=== PATIENT | male | born 1945 | race African-American/Black ===

== ENCOUNTER 2020-03-23 12:52 | Inpatient (IN) | payer MEDICARE, SELFPAY ==
[2020-03-23 12:58] LABS: Glucose, Whole Blood 241 mg/dL (60-115)
[2020-03-23 13:03] VITALS: BP 138/80; PULSE 77; RESP 21; TEMP 36.9; O2SAT 98; BMI 29.2
--- NOTE | 2020-03-23 13:05 | ED_ITS ---
HPI - Weakness General Chief complaint: Altered Mental Status Stated complaint: weakness, lethargy Time Seen by Provider: 03/23/20 13:04 Source: EMS Mode of arrival: EMS History of Present Illness HPI Narrative: 74-year-old male with a past medical history of hypertension, hyperlipidemia, diabetes, hypothyroid, SUSIE, s/p permanent pacemaker BIBA to the ED for increased lethargy and generalized weakness worsening x1 week per EMS. Patient opens eyes to painful/verbal stimuli on exam, otherwise unable to obtain history. History limited due to patient's acute change in mental status. Attempted to call listed phone numbers for family members without answer MD Complaint: generalized weakness Related Data Home Medications Medication Instructions Recorded Confirmed citalopram 1 tab PO DAILY 03/23/20 03/23/20 donepezil 1 tab PO BEDTIME 03/23/20 03/23/20 folic acid 1 tab PO DAILY 03/23/20 03/23/20 memantine 1 tab PO BID 03/23/20 03/23/20 metoprolol succinate 1 tab PO DAILY 03/23/20 03/23/20 multivitamin with folic acid 1 tab PO DAILY 03/23/20 03/23/20 [Tab-A-Gordon] quetiapine 1 tab PO DAILY 03/23/20 03/23/20 Allergies Allergy/AdvReac Type Severity Reaction Status Date / Time No Known Allergies Allergy Unverified 11/30/19 15:53 [No Known Allergies*] Review of Systems Review of Systems: Constitutional: +fatigue Neuro: + Weakness History limited due to patient's [facility] Past Medical History Attestation statement: The following information was validated with the patient. Medical History (Updated 03/23/20 @ 18:53 by JR Aponte) Asthma Dementia Diabetes mellitus, type 2 H/O cardiac pacemaker History of alcohol abuse HLD (hyperlipidemia) Hypertension Hypothyroidism Surgical History (Updated 03/23/20 @ 18:50 by JR Aponte) H/O knee surgery Social History Social History (Updated 03/23/20 @ 18:51 by JR Aponte) Household Members: Family Alcohol intake: former Smoking Status: Never smoker Use of substances other than those prescribed or required for medical reasons: No Advance Directives: No Advance Directives Information Provided: No Physical Exam Vital Signs: Vital Signs: Last Vital Signs Temp 98.5 F 03/23/20 13:03 Pulse 77 03/23/20 19:43 Resp 16 03/23/20 19:43 BP 144/76 H 03/23/20 19:43 Pulse Ox 97 03/23/20 19:43 Body Mass Index 29.2 Const: General: lethargic Orientation/consciousness: lethargic HENMT: Other: Dry mucous membranes Head: Yes normal to inspection Ears: hearing grossly normal bilaterally General nose exam: Normal external nose present Face and sinus: Yes normal facial exam Mouth: mucous membranes dry Eyes: General: appearance normal, both eyes and all related structures Pupils: Equal, round and reactive pupils present Neck: Neck: Yes normal visual inspection Resp: Effort & Inspection: normal respiratory effort Auscultation: diminished lung sounds (Bibasilar) Cardio: Rate: regular rate Heart sounds: S1 normal heart sound present and S2 normal heart sound present GI: Inspection: Yes normal to inspection Palpation (GI): Soft to palpation, nontender, no guarding and not rigid Skin: Rashes: no rashes Wounds: no wounds Neuro: Other: Opens eyes to verbal/painful stimuli. Does not answer questions. Sleeping/snoring during exam Cranial nerves: Yes Equal, round and reactive pupils present Gait exam (Neuro): Normal gait present Extrem: Other: No LE edema General: Yes normal to inspection Course Course Course Narrative: * Lactic 2.4 > likely from dehydration rather than severe sepsis remaining labs pending * Troponin 104.6 > EKG nonischemic, likely from renal dysfunction. will obtain 3 hour repeat * Chest x-ray with mild bibasilar atelectasis * 1430- leukocytosis of 19.5 > empiric IV ceftriaxone ordered. Elevated Na+164 & BUN/ Creatinine slight anion gap c/w severe dehydration >> CT chest and A/P ordered to r/o COVID & obstruction * 1443-spoke to patient's daughter Delores at [phone] (or [phone]) reports patient with history of dementia and aggression, has been slowly declining/lethargic with decreased p.o. intake since . Also reports patient had a fall on Wednesday, unknown head trauma. Usually patient is supposed to ambulate with walker however refuses. At baseline is usually awake and alert talking confused/random thoughts, but admits more recently is lethargic/sleeping and bed-bound * Head CT without acute findings 1639- CT Chest/AP IMPRESSION: No significant disease within the lungs. Left nephrolithiasis without evidence of obstructive uropathy. Distention of the stomach for which some degree of gastric outlet obstruction is not excluded > surgery paged * Spoke to surgical JR Alvarez, recommended NG to likely nonsurgical candidate. Plan for admission * 1800--spoke to Nephrology, Dr. Vásquez recommended Leblanc, monitor I&Os and IV fluids. Will see in a.m. MDM - Weakness MDM Narrative Medical decision making narrative: 74-year-old male with a past medical history of hypertension, hyperlipidemia, diabetes, hypothyroid, SUSIE, s/p permanent pacemaker BIBA to the ED for increased lethargy and generalized weakness worsening x1 week per EMS. On exam NAD, nontoxic appearing, lethargic/sleeping on exam, opens eyes to painful and verbal stimuli. Concern for metabolic/infectious etiology vs encephalopathy vs viral syndrome/COVID-19 Plan: EKG, labs, UA, CXR, head CT, COVID-19/influenza/RSV, IVF, anticipated admission Medical Records Attestation: I reviewed the patient's medical records. Lab Data Attestation: I reviewed the patient's lab results. Result diagrams: 03/23/20 13:32 03/23/20 18:04 Labs: Lab Results 03/23/20 03/23/20 03/23/20 Range/Units 12:55 13:31 13:32 WBC 19.5 H (4.8-10.8) X10*3/uL RBC 5.76 (4.60-5.80) X10*6/uL Hgb 15.9 (14.0-18.0) g/dl Hct 52.4 H (42-52) % MCV 91.0 (80-98) fL MCH 27.6 (27.0-33.0) pg MCHC 30.3 L (31.0-36.0) g/dl RDW 14.1 (11.0-16.0) % Plt Count 90 L (160-400) X10*3/uL Immature Gran % (Auto) 0.5 H (0.0-0.4) % Neut % (Auto) 89.8 H (45-73) % Lymph % (Auto) 3.6 L (20-40) % [place] % (Auto) 5.9 (2-11) % Eos % (Auto) 0.0 (0-4) % Baso % (Auto) 0.2 (0-2) % Lymph # (Auto) 0.7 L (1.2-4.9) X10*3/uL [place] # (Auto) 1.2 (0.1-1.2) X10*3/uL Eos # (Auto) 0.0 (0.0-0.4) X10*3/uL Baso # (Auto) 0.0 (0.0-0.2) X10*3/uL Abs Immat Gran (auto) 0.09 H (0.00-0.03) X10*3/uL Absolute Neuts (auto) 17.5 H (2.0-8.3) X10*3/uL Absolute Nucleated RBC 0.000 (0.0-0.012) X10*3/uL Nucleated RBC % (auto) 0.0 (0.0-0.2) /100WBC Smear Tech's Comments VERIFIED PT (10.8-13.0) SEC INR (0.9-1.1) APTT (24.1-38.0) SEC Sodium (135-145) mmol/L Potassium (3.3-5.1) mmol/l Chloride (96-108) mmol/L Carbon Dioxide (22-29) mmol/L Anion Gap (12-20) BUN (9-16) mg/dL Creatinine (0.5-1.4) mg/dL Estim Creat Clear Calc Estimated GFR POC Glucose 241 H (60-115) mg/dL Random Glucose (60-115) mg/dL Lactic Acid 2.4 H* (0.5-2.0) mmol/L Lactic Acid Fup @ 2Hr (0.5-2.0) mmol/L Calcium (8.4-10.2) mg/dL Magnesium (1.6-2.6) mg/dL Ferritin (20-250) ng/mL Total Bilirubin (0.0-1.0) mg/dL Direct Bilirubin (0.0-0.5) mg/dL AST (5-37) U/L ALT (0-40) U/L Alkaline Phosphatase (39-117) U/L Ammonia (13-55) umol/L Lactate Dehydrogenase (118-273) U/L Total Creatine Kinase (38-174) U/L Troponin I High Sens (<3.5-35.0) ng/L C-Reactive Protein (< or = 0.50) mg/dL Total Protein (6.5-8.0) g/dL Albumin (3.5-5.0) g/dL Lipase (8-78) U/L Procalcitonin ng/mL TSH (0.32-4.0) mIU/mL Urine Color Urine Appearance Urine pH (5.0-8.0) Ur Specific [place] (1.005-1.025) Urine Protein (NEG-TRACE) MG/DL Urine Glucose (UA) (NEG) MG/DL Urine Ketones (NEG) MG/DL Urine Blood (NEG) Urine Nitrite (NEG) Ur Leukocyte Esterase (NEG) Ethyl Alcohol mg/dL Coronavirus (PCR) (Negative) Influenza Type A (PCR) (Negative) Influenza Type B (PCR) (Negative) RSV RNA Qual (PCR) (Negative) 03/23/20 03/23/20 03/23/20 Range/Units 13:32 13:32 13:32 WBC (4.8-10.8) X10*3/uL RBC (4.60-5.80) X10*6/uL Hgb (14.0-18.0) g/dl Hct (42-52) % MCV (80-98) fL MCH (27.0-33.0) pg MCHC (31.0-36.0) g/dl RDW (11.0-16.0) % Plt Count (160-400) X10*3/uL Immature Gran % (Auto) (0.0-0.4) % Neut % (Auto) (45-73) % Lymph % (Auto) (20-40) % [place] % (Auto) (2-11) % Eos % (Auto) (0-4) % Baso % (Auto) (0-2) % Lymph # (Auto) (1.2-4.9) X10*3/uL [place] # (Auto) (0.1-1.2) X10*3/uL Eos # (Auto) (0.0-0.4) X10*3/uL Baso # (Auto) (0.0-0.2) X10*3/uL Abs Immat Gran (auto) (0.00-0.03) X10*3/uL Absolute Neuts (auto) (2.0-8.3) X10*3/uL Absolute Nucleated RBC (0.0-0.012) X10*3/uL Nucleated RBC % (auto) (0.0-0.2) /100WBC Smear Tech's Comments PT (10.8-13.0) SEC INR (0.9-1.1) APTT (24.1-38.0) SEC Sodium 164 H* (135-145) mmol/L Potassium 4.0 (3.3-5.1) mmol/l Chloride 120 H (96-108) mmol/L Carbon Dioxide 27 (22-29) mmol/L Anion Gap 21 H (12-20) BUN 103 H* (9-16) mg/dL Creatinine 3.53 H (0.5-1.4) mg/dL Estim Creat Clear Calc 21.6 Estimated GFR 17 POC Glucose (60-115) mg/dL Random Glucose 316 H (60-115) mg/dL Lactic Acid (0.5-2.0) mmol/L Lactic Acid Fup @ 2Hr (0.5-2.0) mmol/L Calcium 9.5 (8.4-10.2) mg/dL Magnesium 2.9 H (1.6-2.6) mg/dL Ferritin (20-250) ng/mL Total Bilirubin 1.9 H (0.0-1.0) mg/dL Direct Bilirubin 1.1 H (0.0-0.5) mg/dL AST 26 (5-37) U/L ALT 36 (0-40) U/L Alkaline Phosphatase 77 (39-117) U/L Ammonia 44 (13-55) umol/L Lactate Dehydrogenase 189 (118-273) U/L Total Creatine Kinase 374 H (38-174) U/L Troponin I High Sens 104.6 H (<3.5-35.0) ng/L C-Reactive Protein 4.41 H (< or = 0.50) mg/dL Total Protein 7.7 (6.5-8.0) g/dL Albumin 4.2 (3.5-5.0) g/dL Lipase (8-78) U/L Procalcitonin ng/mL TSH (0.32-4.0) mIU/mL Urine Color Urine Appearance Urine pH (5.0-8.0) Ur Specific [place] (1.005-1.025) Urine Protein (NEG-TRACE) MG/DL Urine Glucose (UA) (NEG) MG/DL Urine Ketones (NEG) MG/DL Urine Blood (NEG) Urine Nitrite (NEG) Ur Leukocyte Esterase (NEG) Ethyl Alcohol mg/dL Coronavirus (PCR) (Negative) Influenza Type A (PCR) (Negative) Influenza Type B (PCR) (Negative) RSV RNA Qual (PCR) (Negative) 03/23/20 03/23/20 03/23/20 Range/Units 13:32 13:32 13:32 WBC (4.8-10.8) X10*3/uL RBC (4.60-5.80) X10*6/uL Hgb (14.0-18.0) g/dl Hct (42-52) % MCV (80-98) fL MCH (27.0-33.0) pg MCHC (31.0-36.0) g/dl RDW (11.0-16.0) % Plt Count (160-400) X10*3/uL Immature Gran % (Auto) (0.0-0.4) % Neut % (Auto) (45-73) % Lymph % (Auto) (20-40) % [place] % (Auto) (2-11) % Eos % (Auto) (0-4) % Baso % (Auto) (0-2) % Lymph # (Auto) (1.2-4.9) X10*3/uL [place] # (Auto) (0.1-1.2) X10*3/uL Eos # (Auto) (0.0-0.4) X10*3/uL Baso # (Auto) (0.0-0.2) X10*3/uL Abs Immat Gran (auto) (0.00-0.03) X10*3/uL Absolute Neuts (auto) (2.0-8.3) X10*3/uL Absolute Nucleated RBC (0.0-0.012) X10*3/uL Nucleated RBC % (auto) (0.0-0.2) /100WBC Smear Tech's Comments PT 14.6 H (10.8-13.0) SEC INR 1.2 H (0.9-1.1) APTT 30.6 (24.1-38.0) SEC Sodium (135-145) mmol/L Potassium (3.3-5.1) mmol/l Chloride (96-108) mmol/L Carbon Dioxide (22-29) mmol/L Anion Gap (12-20) BUN (9-16) mg/dL Creatinine (0.5-1.4) mg/dL Estim Creat Clear Calc Estimated GFR POC Glucose (60-115) mg/dL Random Glucose (60-115) mg/dL Lactic Acid (0.5-2.0) mmol/L Lactic Acid Fup @ 2Hr (0.5-2.0) mmol/L Calcium (8.4-10.2) mg/dL Magnesium (1.6-2.6) mg/dL Ferritin 1412 H (20-250) ng/mL Total Bilirubin (0.0-1.0) mg/dL Direct Bilirubin (0.0-0.5) mg/dL AST (5-37) U/L ALT (0-40) U/L Alkaline Phosphatase (39-117) U/L Ammonia (13-55) umol/L Lactate Dehydrogenase (118-273) U/L Total Creatine Kinase (38-174) U/L Troponin I High Sens (<3.5-35.0) ng/L C-Reactive Protein (< or = 0.50) mg/dL Total Protein (6.5-8.0) g/dL Albumin (3.5-5.0) g/dL Lipase 41 (8-78) U/L Procalcitonin ng/mL TSH (0.32-4.0) mIU/mL Urine Color Urine Appearance Urine pH (5.0-8.0) Ur Specific [place] (1.005-1.025) Urine Protein (NEG-TRACE) MG/DL Urine Glucose (UA) (NEG) MG/DL Urine Ketones (NEG) MG/DL Urine Blood (NEG) Urine Nitrite (NEG) Ur Leukocyte Esterase (NEG) Ethyl Alcohol mg/dL Coronavirus (PCR) NEGATIVE (Negative) Influenza Type A (PCR) NEGATIVE (Negative) Influenza Type B (PCR) NEGATIVE (Negative) RSV RNA Qual (PCR) NEGATIVE (Negative) 03/23/20 03/23/20 03/23/20 Range/Units 13:32 13:32 13:56 WBC (4.8-10.8) X10*3/uL RBC (4.60-5.80) X10*6/uL Hgb (14.0-18.0) g/dl Hct (42-52) % MCV (80-98) fL MCH (27.0-33.0) pg MCHC (31.0-36.0) g/dl RDW (11.0-16.0) % Plt Count (160-400) X10*3/uL Immature Gran % (Auto) (0.0-0.4) % Neut % (Auto) (45-73) % Lymph % (Auto) (20-40) % [place] % (Auto) (2-11) % Eos % (Auto) (0-4) % Baso % (Auto) (0-2) % Lymph # (Auto) (1.2-4.9) X10*3/uL [place] # (Auto) (0.1-1.2) X10*3/uL Eos # (Auto) (0.0-0.4) X10*3/uL Baso # (Auto) (0.0-0.2) X10*3/uL Abs Immat Gran (auto) (0.00-0.03) X10*3/uL Absolute Neuts (auto) (2.0-8.3) X10*3/uL Absolute Nucleated RBC (0.0-0.012) X10*3/uL Nucleated RBC % (auto) (0.0-0.2) /100WBC Smear Tech's Comments PT (10.8-13.0) SEC INR (0.9-1.1) APTT (24.1-38.0) SEC Sodium (135-145) mmol/L Potassium (3.3-5.1) mmol/l Chloride (96-108) mmol/L Carbon Dioxide (22-29) mmol/L Anion Gap (12-20) BUN (9-16) mg/dL Creatinine (0.5-1.4) mg/dL Estim Creat Clear Calc Estimated GFR POC Glucose (60-115) mg/dL Random Glucose (60-115) mg/dL Lactic Acid (0.5-2.0) mmol/L Lactic Acid Fup @ 2Hr (0.5-2.0) mmol/L Calcium (8.4-10.2) mg/dL Magnesium (1.6-2.6) mg/dL Ferritin (20-250) ng/mL Total Bilirubin (0.0-1.0) mg/dL Direct Bilirubin (0.0-0.5) mg/dL AST (5-37) U/L ALT (0-40) U/L Alkaline Phosphatase (39-117) U/L Ammonia (13-55) umol/L Lactate Dehydrogenase (118-273) U/L Total Creatine Kinase (38-174) U/L Troponin I High Sens (<3.5-35.0) ng/L C-Reactive Protein (< or = 0.50) mg/dL Total Protein (6.5-8.0) g/dL Albumin (3.5-5.0) g/dL Lipase (8-78) U/L Procalcitonin 0.16 ng/mL TSH (0.32-4.0) mIU/mL Urine Color MICK Urine Appearance HAZY Urine pH 5.0 (5.0-8.0) Ur Specific [place] >= 1.030 H (1.005-1.025) Urine Protein TRACE (NEG-TRACE) MG/DL Urine Glucose (UA) NEG (NEG) MG/DL Urine Ketones 5 (NEG) MG/DL Urine Blood NEG (NEG) Urine Nitrite NEG (NEG) Ur Leukocyte Esterase NEG (NEG) Ethyl Alcohol < 10 mg/dL Coronavirus (PCR) (Negative) Influenza Type A (PCR) (Negative) Influenza Type B (PCR) (Negative) RSV RNA Qual (PCR) (Negative) 03/23/20 03/23/20 03/23/20 Range/Units 18:04 18:04 18:04 WBC (4.8-10.8) X10*3/uL RBC (4.60-5.80) X10*6/uL Hgb (14.0-18.0) g/dl Hct (42-52) % MCV (80-98) fL MCH (27.0-33.0) pg MCHC (31.0-36.0) g/dl RDW (11.0-16.0) % Plt Count (160-400) X10*3/uL Immature Gran % (Auto) (0.0-0.4) % Neut % (Auto) (45-73) % Lymph % (Auto) (20-40) % [place] % (Auto) (2-11) % Eos % (Auto) (0-4) % Baso % (Auto) (0-2) % Lymph # (Auto) (1.2-4.9) X10*3/uL [place] # (Auto) (0.1-1.2) X10*3/uL Eos # (Auto) (0.0-0.4) X10*3/uL Baso # (Auto) (0.0-0.2) X10*3/uL Abs Immat Gran (auto) (0.00-0.03) X10*3/uL Absolute Neuts (auto) (2.0-8.3) X10*3/uL Absolute Nucleated RBC (0.0-0.012) X10*3/uL Nucleated RBC % (auto) (0.0-0.2) /100WBC Smear Tech's Comments PT (10.8-13.0) SEC INR (0.9-1.1) APTT (24.1-38.0) SEC Sodium 164 H* (135-145) mmol/L Potassium 4.4 (3.3-5.1) mmol/l Chloride 121 H (96-108) mmol/L Carbon Dioxide 30 H (22-29) mmol/L Anion Gap 17 (12-20) BUN 102 H* (9-16) mg/dL Creatinine 3.30 H (0.5-1.4) mg/dL Estim Creat Clear Calc 23.1 Estimated GFR 18 POC Glucose (60-115) mg/dL Random Glucose 278 H (60-115) mg/dL Lactic Acid (0.5-2.0) mmol/L Lactic Acid Fup @ 2Hr 3.2 H* (0.5-2.0) mmol/L Calcium 8.8 D (8.4-10.2) mg/dL Magnesium (1.6-2.6) mg/dL Ferritin (20-250) ng/mL Total Bilirubin (0.0-1.0) mg/dL Direct Bilirubin (0.0-0.5) mg/dL AST (5-37) U/L ALT (0-40) U/L Alkaline Phosphatase (39-117) U/L Ammonia (13-55) umol/L Lactate Dehydrogenase (118-273) U/L Total Creatine Kinase (38-174) U/L Troponin I High Sens 103.7 H (<3.5-35.0) ng/L C-Reactive Protein (< or = 0.50) mg/dL Total Protein (6.5-8.0) g/dL Albumin (3.5-5.0) g/dL Lipase (8-78) U/L Procalcitonin ng/mL TSH 2.57 (0.32-4.0) mIU/mL Urine Color Urine Appearance Urine pH (5.0-8.0) Ur Specific [place] (1.005-1.025) Urine Protein (NEG-TRACE) MG/DL Urine Glucose (UA) (NEG) MG/DL Urine Ketones (NEG) MG/DL Urine Blood (NEG) Urine Nitrite (NEG) Ur Leukocyte Esterase (NEG) Ethyl Alcohol mg/dL Coronavirus (PCR) (Negative) Influenza Type A (PCR) (Negative) Influenza Type B (PCR) (Negative) RSV RNA Qual (PCR) (Negative) 03/23/20 03/23/20 Range/Units 18:04 18:39 WBC (4.8-10.8) X10*3/uL RBC (4.60-5.80) X10*6/uL Hgb (14.0-18.0) g/dl Hct (42-52) % MCV (80-98) fL MCH (27.0-33.0) pg MCHC (31.0-36.0) g/dl RDW (11.0-16.0) % Plt Count (160-400) X10*3/uL Immature Gran % (Auto) (0.0-0.4) % Neut % (Auto) (45-73) % Lymph % (Auto) (20-40) % [place] % (Auto) (2-11) % Eos % (Auto) (0-4) % Baso % (Auto) (0-2) % Lymph # (Auto) (1.2-4.9) X10*3/uL [place] # (Auto) (0.1-1.2) X10*3/uL Eos # (Auto) (0.0-0.4) X10*3/uL Baso # (Auto) (0.0-0.2) X10*3/uL Abs Immat Gran (auto) (0.00-0.03) X10*3/uL Absolute Neuts (auto) (2.0-8.3) X10*3/uL Absolute Nucleated RBC (0.0-0.012) X10*3/uL Nucleated RBC % (auto) (0.0-0.2) /100WBC Smear Tech's Comments PT (10.8-13.0) SEC INR (0.9-1.1) APTT (24.1-38.0) SEC Sodium (135-145) mmol/L Potassium (3.3-5.1) mmol/l Chloride (96-108) mmol/L Carbon Dioxide (22-29) mmol/L Anion Gap (12-20) BUN (9-16) mg/dL Creatinine (0.5-1.4) mg/dL Estim Creat Clear Calc Estimated GFR POC Glucose 220 H (60-115) mg/dL Random Glucose (60-115) mg/dL Lactic Acid (0.5-2.0) mmol/L Lactic Acid Fup @ 2Hr (0.5-2.0) mmol/L Calcium (8.4-10.2) mg/dL Magnesium (1.6-2.6) mg/dL Ferritin (20-250) ng/mL Total Bilirubin (0.0-1.0) mg/dL Direct Bilirubin (0.0-0.5) mg/dL AST (5-37) U/L ALT (0-40) U/L Alkaline Phosphatase (39-117) U/L Ammonia (13-55) umol/L Lactate Dehydrogenase (118-273) U/L Total Creatine Kinase (38-174) U/L Troponin I High Sens Cancelled (<3.5-35.0) ng/L C-Reactive Protein (< or = 0.50) mg/dL Total Protein (6.5-8.0) g/dL Albumin (3.5-5.0) g/dL Lipase (8-78) U/L Procalcitonin ng/mL TSH (0.32-4.0) mIU/mL Urine Color Urine Appearance Urine pH (5.0-8.0) Ur Specific [place] (1.005-1.025) Urine Protein (NEG-TRACE) MG/DL Urine Glucose (UA) (NEG) MG/DL Urine Ketones (NEG) MG/DL Urine Blood (NEG) Urine Nitrite (NEG) Ur Leukocyte Esterase (NEG) Ethyl Alcohol mg/dL Coronavirus (PCR) (Negative) Influenza Type A (PCR) (Negative) Influenza Type B (PCR) (Negative) RSV RNA Qual (PCR) (Negative) ECG Data Attestation: I personally reviewed and interpreted this ECG as follows: ECG interpretation date: 03/23/20 Interpretation: EKG with rate of 77, first-degree AV block. Nonischemic, no STEMI Discharge Plan Discharge Clinical Impression: Gastric outlet obstruction, Acute hypernatremia, Acute dehydration Altered mental status Qualifiers: Altered mental status type: unspecified Qualified Code(s): R41.82 - Altered mental status, unspecified Acute renal failure Qualifiers: Acute renal failure type: unspecified Qualified Code(s): N17.9 - Acute kidney failure, unspecified Patient Disposition: Admitted As Inpatient
--- NOTE | 2020-03-23 13:11 | XR_ITS ---
EXAMINATION: XR CHEST CLINICAL INFORMATION: Altered mental status COMPARISON: Chest radiograph from 02/16/2014 TECHNIQUE: Frontal view of the chest was obtained. FINDINGS: Left-sided dual-lead pacemaker, stable. There is no focal consolidation. There is mild bibasilar atelectasis. There is no pneumothorax. The trachea is midline. The cardiac mediastinal silhouette is not enlarged. Aorta demonstrates mild tortuosity with atherosclerotic calcifications. There is no pleural effusion. Degenerative changes of the bilateral glenohumeral and acromioclavicular joints. Mild dextrocurvature of the midthoracic spine. Soft tissues are unremarkable. XR/XR chest 1V IMPRESSION: Mild bibasilar atelectasis.
--- NOTE | 2020-03-23 13:11 | ECG_ITS ---
Test Reason : ALTERED MENTAL Blood Pressure : / mmHG Vent. Rate : 077 BPM Atrial Rate : 077 BPM P-R Int : 348 ms QRS Dur : 094 ms QT Int : 374 ms P-R-T Axes : 077 062 221 degrees QTc Int : 423 ms Sinus rhythm with 1st degree A-V block ST & T wave abnormality, consider lateral ischemia Abnormal ECG When compared with ECG of 17-APR-2015 13:02, Non-specific change in ST segment in Inferior leads ST now depressed in Anterolateral leads Atrial pacing not present now Referred By: Jazzy Escobedo Electronically Signed By:Roberto House
--- NOTE | 2020-03-23 13:11 | CT_ITS ---
EXAMINATION: CT HEAD WITHOUT CONTRAST CLINICAL INFORMATION: Altered mental status COMPARISON: CT head from 05/14/2012 TECHNIQUE: Contiguous axial imaging was performed from the skull base to vertex without intravenous administration of contrast. This CT examination was performed using dose optimization techniques as appropriate, variously including the following: *Automated exposure control *Adjustment of mA and/or kV according to patient size (this includes techniques or standardized protocols for targeted exams where dose is matched to indication/reason for exam; i.e. extremities or head) *Use of iterative reconstruction technique DLP: 654 mGy-cm FINDINGS: There is no evidence of acute intracranial hemorrhage or territorial infarction. Chronic white matter small vessel ischemic changes. Mild cerebral atrophy with ventricular prominence. No abnormal mass effect or midline shift is seen. [place] to white matter differentiation is well preserved. No extra-axial fluid collections are identified. There is no abnormal attenuation within the brain parenchyma. The osseous structures and soft tissues are normal. The mastoid air cells and visualized portions of the paranasal sinuses are well aerated. Vertebrobasilar atherosclerotic calcifications. CT/CT head/brain wo con IMPRESSION: 1. No acute intracranial pathology. 2. Chronic white matter small vessel ischemic changes.
[2020-03-23 13:43] LABS: Basophils Percent Auto 0.2 % (0-2); Imm Gran Abs Auto 0.09 X10*3/uL (0.00-0.03); Imm Gran Pct Auto 0.5 % (0.0-0.4); MANUAL DIFF FLAG SCAN; Mean Corpuscular Hemoglobin 27.6 pg (27.0-33.0); Monocytes Percent Auto 5.9 % (2-11); Red Cell Distribution Width 14.1 % (11.0-16.0); SCAN SMEAR FLAG 1
[2020-03-23 13:44] LABS: Hematocrit 52.4 % (42-52); Hemoglobin 15.9 g/dl (14.0-18.0); Lymphocytes Absolute Auto 0.7 X10*3/uL (1.2-4.9); Lymphocytes Percent Auto 3.6 % (20-40); Mean Corpuscular HGB Conc 30.3 g/dl (31.0-36.0); Monocytes Absolute Auto 1.2 X10*3/uL (0.1-1.2); Neutrophils Absolute Auto 17.5 X10*3/uL (2.0-8.3); Neutrophils Percent Auto 89.8 % (45-73); Red Blood Count 5.76 X10*6/uL (4.60-5.80); White Blood Count 19.5 X10*3/uL (4.8-10.8)
[2020-03-23 13:46] LABS: PLT ABN DIST 1
[2020-03-23] MEDS: 0.9 % Sodium Chloride 500 ML 999 ML IV (13:47)
[2020-03-23 13:49] LABS: INTERNATIONAL NORM RATIO 1.2 (0.9-1.1); Prothrombin Time 14.6 SEC (10.8-13.0)
[2020-03-23 13:51] LABS: Partial Thromboplastin Time 30.6 SEC (24.1-38.0)
[2020-03-23 13:59] LABS: Ammonia 44 umol/L (13-55)
[2020-03-23 14:03] LABS: Glucose Urine UA NEG (NEG); Leukocyte Esterase Urine NEG (NEG); Nitrite Urine NEG (NEG); Specific Gravity - Urine >= 1.030 (1.005-1.025); Urine Blood NEG (NEG); Urine Ketones 5 MG/DL (NEG); Urine Protein TRACE MG/DL (NEG-TRACE)
[2020-03-23 14:04] LABS: Appearance Urine HAZY; Color Urine AMBER
[2020-03-23 14:07] LABS: Lipase 41 U/L (8-78)
[2020-03-23 14:15] LABS: Troponin-I High Sensitivity 104.6 ng/L (<3.5-35.0)
[2020-03-23 14:16] LABS: Lactic Acid 2.4 mmol/L (0.5-2.0)
[2020-03-23 14:19] VITALS: BP 123/80; PULSE 75; RESP 21; O2SAT 98
[2020-03-23 14:20] LABS: Influenza A PCR NEGATIVE (Negative); Influenza B PCR NEGATIVE (Negative); Resp Syncy Virus RNA Qual PCR NEGATIVE (Negative); SARS COV2 PCR INHOUSE NEGATIVE (Negative)
[2020-03-23 14:26] LABS: Platelet Count 90 X10*3/uL (160-400); SLIDE REVIEW VERIFIED
[2020-03-23 14:27] LABS: Alanine Aminotransferase 36 U/L (0-40); Albumin Level 4.2 g/dL (3.5-5.0); Alkaline Phosphatase 77 U/L (39-117); Anion Gap 21 (12-20); Aspartate Amino Transferase 26 U/L (5-37); Bilirubin Direct 1.1 mg/dL (0.0-0.5); Bilirubin Total 1.9 mg/dL (0.0-1.0); Blood Urea Nitrogen 103 mg/dL (9-16); C Reactive Protein 4.41 mg/dL (< or = 0.50); Calcium 9.5 mg/dL (8.4-10.2); Carbon Dioxide 27 mmol/L (22-29); Chloride 120 mmol/L (96-108); Creatinine Clr Calc Pharmacy 21.6; Estimated Glomerular Filt Rate 17; Glucose Random 316 mg/dL (60-115); Lactate Dehydrogenase 189 U/L (118-273); Magnesium 2.9 mg/dL (1.6-2.6); Sodium 164 mmol/L (135-145); Total Protein 7.7 g/dL (6.5-8.0)
[2020-03-23] MEDS: 0.9 % Sodium Chloride 1,000 ML 999 ML IVCONT (14:28)
[2020-03-23 14:29] LABS: Ferritin 1412 ng/mL (20-250)
--- NOTE | 2020-03-23 14:30 | CT_ITS ---
EXAMINATION: CT CHEST, ABDOMEN AND PELVIS WITHOUT CONTRAST CLINICAL INFORMATION: Evaluate for infection/groundglass opacities. Renal dysfunction, evaluate for obstruction. COMPARISON: No pertinent prior studies are available for comparison. TECHNIQUE: Multidetector volumetric imaging was performed from the thoracic inlet through the pubic symphysis following administration of oral and intravenous contrast of 100 mL Ultravist-300 intravenous contrast. Sagittal and coronal reformatted images were obtained on the technologist workstation. This CT examination was performed using dose optimization techniques as appropriate, variously including the following: *Automated exposure control *Adjustment of mA and/or kV according to patient size (this includes techniques or standardized protocols for targeted exams where dose is matched to indication/reason for exam; i.e. extremities or head) *Use of iterative reconstruction technique DLP: 1547 mGy-cm. FINDINGS: CHEST: Lungs: Central airways are patent. There is minor bibasilar dependent atelectatic change. No suspicious lung masses. No findings to just pneumonia. No bronchiectasis. Mediastinum: Pacemaker in place. Coronary artery calcification present. Heart normal size. No thoracic aortic aneurysm. No mediastinal or hilar lymphadenopathy appreciated. There is some distention of the esophagus which appears be related to a distended stomach. Pericardium/Pleura: There is no significant effusion. No pleural mass or thickening. Chest Wall/Axilla: Unremarkable. Left chest wall pacemaker powerpack in place. No axillary or internal mammary lymphadenopathy. ABDOMEN/PELVIS: Liver, Gallbladder, Biliary Tree: The liver is normal in size, shape, and attenuation. No focal hepatic lesion or biliary ductal dilatation is present. The gallbladder is unremarkable with no evidence of radiopaque gallstones, gallbladder wall thickening, or pericholecystic inflammatory changes. Pancreas: Unremarkable. Spleen: Unremarkable. Adrenal Glands: Unremarkable. Kidneys and Ureters: The right kidney has a lobular border without focal mass identified. No hydronephrosis or hydroureter or calculi seen. There is perinephric stranding. There is a 5 mm nonobstructing calculus within the interpolar region of the left kidney. No hydronephrosis. No hydroureter. No calculi within the ureter appreciated. There is a 1.3 cm parapelvic cyst present. There is perinephric stranding. Bladder: Decompressed Gastrointestinal Tract: There is significant gaseous distention which does not involve the duodenum or small bowel. No free air or free fluid is identified. Some degree of gastric outlet obstruction cannot be excluded. No other dilated loops of large or small bowel are evident. No evidence of acute diverticulitis. The appendix appears unremarkable. Abdominal Wall: No hernia is demonstrated. Lymph Nodes: No lymphadenopathy appreciated. Vascular: There is mild aortoiliac calcified plaque present. No abdominal aortic aneurysm. Pelvic Viscera: No suspicious pelvic mass identified. Prostatic calcification seen. Osseous Structures: No suspicious destructive bony lesions identified. There is degenerative change of the sacroiliac joints bilaterally with some regions of fusion. There is calcification of the anterior longitudinal ligament within the thoracic spine. There is severe degenerative disc disease seen at the L5-S1 level. CT/CT abdomen pelvis wo con IMPRESSION: No significant disease within the lungs. Left nephrolithiasis without evidence of obstructive uropathy. Distention of the stomach for which some degree of gastric outlet obstruction is not excluded.
[2020-03-23] MEDS: cefTRIAXone sodium 1 GM in 0.9 % Sodium Chloride 50 ML IV (14:45)
[2020-03-23 14:49] LABS: Ethanol < 10 mg/dL; Procalcitonin 0.16 ng/mL
[2020-03-23 15:38] VITALS: BP 140/69; RESP 16; O2SAT 98
[2020-03-23 15:41] LABS: Reflex Lactate? Lactic Acid Added
--- NOTE | 2020-03-23 18:25 | PM.EVENT ---
Event Note Date of Service: 03/24/20 Event Note: addendum to history and physical by JR Ogden: I interviewed and examined the patient. I discussed their presentation and management with the mid-level provider. I reviewed the history and physical and agree with the documentation, with the following additions and corrections: History per pt's family via telephone as his mentation is altered 74yo M with HTN, HLD, DM2, hypothyroidism, and dementia with worsening aggressive behavior for the past 6 wk Increasing lethargic and not eating or drinking over the last few days No cough No nausea/vomiting/abd pain Found on CT A/P to have gastric outlet obstruction On exam, altered but moving all extremities and following basic commands Extremely dry oral mucosa Lungs clear CV RRR no m/r/g Abd distended Labs notable for WBC 19.5, plt 90, SCr 3.53 [baseline 1], LA 3.5, Na 164 Hs-Tn-I flat at 104 impression: # hypernatremia, hypovolemic - free water deficit approx 2.4L to replace over 24h, will give D5W, consult Nephrology, check Na q4h to ensure correction is not too fast # NIURKA - replete water as above- may also need volume repletion with sodium- consult Nephrology # lactic acidosis - suspect due to due to dehydration, not sepsis # metabolic encephalopathy - correct Na but not too rapidly # gastric outlet obstruction - NG tube, Surg consult # thrombocytopenia - monitor, avoid heparin # DM2 - correction-dose lispro # VTE ppx - SCDS # code - FULL discussed with family
[2020-03-23 18:31] VITALS: BP 131/75; PULSE 77; RESP 18; O2SAT 98
[2020-03-23 18:32] LABS: ~Lactic Acid-LAB USE ONLY 3.2 mmol/L (0.5-2.0)
[2020-03-23 18:34] LABS: Anion Gap 17 (12-20); Calcium 8.8 mg/dL (8.4-10.2); Carbon Dioxide 30 mmol/L (22-29); Chloride 121 mmol/L (96-108); Creatinine Clr Calc Pharmacy 23.1; Estimated Glomerular Filt Rate 18; Glucose Random 278 mg/dL (60-115); Potassium 4.4 mmol/l (3.3-5.1)
--- NOTE | 2020-03-23 18:39 | P.HPHOSP_ITS ---
History of Present Illness Date of Service: 03/23/20 Chief Complaint: altered mental status This is a 74 year old primarily Estonian speaking male with a history of hypertension, dyslipidemia, diabetes, hypothyroidism, dementia sent to the emergency department for increasing altered mental status and lethargy. Family indicates he has been declining since approximately [place]. They said he was having issues with aggression for which they were working with his PCP to control. In the emergency he was altered and unable to provide any history. Brain CT showed no acute abnormalities. Lab work was significant for leukocytosis of 19.5. BUN/creatinine were elevated at 103/3.53, Sodium of 164, lactic acid 2.4. No source of infection was identified. Urinalysis, chest CT were unremarkable. CT scan of the abdomen demonstrated concern for gastric outlet obstruction. General surgery recommended placing NG tube. He was started on IVF. Nephrology was contacted who recommended placement of Stevens for fluid management. Review of Systems Review of Systems: Yes Unobtainable due to mental status Neurologic: Reports confusion Psychiatric: Psychiatric: Reports confusion [facility] Medical History (Updated 03/23/20 @ 18:53 by JR Aponte) Asthma Dementia Diabetes mellitus, type 2 H/O cardiac pacemaker History of alcohol abuse HLD (hyperlipidemia) Hypertension Hypothyroidism Functional capacity: uses cane/walker Pertinent family history: + for DM, HTN Family history: reviewed and not pertinent Surgical History (Updated 03/23/20 @ 18:50 by JR Aponte) H/O knee surgery Social History (Updated 03/23/20 @ 18:51 by JR Aponte) Household Members: Family Alcohol intake: former Smoking Status: Never smoker Use of substances other than those prescribed or required for medical reasons: No Advance Directives: No Advance Directives Information Provided: No Meds Allergies Allergy/AdvReac Type Severity Reaction Status Date / Time No Known Allergies Allergy Unverified 11/30/19 15:53 [No Known Allergies*] Home Medications Medication Instructions Recorded Confirmed Type citalopram 1 tab PO DAILY 03/23/20 03/23/20 History donepezil 1 tab PO BEDTIME 03/23/20 03/23/20 History folic acid 1 tab PO DAILY 03/23/20 03/23/20 History memantine 1 tab PO BID 03/23/20 03/23/20 History metoprolol succinate 1 tab PO DAILY 03/23/20 03/23/20 History multivitamin with folic acid 1 tab PO DAILY 03/23/20 03/23/20 History [Tab-A-Gordon] quetiapine 1 tab PO DAILY 03/23/20 03/23/20 History Physical Exam Vital Signs and Narrative: Vital Signs: Last Vital Signs Temp 98.5 F 03/23/20 13:03 Pulse 77 03/23/20 18:31 Resp 18 03/23/20 18:31 BP 131/75 03/23/20 18:31 Pulse Ox 98 03/23/20 18:31 Body Mass Index 29.2 Const: Other: opens eyes to verbal stimuli, will follow some basic commands General: confusion and lethargic Orientation/consciousness: confusion and lethargic HENMT: Other: dry mucous membranes Head: Yes normocephalic and Yes atraumatic Eyes: Sclerae: sclerae normal Chest: Chest palpation & inspection: normal inspection of the chest Resp: Effort & Inspection: normal respiratory effort and no respiratory distress Cardio: Rate: regular rate Rhythm: regular rhythm GI: Palpation (GI): Soft to palpation and nontender Skin: General skin exam: no rashes or lesions noted Neuro: General: confusion Cranial nerves: Yes CN's II-XII intact bilaterally and Yes Bilaterally intact EOM present Extrem: General: Yes normal to inspection Results Labs CBC and Chem 7: 03/23/20 13:32 03/23/20 18:04 Labs: Laboratory Results - last 24 hr 03/23/20 03/23/20 03/23/20 12:55 13:31 13:32 MCV 91.0 MCH 27.6 MCHC 30.3 L RDW 14.1 Plt Count 90 L Immature Gran % (Auto) 0.5 H Neut % (Auto) 89.8 H Lymph % (Auto) 3.6 L Burnett % (Auto) 5.9 Eos % (Auto) 0.0 Baso % (Auto) 0.2 Lymph # (Auto) 0.7 L Burnett # (Auto) 1.2 Eos # (Auto) 0.0 Baso # (Auto) 0.0 Abs Immat Gran (auto) 0.09 H Absolute Neuts (auto) 17.5 H Absolute Nucleated RBC 0.000 Nucleated RBC % (auto) 0.0 Smear Tech's Comments VERIFIED PT INR APTT Anion Gap Estim Creat Clear Calc Estimated GFR POC Glucose 241 H Random Glucose Lactic Acid 2.4 H* Lactic Acid Fup @ 2Hr Calcium Magnesium Ferritin Total Bilirubin Direct Bilirubin AST ALT Alkaline Phosphatase Ammonia Lactate Dehydrogenase Total Creatine Kinase Troponin I High Sens C-Reactive Protein Total Protein Albumin Lipase Procalcitonin Urine Color Urine Appearance Urine pH Ur Specific [place] Urine Protein Urine Glucose (UA) Urine Ketones Urine Blood Urine Nitrite Ur Leukocyte Esterase Ethyl Alcohol Coronavirus (PCR) Influenza Type A (PCR) Influenza Type B (PCR) RSV RNA Qual (PCR) 03/23/20 03/23/20 03/23/20 13:32 13:32 13:32 MCV MCH MCHC RDW Plt Count Immature Gran % (Auto) Neut % (Auto) Lymph % (Auto) Burnett % (Auto) Eos % (Auto) Baso % (Auto) Lymph # (Auto) Burnett # (Auto) Eos # (Auto) Baso # (Auto) Abs Immat Gran (auto) Absolute Neuts (auto) Absolute Nucleated RBC Nucleated RBC % (auto) Smear Tech's Comments PT INR APTT Anion Gap 21 H Estim Creat Clear Calc 21.6 Estimated GFR 17 POC Glucose Random Glucose 316 H Lactic Acid Lactic Acid Fup @ 2Hr Calcium 9.5 Magnesium 2.9 H Ferritin Total Bilirubin 1.9 H Direct Bilirubin 1.1 H AST 26 ALT 36 Alkaline Phosphatase 77 Ammonia 44 Lactate Dehydrogenase 189 Total Creatine Kinase 374 H Troponin I High Sens 104.6 H C-Reactive Protein 4.41 H Total Protein 7.7 Albumin 4.2 Lipase Procalcitonin Urine Color Urine Appearance Urine pH Ur Specific [place] Urine Protein Urine Glucose (UA) Urine Ketones Urine Blood Urine Nitrite Ur Leukocyte Esterase Ethyl Alcohol Coronavirus (PCR) Influenza Type A (PCR) Influenza Type B (PCR) RSV RNA Qual (PCR) 03/23/20 03/23/20 03/23/20 13:32 13:32 13:32 MCV MCH MCHC RDW Plt Count Immature Gran % (Auto) Neut % (Auto) Lymph % (Auto) Burnett % (Auto) Eos % (Auto) Baso % (Auto) Lymph # (Auto) Burnett # (Auto) Eos # (Auto) Baso # (Auto) Abs Immat Gran (auto) Absolute Neuts (auto) Absolute Nucleated RBC Nucleated RBC % (auto) Smear Tech's Comments PT 14.6 H INR 1.2 H APTT 30.6 Anion Gap Estim Creat Clear Calc Estimated GFR POC Glucose Random Glucose Lactic Acid Lactic Acid Fup @ 2Hr Calcium Magnesium Ferritin 1412 H Total Bilirubin Direct Bilirubin AST ALT Alkaline Phosphatase Ammonia Lactate Dehydrogenase Total Creatine Kinase Troponin I High Sens C-Reactive Protein Total Protein Albumin Lipase 41 Procalcitonin Urine Color Urine Appearance Urine pH Ur Specific [place] Urine Protein Urine Glucose (UA) Urine Ketones Urine Blood Urine Nitrite Ur Leukocyte Esterase Ethyl Alcohol Coronavirus (PCR) NEGATIVE Influenza Type A (PCR) NEGATIVE Influenza Type B (PCR) NEGATIVE RSV RNA Qual (PCR) NEGATIVE 03/23/20 03/23/20 03/23/20 13:32 13:32 13:56 MCV MCH MCHC RDW Plt Count Immature Gran % (Auto) Neut % (Auto) Lymph % (Auto) Burnett % (Auto) Eos % (Auto) Baso % (Auto) Lymph # (Auto) Burnett # (Auto) Eos # (Auto) Baso # (Auto) Abs Immat Gran (auto) Absolute Neuts (auto) Absolute Nucleated RBC Nucleated RBC % (auto) Smear Tech's Comments PT INR APTT Anion Gap Estim Creat Clear Calc Estimated GFR POC Glucose Random Glucose Lactic Acid Lactic Acid Fup @ 2Hr Calcium Magnesium Ferritin Total Bilirubin Direct Bilirubin AST ALT Alkaline Phosphatase Ammonia Lactate Dehydrogenase Total Creatine Kinase Troponin I High Sens C-Reactive Protein Total Protein Albumin Lipase Procalcitonin 0.16 Urine Color MICK Urine Appearance HAZY Urine pH 5.0 Ur Specific [place] >= 1.030 H Urine Protein TRACE Urine Glucose (UA) NEG Urine Ketones 5 Urine Blood NEG Urine Nitrite NEG Ur Leukocyte Esterase NEG Ethyl Alcohol < 10 Coronavirus (PCR) Influenza Type A (PCR) Influenza Type B (PCR) RSV RNA Qual (PCR) 03/23/20 03/23/20 03/23/20 18:04 18:04 18:04 MCV MCH MCHC RDW Plt Count Immature Gran % (Auto) Neut % (Auto) Lymph % (Auto) Burnett % (Auto) Eos % (Auto) Baso % (Auto) Lymph # (Auto) Burnett # (Auto) Eos # (Auto) Baso # (Auto) Abs Immat Gran (auto) Absolute Neuts (auto) Absolute Nucleated RBC Nucleated RBC % (auto) Smear Tech's Comments PT INR APTT Anion Gap 17 Estim Creat Clear Calc 23.1 Estimated GFR 18 POC Glucose Random Glucose 278 H Lactic Acid Lactic Acid Fup @ 2Hr 3.2 H* Calcium 8.8 D Magnesium Ferritin Total Bilirubin Direct Bilirubin AST ALT Alkaline Phosphatase Ammonia Lactate Dehydrogenase Total Creatine Kinase Troponin I High Sens Cancelled C-Reactive Protein Total Protein Albumin Lipase Procalcitonin Urine Color Urine Appearance Urine pH Ur Specific [place] Urine Protein Urine Glucose (UA) Urine Ketones Urine Blood Urine Nitrite Ur Leukocyte Esterase Ethyl Alcohol Coronavirus (PCR) Influenza Type A (PCR) Influenza Type B (PCR) RSV RNA Qual (PCR) Imaging Radiologist's Impressions: Impressions Abdomen/Pelvis CT 03/23/20 14:30 IMPRESSION: No significant disease within the lungs. Left nephrolithiasis without evidence of obstructive uropathy. Distention of the stomach for which some degree of gastric outlet obstruction is not excluded. Chest CT 03/23/20 14:30 IMPRESSION: No significant disease within the lungs. Left nephrolithiasis without evidence of obstructive uropathy. Distention of the stomach for which some degree of gastric outlet obstruction is not excluded. Assessment and Plan (1) Metabolic encephalopathy: Status: Acute (2) Acute hypernatremia: Status: Acute (3) Gastric outlet obstruction: Status: Acute This is a 74 year male with history of dementia, diabetes, hypothyroidism hypertension, dyslipidemia sent to the emergency department with increasing altered mental status, weakness and lethargy found to have NIURKA, hypernatremia and possible gastric outlet obstruction Metabolic encephalopathy Related to underlying dehydration, NIURKA, hypernatremia NIURKA Likely pre renal related to decreased p.o. intake -IVF -nephrology consult -follow renal function, avoid nephrotoxic meds -stevens to monitor strict Is& Os hypernatremia/dehydration -Gentle IVF -q4h sodium checks -nephrology Elevated lactic acid r/t dehydration No source of infection identified, no evidence of sepsis -IVF Gastric outlet obstruction NG tube per surgical recommendation General surgery consult Leukocytosis ?reactive/hemoconcentration -no source of infection -follow CBC Thrombocytopenia Follow CBC Elevated troponin Cardiac enzymes flat Likely secondary to renal dysfunction. No further workup indicated at this time Diabetes SSI, POC Med reconciliation pending at this time Jeovany DVT prophylaxis-heparin Code status-full code This case was discussed with Dr. Wagner
[2020-03-23 18:41] LABS: Blood Urea Nitrogen 102 mg/dL (9-16); Sodium 164 mmol/L (135-145); Troponin-I High Sensitivity 103.7 ng/L (<3.5-35.0)
[2020-03-23 18:42] LABS: Glucose, Whole Blood 220 mg/dL (60-115)
[2020-03-23] MEDS: Dextrose 5 % 1,000 ML 75 ML IVCONT (18:55)
[2020-03-23] MEDS: Heparin Sodium,Porcine 5,000 UNIT/ML VIAL 5000 UNIT SUBCUT (18:55)
[2020-03-23 19:26] LABS: TSH reflex Free T4 2.57 mIU/mL (0.32-4.0)
--- NOTE | 2020-03-23 19:41 | PC.NURSE ---
REPORT TAKEN FROM AMY CHAVEZ. FIRST CONTACT WITH PT. RESTING IN BED SKIN PWD, ALERT AND DISORIENTED. ABLE TO FOLLOW SIMPLE COMMANDS IN GERMAN.IVF INFUSING WITHOUT DIFFICULTY, NG TUBE HOOKED TO INTERMITTENT SUCTION DRAINING SIGNIFICANT AMOUNT OF DARK BROWN GASTRIC FLUIDS. FC IN PLACE DRAINING CONCENTRATED YELLOW URINE. VSS. PT AWAITING BED ASSIGNMENT FOR ADMISSION.
[2020-03-23 19:43] VITALS: BP 144/76; PULSE 77; RESP 16; O2SAT 97
[2020-03-23 20:06] LABS: Reflex Lactate? 2 Y
[2020-03-23] MEDS: Haloperidol Lactate 5 MG/ML VIAL 2.5 MG IVPUSH (20:36)
--- NOTE | 2020-03-23 20:36 | PC.NURSE ---
PT MEDICATED WITH HALDOL IVP PER HOSPITALIST ORDER TO ENABLE PT TO BETTER PARTICIPATE IN HIS CARE. ORAL CARE PROVIDEx2. VS REMAIN STABLE, NG CONTINUES TO SUCTION DARK BROWN FLUID.
[2020-03-23 21:02] LABS: Glucose, Whole Blood 268 mg/dL (60-115)
[2020-03-23 22:01] LABS: Sodium 163 mmol/L (135-145); ~Lactic Acid-LAB USE ONLY 3.5 mmol/L (0.5-2.0)
[2020-03-23 23:00] VITALS: BP 133/74; PULSE 77; RESP 18; TEMP 37.4; O2SAT 96
--- NOTE | 2020-03-24 | XR_ITS ---
EXAMINATION: XR CHEST CLINICAL INFORMATION: NG tube placement COMPARISON: 03/23/2020 TECHNIQUE: Frontal view of the chest was obtained. FINDINGS: Left chest wall pacer noted. Cardiac leads overlie the chest. The enteric tube is poorly visualized. A tube is seen in the esophagus extending to at least the level of the distal esophagus. This is not definitively seen within the stomach. The lungs are well expanded. The lung apices are not included in the [id number] of this study. No pleural effusion. No dense consolidation. No large pneumothorax. The cardiomediastinal silhouette is unchanged. XR/XR chest 1V IMPRESSION: Limited visualization of the enteric tube. Tube is seen within the esophagus extending to at least the distal esophagus. This is not seen definitively within the stomach. Consider advancement and repeat imaging.
--- NOTE | 2020-03-24 | XR_ITS ---
EXAMINATION: XR CHEST CLINICAL INFORMATION: NG tube placement COMPARISON: Chest radiograph from 03/24/2020 TECHNIQUE: Frontal view of the chest was obtained. FINDINGS: Interval placement of a nasogastric tube coursing below the left hemidiaphragm with its distal tip and sidehole within the stomach. Left chest wall pacer with dual leads, stable. No focal consolidation. There is no pneumothorax. The trachea is midline. Cardiac and mediastinal silhouette is enlarged. There is no pleural effusions. Osseous structures are intact. Soft tissues are unremarkable. XR/XR chest 1V IMPRESSION: Interval placement of a nasogastric tube coursing below the left hemidiaphragm with its distal tip and sidehole within the stomach.
[2020-03-24] MEDS: 0.9 % Sodium Chloride Flush 3 ML SYRINGE IVFLUSH ×3 (00:23→15:23)
--- NOTE | 2020-03-24 00:23 | PC.NURSE ---
PT RESTING IN BED EYES CLOSED SKIN PWD, RESPIRATIONS EVEN UNLABORED. SUCTION CANISTER CHANGED 600ML BROWN GASTRIC FLUID DRAINED FROM NG.
--- NOTE | 2020-03-24 02:02 | PC.NURSE ---
PT RESTLESS, REQUIRES CONSTANT REDIRECTING FROM PULLING AT NG AND FC TUBING. ORAL CARE PROVIDED, NEW WARM BLANKETS PROVIDED.RN AT BEDSIDE TO MONITOR PT CLOSELY.
[2020-03-24 03:32] LABS: Sodium 164 mmol/L (135-145)
--- NOTE | 2020-03-24 05:32 | PC.NURSE ---
SODIUM LEVEL UNCHANGED- PT APPEARS TO BE HALLUCINATING, REACHING OUT IN FRONT OF HIM, SPEAKING OUT TO NOONE IN ROOM. HOSPITALIST NOTIFIED. NEW ORDER FOR CHANGE OF FLUIDS. VSS, NG CONTINUES TO REMOVE BROWN GASTRIC FLUID, F/C DRAINING CONCENTRATED YELLOW URINE. AWAITING BED ASSIGNMENT FOR ADMISSION.
--- NOTE | 2020-03-24 05:38 | PM.EVENT ---
Event Note Date of Service: 03/24/20 Event Note: Pt remains hypernatremic despite being on d5W. will switch to 1/2 NS
[2020-03-24] MEDS: Sodium Chloride 0.45 % 1,000 ML 100 ML IVCONT (05:46)
[2020-03-24 05:48] VITALS: BP 117/55; PULSE 76; RESP 18; TEMP 37; O2SAT 96
[2020-03-24 06:17] LABS: Eosinophils Percent Auto 0.1 % (0-4); Hemoglobin 14.1 g/dl (14.0-18.0); Lymphocytes Absolute Auto 1.2 X10*3/uL (1.2-4.9); MANUAL DIFF FLAG SCAN; Mean Corpuscular Hemoglobin 27.6 pg (27.0-33.0); Monocytes Percent Auto 7.6 % (2-11); Red Blood Count 5.11 X10*6/uL (4.60-5.80); SCAN SMEAR FLAG 1
[2020-03-24] MEDS: Heparin Sodium,Porcine 5,000 UNIT/ML VIAL 5000 UNIT SUBCUT ×2 (06:18→21:33)
[2020-03-24 06:19] LABS: Basophils Percent Auto 0.2 % (0-2); Hematocrit 46.4 % (42-52); Imm Gran Abs Auto 0.07 X10*3/uL (0.00-0.03); Imm Gran Pct Auto 0.4 % (0.0-0.4); Lymphocytes Percent Auto 6.9 % (20-40); Mean Corpuscular HGB Conc 30.4 g/dl (31.0-36.0); Mean Corpuscular Volume 90.8 fL (80-98); Monocytes Absolute Auto 1.4 X10*3/uL (0.1-1.2); Neutrophils Percent Auto 84.8 % (45-73); Red Cell Distribution Width 14.2 % (11.0-16.0); White Blood Count 17.7 X10*3/uL (4.8-10.8)
--- NOTE | 2020-03-24 06:30 | PC.NURSE ---
PT TUGGED ON NG TUBE CHEST XRAY ORDERED TO CHECK PLACEMENT.
[2020-03-24 06:34] LABS: PLT ABN DIST 1; Platelet Count 63 X10*3/uL (160-400)
[2020-03-24 06:41] LABS: Sodium 162 mmol/L (135-145)
--- NOTE | 2020-03-24 06:44 | PC.NURSE ---
SUCTION REMAINS OFF WHILE WAITING FOR CXRAY CONFIRMATION OF CURRENT PLACEMENT OF NG.
[2020-03-24 06:46] LABS: SLIDE REVIEW VERIFIED
[2020-03-24] MEDS: Insulin Lispro 100 UNIT/ML 3 ML VIAL SUBCUT ×2 (07:30→12:47)
[2020-03-24 07:33] VITALS: BP 107/61; PULSE 77; RESP 13; O2SAT 96
[2020-03-24 08:38] VITALS: BP 127/70; PULSE 77; RESP 18
[2020-03-24 08:38] LABS: Glucose, Whole Blood 259 mg/dL (60-115)
--- NOTE | 2020-03-24 09:19 | PM.CNGS ---
History of Present Illness Consult details Consult date: 03/24/20 <JR Yan - Last Filed: 03/24/20 11:00> Reason for consult: abdominal pain <JR Yan - Last Filed: 03/24/20 11:00> Requesting physician: Jazzy Escobedo <JR Yan - Last Filed: 03/24/20 11:00> Narrative: 74-year-old male with a past medical history of hypertension, hyperlipidemia, diabetes, hypothyroid, SUSIE, s/p permanent pacemaker presented to the ED by ambulance for increased lethargy and generalized weakness worsening x1 week. History limited due to patient's mental status and language barrier. Brain CT showed no acute abnormalities. Lab work was significant for leukocytosis of 19.5. BUN/creatinine were elevated at 103/3.53, Sodium of 164, lactic acid 2.4. No source of infection was identified. Urinalysis, chest CT were unremarkable. CT scan of the abdomen demonstrated concern for gastric outlet obstruction and surgery was consulted for further evaluation. Patient was seen this AM. He is resting comfortable in bed, appears to be in no acute distress. <JR Yan - Last Filed: 03/24/20 11:00> Review of Systems Neurologic: Reports confusion <JR Yan - Last Filed: 03/24/20 11:00> Psychiatric: Psychiatric: Reports confusion <JR Yan - Last Filed: 03/24/20 11:00> FOR[facility]LY [facility], [facility] Past Medical History Medical History: Medical History (Updated 03/24/20 @ 09:37 by JR Yan) Asthma Dementia Diabetes mellitus, type 2 H/O cardiac pacemaker History of alcohol abuse HLD (hyperlipidemia) Hypertension Hypothyroidism <JR Yan - Last Filed: 03/24/20 11:00> Functional capacity: uses cane/walker <JR Yan - Last Filed: 03/24/20 11:00> Family History Family history: reviewed and not pertinent <JR Yan - Last Filed: 03/24/20 11:00> Surgical History Surgical History: Surgical History (Updated 03/23/20 @ 18:50 by JR Aponte) H/O knee surgery <JR Yan - Last Filed: 03/24/20 11:00> Social History Social History: Social History (Updated 03/23/20 @ 18:51 by JR Aponte) Household Members: Family Alcohol intake: former Smoking Status: Never smoker Use of substances other than those prescribed or required for medical reasons: No Advance Directives: No Advance Directives Information Provided: No <JR Yan - Last Filed: 03/24/20 11:00> Meds Allergies/Adverse reactions: Allergies Allergy/AdvReac Type Severity Reaction Status Date / Time No Known Allergies Allergy Unverified 11/30/19 15:53 [No Known Allergies*] <JR Yan - Last Filed: 03/24/20 11:00> Home medications: Home Medications Medication Instructions Recorded Confirmed Type citalopram 1 tab PO DAILY 03/23/20 03/23/20 History donepezil 1 tab PO BEDTIME 03/23/20 03/23/20 History folic acid 1 tab PO DAILY 03/23/20 03/23/20 History memantine 1 tab PO BID 03/23/20 03/23/20 History metoprolol succinate 1 tab PO DAILY 03/23/20 03/23/20 History multivitamin with folic acid 1 tab PO DAILY 03/23/20 03/23/20 History [Tab-A-Gordon] quetiapine 1 tab PO DAILY 03/23/20 03/23/20 History <RJ Yan - Last Filed: 03/24/20 11:00> Physical Exam Vital Signs: Vital Signs: Last Vital Signs Temp 98.6 F 03/24/20 05:48 Pulse 77 03/24/20 08:38 Resp 18 03/24/20 08:38 BP 127/70 03/24/20 08:38 Pulse Ox 96 03/24/20 07:33 Body Mass Index 29.2 <JR Yan - Last Filed: 03/24/20 11:00> Const: General: confusion <JR Yan - Last Filed: 03/24/20 11:00> Orientation/consciousness: confusion <JR Yan - Last Filed: 03/24/20 11:00> Chest: Chest palpation & inspection: normal inspection of the chest <JR Yan - Last Filed: 03/24/20 11:00> Resp: Effort & Inspection: normal respiratory effort <JR Yan - Last Filed: 03/24/20 11:00> Auscultation: clear to auscultation bilaterally <JR Yan - Last Filed: 03/24/20 11:00> Cardio: Rate: regular rate <JR Yan - Last Filed: 03/24/20 11:00> Skin: General skin exam: no rashes or lesions noted <JR Yan - Last Filed: 03/24/20 11:00> Neuro: General: confusion <JR Yan - Last Filed: 03/24/20 11:00> Extrem: General: Yes no calf tenderness <JR Yan - Last Filed: 03/24/20 11:00> Results Labs Result diagrams: : 03/24/20 06:09 03/24/20 06:09 <JR Yan - Last Filed: 03/24/20 11:00> Labs: Abnormal lab results 03/23/20 03/23/20 03/23/20 Range/Units 12:55 13:31 13:32 WBC 19.5 H (4.8-10.8) X10*3/uL Hct 52.4 H (42-52) % MCHC 30.3 L (31.0-36.0) g/dl Plt Count 90 L (160-400) X10*3/uL Immature Gran % (Auto) 0.5 H (0.0-0.4) % Neut % (Auto) 89.8 H (45-73) % Lymph % (Auto) 3.6 L (20-40) % Lymph # (Auto) 0.7 L (1.2-4.9) X10*3/uL [place] # (Auto) (0.1-1.2) X10*3/uL Abs Immat Gran (auto) 0.09 H (0.00-0.03) X10*3/uL Absolute Neuts (auto) 17.5 H (2.0-8.3) X10*3/uL PT (10.8-13.0) SEC INR (0.9-1.1) Sodium (135-145) mmol/L Chloride (96-108) mmol/L Carbon Dioxide (22-29) mmol/L Anion Gap (12-20) BUN (9-16) mg/dL Creatinine (0.5-1.4) mg/dL POC Glucose 241 H (60-115) mg/dL Random Glucose (60-115) mg/dL Lactic Acid 2.4 H* (0.5-2.0) mmol/L Lactic Acid Fup @ 2Hr (0.5-2.0) mmol/L Lactic Acid Fup @ 4Hr (0.5-2.0) mmol/L Magnesium (1.6-2.6) mg/dL Ferritin (20-250) ng/mL Total Bilirubin (0.0-1.0) mg/dL Direct Bilirubin (0.0-0.5) mg/dL Total Creatine Kinase (38-174) U/L Troponin I High Sens (<3.5-35.0) ng/L C-Reactive Protein (< or = 0.50) mg/dL Ur Specific [place] (1.005-1.025) 03/23/20 03/23/20 03/23/20 Range/Units 13:32 13:32 13:32 WBC (4.8-10.8) X10*3/uL Hct (42-52) % MCHC (31.0-36.0) g/dl Plt Count (160-400) X10*3/uL Immature Gran % (Auto) (0.0-0.4) % Neut % (Auto) (45-73) % Lymph % (Auto) (20-40) % Lymph # (Auto) (1.2-4.9) X10*3/uL [place] # (Auto) (0.1-1.2) X10*3/uL Abs Immat Gran (auto) (0.00-0.03) X10*3/uL Absolute Neuts (auto) (2.0-8.3) X10*3/uL PT 14.6 H (10.8-13.0) SEC INR 1.2 H (0.9-1.1) Sodium 164 H* (135-145) mmol/L Chloride 120 H (96-108) mmol/L Carbon Dioxide (22-29) mmol/L Anion Gap 21 H (12-20) BUN 103 H* (9-16) mg/dL Creatinine 3.53 H (0.5-1.4) mg/dL POC Glucose (60-115) mg/dL Random Glucose 316 H (60-115) mg/dL Lactic Acid (0.5-2.0) mmol/L Lactic Acid Fup @ 2Hr (0.5-2.0) mmol/L Lactic Acid Fup @ 4Hr (0.5-2.0) mmol/L Magnesium 2.9 H (1.6-2.6) mg/dL Ferritin (20-250) ng/mL Total Bilirubin 1.9 H (0.0-1.0) mg/dL Direct Bilirubin 1.1 H (0.0-0.5) mg/dL Total Creatine Kinase 374 H (38-174) U/L Troponin I High Sens 104.6 H (<3.5-35.0) ng/L C-Reactive Protein 4.41 H (< or = 0.50) mg/dL Ur Specific [place] (1.005-1.025) 03/23/20 03/23/20 03/23/20 Range/Units 13:32 13:56 18:04 WBC (4.8-10.8) X10*3/uL Hct (42-52) % MCHC (31.0-36.0) g/dl Plt Count (160-400) X10*3/uL Immature Gran % (Auto) (0.0-0.4) % Neut % (Auto) (45-73) % Lymph % (Auto) (20-40) % Lymph # (Auto) (1.2-4.9) X10*3/uL [place] # (Auto) (0.1-1.2) X10*3/uL Abs Immat Gran (auto) (0.00-0.03) X10*3/uL Absolute Neuts (auto) (2.0-8.3) X10*3/uL PT (10.8-13.0) SEC INR (0.9-1.1) Sodium (135-145) mmol/L Chloride (96-108) mmol/L Carbon Dioxide (22-29) mmol/L Anion Gap (12-20) BUN (9-16) mg/dL Creatinine (0.5-1.4) mg/dL POC Glucose (60-115) mg/dL Random Glucose (60-115) mg/dL Lactic Acid (0.5-2.0) mmol/L Lactic Acid Fup @ 2Hr (0.5-2.0) mmol/L Lactic Acid Fup @ 4Hr (0.5-2.0) mmol/L Magnesium (1.6-2.6) mg/dL Ferritin 1412 H (20-250) ng/mL Total Bilirubin (0.0-1.0) mg/dL Direct Bilirubin (0.0-0.5) mg/dL Total Creatine Kinase (38-174) U/L Troponin I High Sens 103.7 H (<3.5-35.0) ng/L C-Reactive Protein (< or = 0.50) mg/dL Ur Specific [place] >= 1.030 H (1.005-1.025) 03/23/20 03/23/20 03/23/20 Range/Units 18:04 18:04 18:39 WBC (4.8-10.8) X10*3/uL Hct (42-52) % MCHC (31.0-36.0) g/dl Plt Count (160-400) X10*3/uL Immature Gran % (Auto) (0.0-0.4) % Neut % (Auto) (45-73) % Lymph % (Auto) (20-40) % Lymph # (Auto) (1.2-4.9) X10*3/uL [place] # (Auto) (0.1-1.2) X10*3/uL Abs Immat Gran (auto) (0.00-0.03) X10*3/uL Absolute Neuts (auto) (2.0-8.3) X10*3/uL PT (10.8-13.0) SEC INR (0.9-1.1) Sodium 164 H* (135-145) mmol/L Chloride 121 H (96-108) mmol/L Carbon Dioxide 30 H (22-29) mmol/L Anion Gap (12-20) BUN 102 H* (9-16) mg/dL Creatinine 3.30 H (0.5-1.4) mg/dL POC Glucose 220 H (60-115) mg/dL Random Glucose 278 H (60-115) mg/dL Lactic Acid (0.5-2.0) mmol/L Lactic Acid Fup @ 2Hr 3.2 H* (0.5-2.0) mmol/L Lactic Acid Fup @ 4Hr (0.5-2.0) mmol/L Magnesium (1.6-2.6) mg/dL Ferritin (20-250) ng/mL Total Bilirubin (0.0-1.0) mg/dL Direct Bilirubin (0.0-0.5) mg/dL Total Creatine Kinase (38-174) U/L Troponin I High Sens (<3.5-35.0) ng/L C-Reactive Protein (< or = 0.50) mg/dL Ur Specific [place] (1.005-1.025) 03/23/20 03/23/20 03/23/20 Range/Units 20:58 21:26 21:26 WBC (4.8-10.8) X10*3/uL Hct (42-52) % MCHC (31.0-36.0) g/dl Plt Count (160-400) X10*3/uL Immature Gran % (Auto) (0.0-0.4) % Neut % (Auto) (45-73) % Lymph % (Auto) (20-40) % Lymph # (Auto) (1.2-4.9) X10*3/uL [place] # (Auto) (0.1-1.2) X10*3/uL Abs Immat Gran (auto) (0.00-0.03) X10*3/uL Absolute Neuts (auto) (2.0-8.3) X10*3/uL PT (10.8-13.0) SEC INR (0.9-1.1) Sodium 163 H* (135-145) mmol/L Chloride (96-108) mmol/L Carbon Dioxide (22-29) mmol/L Anion Gap (12-20) BUN (9-16) mg/dL Creatinine (0.5-1.4) mg/dL POC Glucose 268 H (60-115) mg/dL Random Glucose (60-115) mg/dL Lactic Acid (0.5-2.0) mmol/L Lactic Acid Fup @ 2Hr (0.5-2.0) mmol/L Lactic Acid Fup @ 4Hr 3.5 H* (0.5-2.0) mmol/L Magnesium (1.6-2.6) mg/dL Ferritin (20-250) ng/mL Total Bilirubin (0.0-1.0) mg/dL Direct Bilirubin (0.0-0.5) mg/dL Total Creatine Kinase (38-174) U/L Troponin I High Sens (<3.5-35.0) ng/L C-Reactive Protein (< or = 0.50) mg/dL Ur Specific [place] (1.005-1.025) 03/24/20 03/24/20 03/24/20 Range/Units 03:08 06:09 06:09 WBC 17.7 H (4.8-10.8) X10*3/uL Hct (42-52) % MCHC 30.4 L (31.0-36.0) g/dl Plt Count 63 L D (160-400) X10*3/uL Immature Gran % (Auto) (0.0-0.4) % Neut % (Auto) 84.8 H (45-73) % Lymph % (Auto) 6.9 L (20-40) % Lymph # (Auto) (1.2-4.9) X10*3/uL [place] # (Auto) 1.4 H (0.1-1.2) X10*3/uL Abs Immat Gran (auto) 0.07 H (0.00-0.03) X10*3/uL Absolute Neuts (auto) 15.0 H (2.0-8.3) X10*3/uL PT (10.8-13.0) SEC INR (0.9-1.1) Sodium 164 H* 162 H* (135-145) mmol/L Chloride (96-108) mmol/L Carbon Dioxide (22-29) mmol/L Anion Gap (12-20) BUN (9-16) mg/dL Creatinine (0.5-1.4) mg/dL POC Glucose (60-115) mg/dL Random Glucose (60-115) mg/dL Lactic Acid (0.5-2.0) mmol/L Lactic Acid Fup @ 2Hr (0.5-2.0) mmol/L Lactic Acid Fup @ 4Hr (0.5-2.0) mmol/L Magnesium (1.6-2.6) mg/dL Ferritin (20-250) ng/mL Total Bilirubin (0.0-1.0) mg/dL Direct Bilirubin (0.0-0.5) mg/dL Total Creatine Kinase (38-174) U/L Troponin I High Sens (<3.5-35.0) ng/L C-Reactive Protein (< or = 0.50) mg/dL Ur Specific [place] (1.005-1.025) 03/24/20 Range/Units 08:35 WBC (4.8-10.8) X10*3/uL Hct (42-52) % MCHC (31.0-36.0) g/dl Plt Count (160-400) X10*3/uL Immature Gran % (Auto) (0.0-0.4) % Neut % (Auto) (45-73) % Lymph % (Auto) (20-40) % Lymph # (Auto) (1.2-4.9) X10*3/uL [place] # (Auto) (0.1-1.2) X10*3/uL Abs Immat Gran (auto) (0.00-0.03) X10*3/uL Absolute Neuts (auto) (2.0-8.3) X10*3/uL PT (10.8-13.0) SEC INR (0.9-1.1) Sodium (135-145) mmol/L Chloride (96-108) mmol/L Carbon Dioxide (22-29) mmol/L Anion Gap (12-20) BUN (9-16) mg/dL Creatinine (0.5-1.4) mg/dL POC Glucose 259 H (60-115) mg/dL Random Glucose (60-115) mg/dL Lactic Acid (0.5-2.0) mmol/L Lactic Acid Fup @ 2Hr (0.5-2.0) mmol/L Lactic Acid Fup @ 4Hr (0.5-2.0) mmol/L Magnesium (1.6-2.6) mg/dL Ferritin (20-250) ng/mL Total Bilirubin (0.0-1.0) mg/dL Direct Bilirubin (0.0-0.5) mg/dL Total Creatine Kinase (38-174) U/L Troponin I High Sens (<3.5-35.0) ng/L C-Reactive Protein (< or = 0.50) mg/dL Ur Specific [place] (1.005-1.025) Short CBC 03/23/20 03/24/20 Range/Units 13:32 06:09 WBC 19.5 H 17.7 H (4.8-10.8) X10*3/uL Hgb 15.9 14.1 (14.0-18.0) g/dl Hct 52.4 H 46.4 (42-52) % Plt Count 90 L 63 L D (160-400) X10*3/uL BMP 03/23/20 03/23/20 03/23/20 13:32 18:04 21:26 Sodium 164 H* 164 H* 163 H* Potassium 4.0 4.4 Chloride 120 H 121 H Carbon Dioxide 27 30 H BUN 103 H* 102 H* Creatinine 3.53 H 3.30 H Calcium 9.5 8.8 D 03/24/20 03/24/20 03:08 06:09 Sodium 164 H* 162 H* Potassium Chloride Carbon Dioxide BUN Creatinine Calcium Cardiac Enzymes 03/23/20 Range/Units 13:32 Total Creatine Kinase 374 H (38-174) U/L Liver Function 03/23/20 Range/Units 13:32 Total Bilirubin 1.9 H (0.0-1.0) mg/dL Direct Bilirubin 1.1 H (0.0-0.5) mg/dL AST 26 (5-37) U/L ALT 36 (0-40) U/L Alkaline Phosphatase 77 (39-117) U/L Albumin 4.2 (3.5-5.0) g/dL Urine 03/23/20 Range/Units 13:56 Urine Color MICK Urine Appearance HAZY Urine pH 5.0 (5.0-8.0) Ur Specific [place] >= 1.030 H (1.005-1.025) Urine Protein TRACE (NEG-TRACE) MG/DL Urine Glucose (UA) NEG (NEG) MG/DL All other labs normal. <JR Yan - Last Filed: 03/24/20 11:00> Assessment and Plan (1) Gastric outlet obstruction: Problem details: 74 yo Syriac speaking male presented to ED yesterday evening for altered mental status and ABD pain. No infectious source found. NGT placed last night. On CT there is no overt sign of obstruction. He has significant signs of dehydration resulting in ARF, AMS and Hypernatremia. WBC downtrending slightly. <JR Yan - Last Filed: 03/24/20 11:00> Status: Acute <JR Yan - Last Filed: 03/24/20 11:00> Possible Gastric Ileus- NGT for gastric decompression. Further evaluation with EGD. Pain mgmt IVF PPI should be initiated if PUD is reason for obstruction. Medical problems will need to be addressed prior to any surgical intervention should further work-up suggest mechanical obstruction <JR Yan - Last Filed: 03/24/20 11:00> . General Surgery Attending - Analy Ureña M.D. Patient was evaluated and examined at the bedside with Mr. Jamarcus Alvarez PA-C. I confirm above findings and plan as documented. Pt presents with medical metabolic derangement with gastric distension likely due to gastric ileus v. gastric outlet obstruction although there is no overt indication of any obstructive pathology on CT scan. Will follow along with you. Aggressive medical intervention with effective NGT decompression required. Would confirm NGT is functional continuously. <Sabrina Ureña MD - Last Filed: 03/24/20 11:08>
--- NOTE | 2020-03-24 09:46 | PC.NURSE ---
pt's daughter jane ([phone]) [place] [facility] [place]'s status.
[2020-03-24] MEDS: Dextrose 5 % 1,000 ML 100 ML IVCONT (10:16)
--- NOTE | 2020-03-24 11:32 | PC.NURSE ---
NG tube advanced approx 10 cm- chest xray ordered to confirm placement.
[2020-03-24 12:30] VITALS: BP 112/65; PULSE 76; RESP 12; TEMP 36.6; O2SAT 98
[2020-03-24 12:38] LABS: Glucose, Whole Blood 162 mg/dL (60-115)
[2020-03-24 12:46] LABS: Anion Gap 18 (12-20); Blood Urea Nitrogen 103 mg/dL (9-16); Calcium 8.7 mg/dL (8.4-10.2); Carbon Dioxide 29 mmol/L (22-29); Chloride 121 mmol/L (96-108); Estimated Glomerular Filt Rate 21; Glucose Random 157 mg/dL (60-115); Potassium 3.5 mmol/l (3.3-5.1); Sodium 164 mmol/L (135-145)
--- NOTE | 2020-03-24 13:17 | PC.NURSE ---
pt received 300ml of D5 iv solution/fluids. d/c'd by dr. irvin.
[2020-03-24] MEDS: Sodium Chloride 0.45 % 1,000 ML 250 ML IVCONT ×3 (13:18→23:47)
--- NOTE | 2020-03-24 15:35 | P.PNIM_ITS ---
Subjective Subjective Date of Service: 03/24/20 Interval History: more awake, follows commands, somewhat restless Physical Exam Vital Signs: Vital Signs: Last Vital Signs Temp 97.8 F 03/24/20 12:30 Pulse 76 03/24/20 12:30 Resp 12 03/24/20 12:30 BP 112/65 03/24/20 12:30 Pulse Ox 98 03/24/20 12:30 Body Mass Index 29.2 Gen: more awake but still disoriented HEENT: sclera anicteric, very dry mucus membranes Neck: supple Lungs: clear to auscultation bilaterally Heart: regular rate and rhythm, no murmurs Abd: soft, non-tender, NG tube in place Ext: no edema Skin: warm/well-perfused Neuro: disoriented Psych: impaired insight Objective Data Current Medications Generic Name Dose Route Start Last Admin Trade Name Freq PRN Reason Stop Dose Admin Acetaminophen 650 mg 03/23/20 18:30 Acetaminophen Supp 650 Mg Supp.Rect ME Q6H PRN Pain, Mild (Pain Scale 1-3) Heparin Sodium (Porcine) 5,000 unit 03/23/20 18:30 03/24/20 06:18 Heparin Sodium,Porcine 5,000 Unit/Ml Vial SUBCUT 5,000 unit Q12H MARCO Administration Sodium Chloride 1,000 mls @ 250 mls/hr 03/24/20 13:00 03/24/20 13:18 IVCONT 250 mls/hr .Q4H MARCO Administration Insulin Human Lispro 0 unit 03/23/20 21:00 03/24/20 12:47 Insulin Lispro 100 Unit/Ml 3 Ml Vial SUBCUT 2 unit [facility] Administration Protocol Ondansetron HCl 4 mg 03/23/20 18:30 Ondansetron Hcl 4 Mg/2 Ml Vial IVPUSH Q8H PRN Nausea and Vomiting Sodium Chloride 3 ml 03/24/20 00:00 03/24/20 15:23 0.9 % Sodium Chloride Flush 3 Ml Syringe IVFLUSH 3 ml [facility] Administration Labs CBC & Chem 7: 03/24/20 06:09 03/24/20 11:49 Labs: Laboratory Results - last 24 hr 03/23/20 03/23/20 03/23/20 18:04 18:04 18:04 WBC RBC Hgb Hct MCV MCH MCHC RDW Plt Count Immature Gran % (Auto) Neut % (Auto) Lymph % (Auto) [place] % (Auto) Eos % (Auto) Baso % (Auto) Lymph # (Auto) [place] # (Auto) Eos # (Auto) Baso # (Auto) Abs Immat Gran (auto) Absolute Neuts (auto) Absolute Nucleated RBC Nucleated RBC % (auto) Smear Tech's Comments Sodium 164 H* Potassium 4.4 Chloride 121 H Carbon Dioxide 30 H Anion Gap 17 BUN 102 H* Creatinine 3.30 H Estim Creat Clear Calc 23.1 Estimated GFR 18 POC Glucose Random Glucose 278 H Lactic Acid Fup @ 2Hr 3.2 H* Lactic Acid Fup @ 4Hr Calcium 8.8 D Troponin I High Sens 103.7 H TSH 2.57 03/23/20 03/23/20 03/23/20 18:04 18:39 20:58 WBC RBC Hgb Hct MCV MCH MCHC RDW Plt Count Immature Gran % (Auto) Neut % (Auto) Lymph % (Auto) [place] % (Auto) Eos % (Auto) Baso % (Auto) Lymph # (Auto) [place] # (Auto) Eos # (Auto) Baso # (Auto) Abs Immat Gran (auto) Absolute Neuts (auto) Absolute Nucleated RBC Nucleated RBC % (auto) Smear Tech's Comments Sodium Potassium Chloride Carbon Dioxide Anion Gap BUN Creatinine Estim Creat Clear Calc Estimated GFR POC Glucose 220 H 268 H Random Glucose Lactic Acid Fup @ 2Hr Lactic Acid Fup @ 4Hr Calcium Troponin I High Sens Cancelled TSH 03/23/20 03/23/20 03/24/20 21:26 21:26 03:08 WBC RBC Hgb Hct MCV MCH MCHC RDW Plt Count Immature Gran % (Auto) Neut % (Auto) Lymph % (Auto) [place] % (Auto) Eos % (Auto) Baso % (Auto) Lymph # (Auto) [place] # (Auto) Eos # (Auto) Baso # (Auto) Abs Immat Gran (auto) Absolute Neuts (auto) Absolute Nucleated RBC Nucleated RBC % (auto) Smear Tech's Comments Sodium 163 H* 164 H* Potassium Chloride Carbon Dioxide Anion Gap BUN Creatinine Estim Creat Clear Calc Estimated GFR POC Glucose Random Glucose Lactic Acid Fup @ 2Hr Lactic Acid Fup @ 4Hr 3.5 H* Calcium Troponin I High Sens TSH 03/24/20 03/24/2003/24/21 06:09 06:09 08:35 WBC 17.7 H RBC 5.11 Hgb 14.1 Hct 46.4 MCV 90.8 MCH 27.6 MCHC 30.4 L RDW 14.2 Plt Count 63 L D Immature Gran % (Auto) 0.4 Neut % (Auto) 84.8 H Lymph % (Auto) 6.9 L [place] % (Auto) 7.6 Eos % (Auto) 0.1 Baso % (Auto) 0.2 Lymph # (Auto) 1.2 [place] # (Auto) 1.4 H Eos # (Auto) 0.0 Baso # (Auto) 0.0 Abs Immat Gran (auto) 0.07 H Absolute Neuts (auto) 15.0 H Absolute Nucleated RBC 0.000 Nucleated RBC % (auto) 0.0 Smear Tech's Comments VERIFIED Sodium 162 H* Potassium Chloride Carbon Dioxide Anion Gap BUN Creatinine Estim Creat Clear Calc Estimated GFR POC Glucose 259 H Random Glucose Lactic Acid Fup @ 2Hr Lactic Acid Fup @ 4Hr Calcium Troponin I High Sens TSH 03/24/20 03/24/20 03/24/20 11:49 11:49 12:34 WBC RBC Hgb Hct MCV MCH MCHC RDW Plt Count Immature Gran % (Auto) Neut % (Auto) Lymph % (Auto) [place] % (Auto) Eos % (Auto) Baso % (Auto) Lymph # (Auto) [place] # (Auto) Eos # (Auto) Baso # (Auto) Abs Immat Gran (auto) Absolute Neuts (auto) Absolute Nucleated RBC Nucleated RBC % (auto) Smear Tech's Comments Sodium Cancelled 164 H* Potassium 3.5 D Chloride 121 H Carbon Dioxide 29 Anion Gap 18 BUN 103 H* Creatinine 2.93 H Estim Creat Clear Calc 26.0 Estimated GFR 21 POC Glucose 162 H Random Glucose 157 H D Lactic Acid Fup @ 2Hr Lactic Acid Fup @ 4Hr Calcium 8.7 Troponin I High Sens TSH Assessment and Plan (1) Metabolic encephalopathy: Status: Acute (2) Gastric outlet obstruction: Status: Acute (3) Altered mental status: Status: Acute (4) Acute hypernatremia: Status: Acute (5) Acute renal failure: Status: Acute Assessment and Plan: 74yo M with HTN, HLD, DM2, hypothyroidism, and dementia brought in with worsening lethargy admitted for severe hyperNa with Na of 164, NIURKA, gastric outlet obstruction # hyperNa - has not changed. discussed with Dr Vásquez from Nephrology via telephone. will give 1/2 NS @ 250 mL/hr to replace volume in addition to free water. continue q4h Na checks # NIURKA - prerenal. correct volume and water deficits as above # lactic acidosis - secondary to dehydration; correct # leukocytosis - reactive? due to gastric outlet obstruction? no source of infection identified- monitor # thrombocytopenia - monitor, avoid heparin # gastric outlet obstruction - NG tube, Surgery following # metabolic encephalopathy - secondary to NIURKA/hyperNa superimposed on dementia # DM2 - correction-dose lispro # VTE ppx - SCDs
[2020-03-24 16:04] LABS: Sodium 162 mmol/L (135-145)
[2020-03-24 16:10] VITALS: BP 120/71; PULSE 76; RESP 18; TEMP 36.9
[2020-03-24 16:22] LABS: Lactic Acid 2.8 mmol/L (0.5-2.0)
[2020-03-24 17:39] LABS: Reflex Lactate? Lactic Acid Added
[2020-03-24 18:12] LABS: Glucose, Whole Blood 118 mg/dL (60-115)
[2020-03-24 21:54] LABS: Glucose, Whole Blood 113 mg/dL (60-115)
[2020-03-24 22:39] LABS: ~Lactic Acid-LAB USE ONLY 2.2 mmol/L (0.5-2.0)
[2020-03-25] VITALS (13 sets, daily range): BP systolic 105–152; BP diastolic 58–73; PULSE 61–77; RESP 13–20; TEMP 36.1–36.6; O2SAT 100–200; BMI 25.9
--- NOTE | 2020-03-25 | XR_ITS ---
EXAMINATION: XR CHEST CLINICAL INFORMATION: Nasogastric tube placement COMPARISON: Previous chest x-ray most recent from yesterday TECHNIQUE: Frontal view of the chest was obtained. FINDINGS: The cardiac and mediastinal contours are stable. There is a left subclavian dual chamber pacemaker in satisfactory position. There is a nasogastric tube with tip projecting over the proximal stomach. Hilar and mediastinal contours are unremarkable. The lungs are clear. There is no pleural effusion or pneumothorax. There are degenerative changes of the spine. XR/XR chest 1V IMPRESSION: Nasogastric tube projects over the proximal stomach. No evidence for acute disease in the chest.
[2020-03-25 00:14] LABS: Reflex Lactate? 2 Y
--- NOTE | 2020-03-25 00:34 | PC.NURSE ---
REPORT FROM ROGELIO AT 23:00.
--- NOTE | 2020-03-25 01:19 | PC.NURSE ---
pt awake and restless. 1000ml urine from stevens, 700ml brown gastric contents from suction.
[2020-03-25 02:53] LABS: Anion Gap 16 (12-20); Carbon Dioxide 29 mmol/L (22-29); Chloride 120 mmol/L (96-108); Potassium 4.1 mmol/l (3.3-5.1); Sodium 161 mmol/L (135-145)
[2020-03-25] MEDS: Sodium Chloride 0.45 % 1,000 ML 250 ML IVCONT ×2 (04:09→08:08)
[2020-03-25 04:21] LABS: Glucose, Whole Blood 112 mg/dL (60-115)
[2020-03-25] MEDS: 0.9 % Sodium Chloride Flush 3 ML SYRINGE IVFLUSH (08:17)
[2020-03-25 08:22] LABS: Glucose, Whole Blood 126 mg/dL (60-115)
--- NOTE | 2020-03-25 08:58 | PC.NURSE ---
Pt cleaned, repositioned. stevens cath patent/intact. Pt answering simple questions asked in english, denies pain, states feeling good NG to right nare on intermittent low suction, approx 50ml of brown contents, 1/2 NS at 250ml/hr running. POC 126. rectal temp 97.0 NSR on tele. V-Paced intermittently.
--- NOTE | 2020-03-25 09:45 | HO.PM.IMPN ---
Subjective Subjective Date of Service: 03/25/20 Interval History: seen and examined this AM in the ED alert and obeying commands, denies pain oriented to himself, but otherwise disoriented ROS unreliable Physical Exam Vital Signs: Vital Signs: Last Vital Signs Temp 97.0 F 03/25/20 09:01 Pulse 61 03/25/20 08:00 Resp 14 03/25/20 08:00 BP 110/60 03/25/20 08:00 Pulse Ox 200 H 03/25/20 04:08 Body Mass Index 29.2 Const: Other: General - awake and alert, NAD, unkempt HEENT - dry mucous membranes, NG in place Cardiovascular - s1s2 Lungs - dimished but no distress Abdomen - soft, nontender, no rebound or guarding Extremities - no edema bilaterally Neuro - awake and alert, moving all 4 limbs and obeying basic commands Objective Data Current Medications Generic Name Dose Route Start Last Admin Trade Name Freq PRN Reason Stop Dose Admin Acetaminophen 650 mg 03/23/20 18:30 Acetaminophen Supp 650 Mg Supp.Rect IA Q6H PRN Pain, Mild (Pain Scale 1-3) Sodium Chloride 1,000 mls @ 250 mls/hr 03/24/20 13:00 03/25/20 08:08 IVCONT 250 mls/hr .Q4H MARCO Administration Insulin Human Lispro 0 unit 03/23/20 21:00 03/25/20 08:14 Insulin Lispro 100 Unit/Ml 3 Ml Vial SUBCUT Not Given QIDACHS [facility] Protocol Ondansetron HCl 4 mg 03/23/20 18:30 Ondansetron Hcl 4 Mg/2 Ml Vial IVPUSH Q8H PRN Nausea and Vomiting Sodium Chloride 3 ml 03/24/20 00:00 03/25/20 08:17 0.9 % Sodium Chloride Flush 3 Ml Syringe IVFLUSH 3 ml QSHIFT [facility] Administration Labs CBC & Chem 7: 03/24/20 06:09 03/25/20 02:15 Microbiology Microbiology Results: Microbiology 03/23/20 13:46 Blood - Venous Blood Culture - Preliminary No growth after 24 hours. 03/23/20 13:31 Blood - Venous Blood Culture - Preliminary No growth after 24 hours. Assessment and Plan (1) Metabolic encephalopathy: Status: Acute Assessment and Plan: This is a 74 yo M with HTN, HLD, DM2, Hypothyroid, dementia who presents with increasing lethargy. He is admitted for metabolic encephalopathy due to severe hyperNa, NIURKA and gastric outlet obstuction. 1. HyperNa, NIURKA, severe dehydration leading to metabolic encephalopathy conintue with aggressive 1/2 NS AM labs pending clinically improving I/O Nephrology has been consulted 2. Leukocytosis likely reactive monitor for other signs of infection 3. Thrombocytopenia monitor, no evidence of bleeding at this time 4. Gastric outlet obstruction NG gen surg on board 5. DM Full Code DVT pptx, SCD
[2020-03-25 09:56] LABS: Hemoglobin 12.6 g/dl (14.0-18.0); Red Cell Distribution Width 14.4 % (11.0-16.0)
[2020-03-25 09:58] LABS: Hematocrit 42.4 % (42-52); Mean Corpuscular HGB Conc 29.7 g/dl (31.0-36.0); Mean Corpuscular Hemoglobin 27.7 pg (27.0-33.0); Mean Corpuscular Volume 93.2 fL (80-98); Red Blood Count 4.55 X10*6/uL (4.60-5.80); White Blood Count 12.3 X10*3/uL (4.8-10.8)
--- NOTE | 2020-03-25 10:16 | PC.NURSE ---
Per Madhuri (cardiology) plan for [facility] transfer today, [facility] to call with bed assgn.
[2020-03-25 10:23] LABS: Platelet Count 60 X10*3/uL (160-400)
[2020-03-25 10:24] LABS: PLT ABN DIST 1
[2020-03-25 11:05] LABS: Anion Gap 16 (12-20); Blood Urea Nitrogen 77 mg/dL (9-16); Calcium 7.9 mg/dL (8.4-10.2); Carbon Dioxide 22 mmol/L (22-29); Chloride 121 mmol/L (96-108); Creatinine Clr Calc Pharmacy 44.3; Estimated Glomerular Filt Rate 39; Glucose Random 162 mg/dL (60-115); Potassium 4.2 mmol/l (3.3-5.1); Sodium 155 mmol/L (135-145)
[2020-03-25] MEDS: Sodium Chloride 0.45 % 1,000 ML 150 ML IVCONT ×2 (12:10→19:13)
--- NOTE | 2020-03-25 12:30 | PC.NURSE ---
Pt more alert/awake, follows simple commands but remains confused. Pulled out NG tube, new on placed to same nare (right), contents draining. placement verified via auscultation, awaiting CXR. Soft restraints applied
[2020-03-25 12:57] LABS: Glucose, Whole Blood 112 mg/dL (60-115)
--- NOTE | 2020-03-25 15:06 | PC.NURSE ---
Spoke to daughter Delores (caregiver) who confirms pt is confused at baseline. States pt at time eats things and can be combative. Aware of plan for admission and surgical consult. contact [phone]
--- NOTE | 2020-03-25 15:16 | PM.PNGS ---
Subjective Subjective Date of Service: 03/25/20 Interval history: Patient confused, as per baseline according to nurse Does not appear to be in pain NG tube in place Physical Exam Vital Signs: Vital Signs: Last Vital Signs Temp 97.0 F 03/25/20 09:01 Pulse 76 03/25/20 14:30 Resp 16 03/25/20 14:30 BP 122/63 03/25/20 14:30 Pulse Ox 100 03/25/20 14:30 Body Mass Index 29.2 Chemistry 03/23/20 03/23/20 03/23/20 13:32 18:04 21:26 Sodium 164 H* 164 H* 163 H* Potassium 4.0 4.4 Carbon Dioxide 27 30 H BUN 103 H* 102 H* Creatinine 3.53 H 3.30 H Calcium 9.5 8.8 D 03/24/20 03/24/20 03/24/20 03:08 06:09 11:49 Sodium 164 H* 162 H* Cancelled Potassium Carbon Dioxide BUN Creatinine Calcium 03/24/20 03/24/20 03/25/20 11:49 15:33 02:15 Sodium 164 H* 162 H* 161 H* Potassium 3.5 D 4.1 Carbon Dioxide 29 29 BUN 103 H* Creatinine 2.93 H Calcium 8.7 03/25/20 03/25/20 09:24 10:37 Sodium Cancelled 155 H Potassium Cancelled 4.2 Carbon Dioxide Cancelled 22 BUN Cancelled 77 H Creatinine Cancelled 1.72 H Calcium Cancelled 7.9 L D Hematology 03/23/20 03/24/20 03/25/20 13:32 06:09 09:24 WBC 19.5 H 17.7 H 12.3 H Hgb 15.9 14.1 12.6 L Plt Count 90 L 63 L D 60 L Urinalysis 03/23/20 13:56 Urine Color MICK Urine Appearance HAZY Urine pH 5.0 Ur Specific Gravit y >= 1.030 H Urine Protein TRACE Urine Glucose (UA) NEG Urine Ketones 5 Urine Blood NEG Urine Nitrite NEG Ur Leukocyte Estela ase NEG Const: Other: Confused General: no acute distress Resp: Effort & Inspection: normal respiratory effort Cardio: Rhythm: regular rhythm GI: Other: Soft, nondistended, no guarding, no rebound, no palpable mass Progress Note: A&P Assessment and plan (1) Gastric distention: Status: Acute Assessment and Plan: May be secondary to gastric ileus from electrolyte imbalance Correct hypernatremia NG tube in for now to low intermittent suction Abdomen benign May need EGD down the line if extension persistent Has other acute multiple medical concerns at this time Will follow Fall Risk Details Current Medications: Current Medications Generic Name Dose Route Start Last Admin Trade Name Freq PRN Reason Stop Dose Admin Acetaminophen 650 mg 03/23/20 18:30 Acetaminophen Supp 650 Mg Supp.Rect [place] Q6H PRN Pain, Mild (Pain Scale 1-3) Sodium Chloride 1,000 mls @ 150 mls/hr 03/24/20 13:00 03/25/20 12:10 IVCONT 150 mls/hr .[id number] [facility] Administration Insulin Human Lispro 0 unit 03/23/20 21:00 03/25/20 12:21 Insulin Lispro 100 Unit/Ml 3 Ml Vial SUBCUT Not Given QIDACHS [facility] Protocol Ondansetron HCl 4 mg 03/23/20 18:30 Ondansetron Hcl 4 Mg/2 Ml Vial IVPUSH Q8H PRN Nausea and Vomiting Sodium Chloride 3 ml 03/24/20 00:00 03/25/20 08:17 0.9 % Sodium Chloride Flush 3 Ml Syringe IVFLUSH 3 ml QSHIFT [facility] Administration Time Spent With Patient Time: Total time spent is greater than 50% in coordination of care (as documented) at patient's floor/unit and/or counseling patient: Time with patient: 15 - 24 minutes
--- NOTE | 2020-03-25 15:35 | P.CONNP_ITS ---
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 Info obtained from EHR as PT is confused and unablke to privde info. Apparently feels unwell since Thankgiving. Marked metabolic abnl on adm and the prostate per Card seems problemtic., He denies CP/SOB but has noted wt gain and unruly swelling Review of Systems Review of Systems Constitutional: +fatigue Neuro: + Weakness History limited due to patient's AMS Yes Unobtainable due to mental status Reports confusion Psychiatric: Reports confusion [facility] Past Medical History Medical History (Updated 03/25/20 @ 15:17 by Kevin Olguin MD) Asthma Dementia Diabetes mellitus, type 2 Gastric distention H/O cardiac pacemaker History of alcohol abuse HLD (hyperlipidemia) Hypertension Hypothyroidism Functional capacity: uses cane/walker Family History Pertinent family history: + for DM, HTN Family history: reviewed and not pertinent Surgical History Surgical History (Updated 03/23/20 @ 18:50 by JR Aponte) H/O knee surgery Social History Social History (Updated 03/23/20 @ 18:51 by JR Aponte) Household Members: Family Alcohol intake: former Smoking Status: Never smoker Use of substances other than those prescribed or required for medical reasons: No Advance Directives: No Advance Directives Information Provided: No Meds Allergies Allergy/AdvReac Type Severity Reaction Status Date / Time No Known Allergies Allergy Unverified 11/30/19 15:53 [No Known Allergies*] Home Medications Medication Instructions Recorded Confirmed Type citalopram 1 tab PO DAILY 03/23/20 03/23/20 History donepezil 1 tab PO BEDTIME 03/23/20 03/23/20 History folic acid 1 tab PO DAILY 03/23/20 03/23/20 History memantine 1 tab PO BID 03/23/20 03/23/20 History metoprolol succinate 1 tab PO DAILY 03/23/20 03/23/20 History multivitamin with folic acid 1 tab PO DAILY 03/23/20 03/23/20 History [Tab-A-Gordon] quetiapine 1 tab PO DAILY 03/23/20 03/23/20 History Physical Exam Vital Signs: Last Vital Signs Temp 97.0 F 03/25/20 09:01 Pulse 76 03/25/20 14:30 Resp 16 03/25/20 14:30 BP 122/63 03/25/20 14:30 Pulse Ox 100 03/25/20 14:30 Body Mass Index 29.2 Const Other: Confused General: confusion Orientation/consciousness: confusion HENMT Other: dry mucous membranes Head: Yes normal to inspection, Yes normocephalic and Yes atraumatic Ears: hearing grossly normal bilaterally General nose exam: Normal external nose present Face and sinus: Yes normal facial exam Mouth: mucous membranes dry Eyes General: appearance normal, both eyes and all related structures Sclerae: sclerae normal Pupils: Equal, round and reactive pupils present Neck Neck: Yes normal visual inspection Chest Chest palpation & inspection: normal inspection of the chest Resp Effort & Inspection: normal respiratory effort and no respiratory distress Auscultation: clear to auscultation bilaterally and diminished lung sounds (Bibasilar) Cardio Other: Confused Rate: regular rate Rhythm: regular rhythm Heart sounds: S1 normal heart sound present and S2 normal heart sound present GI Other: Soft, nondistended, no guarding, no rebound, no palpable mass Inspection: Yes normal to inspection Palpation (GI): Soft to palpation, nontender, no guarding and not rigid Skin General skin exam: no rashes or lesions noted Rashes: no rashes Wounds: no wounds Neuro Other: Opens eyes to verbal/painful stimuli. Does not answer questions. Sleeping/snoring during exam General: confusion Cranial nerves: Yes CN's II-XII intact bilaterally, Yes Equal, round and r eactive pupils present and Yes Bilaterally intact EOM present Gait exam (Neuro): Normal gait present Extrem Other: No LE edema General: Yes normal to inspection and Yes no calf tenderness Results Lab Results Result Diagrams: 03/25/20 09:24 03/25/20 10:37 Lab results: Chemistry 03/23/20 03/23/20 03/23/20 13:32 18:04 21:26 Sodium 164 H* 164 H* 163 H* Potassium 4.0 4.4 Carbon Dioxide 27 30 H BUN 103 H* 102 H* Creatinine 3.53 H 3.30 H Calcium 9.5 8.8 D 03/24/20 03/24/20 03/24/20 03:08 06:09 11:49 Sodium 164 H* 162 H* Cancelled Potassium Carbon Dioxide BUN Creatinine Calcium 03/24/20 03/24/20 03/25/20 11:49 15:33 02:15 Sodium 164 H* 162 H* 161 H* Potassium 3.5 D 4.1 Carbon Dioxide 29 29 BUN 103 H* Creatinine 2.93 H Calcium 8.7 03/25/20 03/25/20 09:24 10:37 Sodium Cancelled 155 H Potassium Cancelled 4.2 Carbon Dioxide Cancelled 22 BUN Cancelled 77 H Creatinine Cancelled 1.72 H Calcium Cancelled 7.9 L D Hematology 03/23/20 03/24/20 03/25/20 13:32 06:09 09:24 WBC 19.5 H 17.7 H 12.3 H Hgb 15.9 14.1 12.6 L Plt Count 90 L 63 L D 60 L Urinalysis 03/23/20 13:56 Urine Color MICK Urine Appearance HAZY Urine pH 5.0 Ur Specific [place] >= 1.030 H Urine Protein TRACE Urine Glucose (UA) NEG Urine Ketones 5 Urine Blood NEG Urine Nitrite NEG Ur Leukocyte Esterase NEG Assessment and Plan (1) Gastric distention: Status: Acute 1. NIURKA: c/w dehtdration and renal hypoperfusion 2. HyperNa: incr FW loss and poor po intake REC: cont IVF resusuitation..corret NIURKA and hyperNa will follow clsolet with med team; no indication for HD at thois time and hopefully we can avoid as with IV volume replacemnet
[2020-03-25 15:42] LABS: Anion Gap 15 (12-20); Blood Urea Nitrogen 71 mg/dL (9-16); Calcium 7.8 mg/dL (8.4-10.2); Carbon Dioxide 25 mmol/L (22-29); Chloride 119 mmol/L (96-108); Creatinine Clr Calc Pharmacy 46.8; Estimated Glomerular Filt Rate 42; Glucose Random 154 mg/dL (60-115); Potassium 3.8 mmol/l (3.3-5.1); Sodium 155 mmol/L (135-145)
--- NOTE | 2020-03-25 15:44 | MHC.SLORD ---
Order for bedside dysphagia evaluation received 03/23/20. PHOTOCOPY OPERATOR corresponded with RN and MD. Per MD, evaluation is not indicated today. Plan for dysphagia trials tomorrow morning if appropriate. Name: Florentin Morris Date of : 1945 Age: 74 Date of Registration: 03/23/20 Speech Language Pathology Order Status:
[2020-03-25 16:58] LABS: Glucose, Whole Blood 120 mg/dL (60-115)
--- NOTE | 2020-03-25 20:02 | PC.NURSE ---
[facility] unable to take report at this time.
--- NOTE | 2020-03-25 20:44 | PC.NURSE ---
All medications not given in the MAR throughout the day prior to this RN assuming care of pt, documented against by this RN as they remained pending in MAY.
--- NOTE | 2020-03-25 20:54 | PC.NURSE ---
Report given to [facility]. Plan for labs and transfer to [facility].
[2020-03-25 21:02] LABS: Glucose, Whole Blood 99 mg/dL (60-115)
[2020-03-25 21:24] LABS: Basophils Percent Auto 0.2 % (0-2); MANUAL DIFF FLAG SCAN; Red Blood Count 3.27 X10*6/uL (4.60-5.80); Red Cell Distribution Width 13.8 % (11.0-16.0); SCAN SMEAR FLAG 1
[2020-03-25 21:25] LABS: Eosinophils Absolute Auto 0.1 X10*3/uL (0.0-0.4); Eosinophils Percent Auto 1.3 % (0-4); Hematocrit 30.2 % (42-52); Hemoglobin 9.1 g/dl (14.0-18.0); Imm Gran Abs Auto 0.04 X10*3/uL (0.00-0.03); Imm Gran Pct Auto 0.5 % (0.0-0.4); Lymphocytes Percent Auto 12.6 % (20-40); Mean Corpuscular HGB Conc 30.1 g/dl (31.0-36.0); Mean Corpuscular Hemoglobin 27.8 pg (27.0-33.0); Mean Corpuscular Volume 92.4 fL (80-98); Monocytes Absolute Auto 0.8 X10*3/uL (0.1-1.2); Monocytes Percent Auto 9.3 % (2-11); Neutrophils Absolute Auto 6.2 X10*3/uL (2.0-8.3); Neutrophils Percent Auto 76.1 % (45-73); White Blood Count 8.2 X10*3/uL (4.8-10.8)
[2020-03-25 21:54] LABS: Anion Gap 9 (12-20); Blood Urea Nitrogen 43 mg/dL (9-16); Carbon Dioxide 20 mmol/L (22-29); Chloride 105 mmol/L (96-108); Creatinine Clr Calc Pharmacy 97.8; Estimated Glomerular Filt Rate > 60; Glucose Random 89 mg/dL (60-115); Sodium 132 mmol/L (135-145)
[2020-03-25 21:57] LABS: PLT ABN DIST 1; Platelet Count 48 X10*3/uL (160-400)
[2020-03-25 21:59] LABS: SLIDE REVIEW VERIFIED
[2020-03-25 22:03] LABS: Calcium 5.3 mg/dL (8.4-10.2); Potassium 2.4 mmol/l (3.3-5.1)
[2020-03-25 23:12] LABS: Alanine Aminotransferase 26 U/L (0-40); Albumin Level 3.2 g/dL (3.5-5.0); Alkaline Phosphatase 61 U/L (39-117); Anion Gap 14 (12-20); Aspartate Amino Transferase 26 U/L (5-37); Bilirubin Total 1.5 mg/dL (0.0-1.0); Blood Urea Nitrogen 59 mg/dL (9-16); Calcium 7.9 mg/dL (8.4-10.2); Carbon Dioxide 29 mmol/L (22-29); Chloride 117 mmol/L (96-108); Creatinine Clr Calc Pharmacy 49.3; Estimated Glomerular Filt Rate 50; Glucose Random 127 mg/dL (60-115); Potassium 3.5 mmol/l (3.3-5.1); Sodium 156 mmol/L (135-145); Total Protein 5.8 g/dL (6.5-8.0)
[2020-03-26] MEDS: Sodium Chloride 0.45 % 1,000 ML 150 ML IVCONT ×2 (01:58→08:32)
[2020-03-26 03:26] VITALS: BP 93/54; PULSE 74; TEMP 37.1
[2020-03-26 07:16] LABS: Anion Gap 17 (12-20); Blood Urea Nitrogen 54 mg/dL (9-16); Calcium 7.9 mg/dL (8.4-10.2); Carbon Dioxide 21 mmol/L (22-29); Chloride 119 mmol/L (96-108); Creatinine Clr Calc Pharmacy 56.5; Estimated Glomerular Filt Rate 58; Glucose Random 110 mg/dL (60-115); Potassium 3.8 mmol/l (3.3-5.1); Sodium 153 mmol/L (135-145)
[2020-03-26 07:23] LABS: Hematocrit 40.8 % (42-52); Hemoglobin 12.2 g/dl (14.0-18.0); Mean Corpuscular HGB Conc 29.9 g/dl (31.0-36.0); Mean Corpuscular Hemoglobin 27.6 pg (27.0-33.0); Mean Corpuscular Volume 92.3 fL (80-98); Red Blood Count 4.42 X10*6/uL (4.60-5.80); Red Cell Distribution Width 13.7 % (11.0-16.0); White Blood Count 9.9 X10*3/uL (4.8-10.8)
[2020-03-26 07:35] LABS: PLT ABN DIST 1
[2020-03-26 08:00] VITALS: BP 137/73; PULSE 73; RESP 16; TEMP 36.3; O2SAT 97
[2020-03-26 08:02] LABS: Platelet Count 65 X10*3/uL (160-400)
[2020-03-26 09:24] LABS: Glucose, Whole Blood 111 mg/dL (60-115)
--- NOTE | 2020-03-26 10:13 | MHC.SLORD ---
[employer] M[employer] FILLER spoke to RN and MD. Per MD, pt not appropriate for PO intake at this time. Order for bedside swallow evaluation to be cancelled per MD. Name: Florentin Morris Date of : 1945 Age: 74 Date of Registration: 03/23/20 Speech Language Pathology Order Status:
[2020-03-26 11:23] LABS: Glucose, Whole Blood 102 mg/dL (60-115)
[2020-03-26 12:00] VITALS: BP 153/72; PULSE 73; RESP 17; TEMP 36.6; O2SAT 97
[2020-03-26 12:34] LABS: Hematocrit 37.3 % (42-52)
[2020-03-26 12:36] LABS: Hemoglobin 11.3 g/dl (14.0-18.0)
--- NOTE | 2020-03-26 13:02 | P.PNIM_ITS ---
Subjective Subjective Date of Service: 03/26/20 Interval History: seen and examined this AM confused ROS unreliable Physical Exam Vital Signs: Vital Signs: Last Vital Signs Temp 97.8 F 03/26/20 12:00 Pulse 73 03/26/20 12:00 Resp 17 03/26/20 12:00 BP 153/72 H 03/26/20 12:00 Pulse Ox 97 03/26/20 12:00 Body Mass Index 25.9 Const: Other: General - awake and alert, NAD, unkempt HEENT - dry mucous membranes, NG in place - dark colored/thick drainage Cardiovascular - s1s2 Lungs - dimished but no distress Abdomen - soft, nontender, no rebound or guarding Extremities - no edema bilaterally Neuro - awake and alert, disoriented but cooperative this AM Objective Data Current Medications Generic Name Dose Route Start Last Admin Trade Name Freq PRN Reason Stop Dose Admin Acetaminophen 650 mg 03/23/20 18:30 Acetaminophen Supp 650 Mg Supp.Rect ID Q6H PRN Pain, Mild (Pain Scale 1-3) Dextrose 1,000 mls @ 100 mls/hr 03/26/20 13:15 D5w IVCONT .Q10H [facility] Insulin Human Lispro 0 unit 03/23/20 21:00 03/26/20 12:11 Insulin Lispro 100 Unit/Ml 3 Ml Vial SUBCUT Not Given QIDACHS [facility] Protocol Ondansetron HCl 4 mg 03/23/20 18:30 Ondansetron Hcl 4 Mg/2 Ml Vial IVPUSH Q8H PRN Nausea and Vomiting Pantoprazole Sodium 40 mg 03/26/20 16:30 Pantoprazole Sodium 40 Mg/10 Ml Vial IVPUSH BID@0630,1630 [facility] Sodium Chloride 3 ml 03/24/20 00:00 03/26/20 08:28 0.9 % Sodium Chloride Flush 3 Ml Syringe IVFLUSH Not Given QSHIFT [facility] Labs CBC & Chem 7: 03/26/20 12:28 03/26/20 05:27 Microbiology Microbiology Results: Microbiology 03/23/20 13:46 Blood - Venous Blood Culture - Preliminary No growth after 48 hours. 03/23/20 13:31 Blood - Venous Blood Culture - Preliminary No growth after 48 hours. Assessment and Plan (1) Metabolic encephalopathy: Status: Acute Assessment and Plan: This is a 74 yo M with HTN, HLD, DM2, Hypothyroid, dementia who presents with increasing lethargy. He is admitted for metabolic encephalopathy due to severe hyperNa, NIURKA and gastric outlet obstruction. 1. HyperNa, NIURKA, severe dehydration leading to metabolic encephalopathy improving change IVF to D5W, recheck SNa this afternoon (SNa 132 from 03/25/2020 @ 2108 is suspected ERROR -- checked shortly there after showed SNa 156) 2. Question UGI NG showing ? coffee grounds NPO and IV PPI GI consult 3. Leukocytosis likely reactive monitor for other signs of infection 4. Thrombocytopenia unclear cause monitor, no evidence of bleeding at this time 4. Gastric outlet obstruction Gen Surg on board 5. DM POC q6h -- has not required coveraged Full Code DVT pptx, SCD
--- NOTE | 2020-03-26 13:04 | P.CNGI_ITS ---
History of Present Illness Data of Consult Service Date: 03/26/20 Requesting physician: Cornelius Daily Primary Care Provider: José Antonio Ying MD HPI Reason for consult: gastric outlet obstruction (GOO) 74 year old male with a history of hypertension, dyslipidemia, diabetes, hypothyroidism, dementia who I am seeing for assessment for suspected GOO. Hx from notes as patient unable to provide hx due to confusion even with break out man. He was admitted with AMS and lethargy, but declining steadily over last few months in terms of his mental health. Brain CT neg for acute abnormalities. Lab work was significant for leukocytosis of 19.5. BUN/creatinine were elevated at 103/3.53, Sodium of 164, lactic acid 2.4. No source of infection was identified. Urinalysis, chest CT were unrem arkable. CT scan of the abdomen demonstrated concern for gastric outlet obstruction. Gen surg evaluated and recommended EGD and NGT placement, also seeing renal team to help with hypernatremia management. Na has been coming down gradually now around 153. Also of note plts low. Coffee ground material coming out of NGT as seen in cannister but HGB been fairly stable Review of Systems Review of Systems: Yes Unobtainable due to mental status Neurologic: Reports confusion Psychiatric: Psychiatric: Reports confusion PMF[facility] Past Medical History Medical History Asthma Dementia Diabetes mellitus, type 2 Gastric distention H/O cardiac pacemaker History of alcohol abuse HLD (hyperlipidemia) Hypertension Hypothyroidism Functional capacity: uses cane/walker Family History Pertinent family history: + for DM, HTN Family history: reviewed and not pertinent Surgical History Surgical History H/O knee surgery Social History Social History Household Members: Family Housing: House Alcohol intake: former Smoking Status: Never smoker Use of substances other than those prescribed or required for medical reasons: Unknown Advance Directives: No Advance Directives Information Provided: No Do you have thoughts of harming others: None Do you have a plan to hurt others: No Plan Recently lost weight without trying: Unsure service: No Current occupational status: retired Meds Allergies Allergy/AdvReac Type Severity Reaction Status Date / Time No Known Allergies Allergy Unverified 11/30/19 15:53 [No Known Allergies*] Home Medications Medication Instructions Recorded Confirmed Type citalopram 1 tab PO DAILY 03/23/20 03/23/20 History donepezil 1 tab PO BEDTIME 03/23/20 03/23/20 History folic acid 1 tab PO DAILY 03/23/20 03/23/20 History memantine 1 tab PO BID 03/23/20 03/23/20 History metoprolol succinate 1 tab PO DAILY 03/23/20 03/23/20 History multivitamin with folic acid 1 tab PO DAILY 03/23/20 03/23/20 History [Tab-A-Gordon] quetiapine 1 tab PO DAILY 03/23/20 03/23/20 History Physical Exam Vital Signs: Vital Signs: Last Vital Signs Temp 97.8 F 03/26/20 12:00 Pulse 73 03/26/20 12:00 Resp 17 03/26/20 12:00 BP 153/72 H 03/26/20 12:00 Pulse Ox 97 03/26/20 12:00 Body Mass Index 25.9 Const: Other: confused, General: no acute distress, confusion and lethargic Orientation/consciousness: confusion and lethargic HENMT: Other: dry mucous membranes Head: Yes normal to inspection, Yes normocephalic and Yes atraumatic Ears: hearing grossly normal bilaterally General nose exam: Normal external nose present Face and sinus: Yes normal facial exam Mouth: mucous membranes dry Eyes: General: appearance normal, both eyes and all related structures Sc lerae: sclerae normal Pupils: Equal, round and reactive pupils present Neck: Neck: Yes normal visual inspection Chest: Chest palpation & inspection: normal inspection of the chest Resp: Effort & Inspection: normal respiratory effort and no respiratory distress Auscultation: clear to auscultation bilaterally and diminished lung sounds (Bibasilar) Cardio: Rate: regular rate Rhythm: regular rhythm Heart sounds: S1 normal heart sound present and S2 normal heart sound present GI: Other: soft, nondistended, no guarding Inspection: Yes normal to inspection Palpation (GI): Soft to palpation, nontender, no guarding and not rigid Skin: General skin exam: no rashes or lesions noted Rashes: no rashes Wounds: no wounds Neuro: Other: awake General: confusion Cranial nerves: Yes CN's II-XII intact bilaterally, Yes Equal, round and reactive pupils present and Yes Bilaterally intact EOM present Gait exam (Neuro): Normal gait present Extrem: Other: No LE edema General: Yes normal to inspection and Yes no calf tenderness Results Labs CBC & Chem 7: 03/26/20 18:43 03/26/20 05:27 Labs: Short CBC 03/25/20 03/26/20 03/26/20 Range/Units 21:08 05:27 12:28 WBC 8.2 9.9 (4.8-10.8) X10*3/uL Hgb 9.1 L D 12.2 L D 11.3 L (14.0-18.0) g/dl Hct 30.2 L D 40.8 L D 37.3 L (42-52) % Plt Count 48 L 65 L D (160-400) X10*3/uL BMP 03/25/20 03/25/20 03/25/20 15:00 21:08 22:15 Sodium 155 H 132 L 156 H Potassium 3.8 2.4 L* D 3.5 D Chloride 119 H 105 117 H Carbon Dioxide 25 20 L 29 BUN 71 H 43 H 59 H Creatinine 1.63 H 0.78 1.40 Calcium 7.8 L 5.3 L* D 7.9 L D 03/26/20 05:27 Sodium 153 H Potassium 3.8 Chloride 119 H Carbon Dioxide 21 L BUN 54 H Creatinine 1.22 Calcium 7.9 L Liver Function 03/25/20 Range/Units 22:15 Total Bilirubin 1.5 H (0.0-1.0) mg/dL AST 26 (5-37) U/L ALT 26 (0-40) U/L Alkaline Phosphatase 61 D (39-117) U/L Albumin 3.2 L D (3.5-5.0) g/dL Microbiology Microbiology Results: Microbiology 03/23/20 13:46 Blood - Venous Blood Culture - Preliminary No growth after 48 hours. 03/23/20 13:31 Blood - Venous Blood Culture - Preliminary No growth after [address] scan - abdomen: Attestation: I personally reviewed and interpreted this imaging study as follows: My impression: gastric air/fluid level, distended stomach Assessment and Plan (1) Gastric distention: Status: Acute (2) Gastric outlet obstruction: Status: Acute (3) Coffee ground emesis: Status: Acute 1/ Gastric distention, could be from gastroparesis given his hx of DM and hypothyroidism but need to r/o GOO from stomach mass or lesion, right now hypern atremia needs to be corrected first. 2/ Coffee ground aspirate, likely traumatic injury to mucosa from NGT insertion, and low plts, which may be due to nutritional defc e.g low folate, b12, vit c etc, or paraneoplastic effect, ITP, LDh nml making TTP less likely PLAN: 1/ correct Na as doing, 2/ EGD once lytes corrected, meantime can use PPI IV, 3/ check HIV, Hep serologies and nutrient levels zinc, vitamin B1,B2, B6, B12, C, iron studies 4/ might have to consider parenteral nutrition if unable to take PO, consider discussing goals of care with family
--- NOTE | 2020-03-26 13:23 | MHC.CM.PN ---
CM attempted to met with patient with motor vehicle parts interpreter, not able to answer questions r/t dementia. CM spoke with dtr/HCP Delores [phone] by phone who reports patient lives with his and does need assistance with ADL's and IADL's which is currently provide by and family. Patient does have a HCP, copy requested. Discharge plan is home no services. Instructed Delores will need to call PCP for referral to [facility]. Dtr Delores will provide transportation. IMM addressed. CM will continue to follow patient for discharge needs.
[2020-03-26] MEDS: Dextrose 5 % 1,000 ML 100 ML IVCONT (13:41)
--- NOTE | 2020-03-26 14:07 | PC.NURSE ---
EMPTIED NG TUBE 300ML OF DARK BROWN DRAINAGE, CHANGED OUT ALL TUBING AND CANISTER
[2020-03-26 16:00] VITALS: BP 138/67; PULSE 73; RESP 17; TEMP 36.5; O2SAT 97
[2020-03-26] MEDS: Pantoprazole Sodium 40 MG/10 ML VIAL IVPUSH (16:35)
--- NOTE | 2020-03-26 16:35 | P.PNGS_ITS ---
Subjective Subjective Date of Service: 03/26/20 Interval history: no events reported remains confused as per nurse - 300cc NGT output from 7-3 - coffee ground reported Physical Exam Vital Signs: Vital Signs: Last Vital Signs Temp 97.7 F 03/26/20 16:00 Pulse 73 03/26/20 16:00 Resp 17 03/26/20 16:00 BP 138/67 03/26/20 16:00 Pulse Ox 97 03/26/20 16:00 Body Mass Index 25.9 Chemistry 03/23/20 03/23/20 03/24/20 18:04 21:26 03:08 Sodium 164 H* 163 H* 164 H* Potassium 4.4 Carbon Dioxide 30 H BUN 102 H* Creatinine 3.30 H Calcium 8.8 D 03/24/20 03/24/20 03/24/20 06:09 11:49 11:49 Sodium 162 H* Cancelled 164 H* Potassium 3.5 D Carbon Dioxide 29 BUN 103 H* Creatinine 2.93 H Calcium 8.7 03/24/20 03/25/20 03/25/20 15:33 02:15 09:24 Sodium 162 H* 161 H* Cancelled Potassium 4.1 Cancelled Carbon Dioxide 29 Cancelled BUN Cancelled Creatinine Cancelled Calcium Cancelled 03/25/20 03/25/20 03/25/20 10:37 15:00 21:08 Sodium 155 H 155 H 132 L Potassium 4.2 3.8 2.4 L* D Carbon Dioxide 22 25 20 L BUN 77 H 71 H 43 H Creatinine 1.72 H 1.63 H 0.78 Calcium 7.9 L D 7.8 L 5.3 L* D 03/25/20 03/26/20 22:15 05:27 Sodium 156 H 153 H Potassium 3.5 D 3.8 Carbon Dioxide 29 21 L BUN 59 H 54 H Creatinine 1.40 1.22 Calcium 7.9 L D 7.9 L Hematology 03/24/20 03/25/20 03/25/20 06:09 09:24 21:08 WBC 17.7 H 12.3 H 8.2 Hgb 14.1 12.6 L 9.1 L D Plt Count 63 L D 60 L 48 L 03/26/20 03/26/20 05:27 12:28 WBC 9.9 Hgb 12.2 L D 11.3 L Plt Count 65 L D Const: Other: confused, not communicating well GI: Other: soft, nondistended, no guarding Progress Note: A&P Assessment and plan (1) Gastric distention: Status: Acute Assessment and Plan: likely from gastric ileus rather than outlet obstruction NGT not much abd soft, not distended GI consult for coffee grounds if NGT comes out, no need to replace correct electrolytes exam benign Fall Risk Details Current Medications: Current Medications Generic Name Dose Route Start Last Admin Trade Name Freq PRN Reason Stop Dose Admin Acetaminophen 650 mg 03/23/20 18:30 Acetaminophen Supp 650 Mg Supp.Rect [place] Q6H PRN Pain, Mild (Pain Scale 1-3) Dextrose 1,000 mls @ 100 mls/hr 03/26/20 13:15 03/26/20 13:41 D5w IVCONT 100 mls/hr .Q10H [facility] Administration Insulin Human Lispro 0 unit 03/23/20 21:00 03/26/20 12:11 Insulin Lispro 100 Unit/Ml 3 Ml Vial SUBCUT Not Given QIDACHS [facility] Protocol Ondansetron HCl 4 mg 03/23/20 18:30 Ondansetron Hcl 4 Mg/2 Ml Vial IVPUSH Q8H PRN Nausea and Vomiting Pantoprazole Sodium 40 mg 03/26/20 16:30 Pantoprazole Sodium 40 Mg/10 Ml Vial IVPUSH BID@0630,1630 [facility] Sodium Chloride 3 ml 03/24/20 00:00 03/26/20 15:02 0.9 % Sodium Chloride Flush 3 Ml Syringe IVFLUSH Not Given QSHIFT [facility] Time Spent With Patient Time: Total time spent is greater than 50% in coordination of care (as documented) at patient's floor/unit and/or counseling patient: Time with patient: 15 - 24 minutes
[2020-03-26 16:52] LABS: Glucose, Whole Blood 128 mg/dL (60-115)
[2020-03-26 19:08] LABS: Hemoglobin 11.5 g/dl (14.0-18.0)
[2020-03-26 19:09] LABS: Hematocrit 37.3 % (42-52)
[2020-03-26 19:51] VITALS: BP 138/65; PULSE 72; RESP 18
[2020-03-26 20:41] LABS: Glucose, Whole Blood 141 mg/dL (60-115)
[2020-03-26 23:35] VITALS: BP 134/62; PULSE 73; RESP 18
--- NOTE | 2020-03-27 | CT_ITS ---
EXAMINATION: CT HEAD WITHOUT CONTRAST CLINICAL INFORMATION: Lethargic with low platelets. Rule out intracranial hemorrhage. COMPARISON: March 23, 2020 TECHNIQUE: Contiguous axial imaging was performed from the skull base to vertex without intravenous administration of contrast. This CT examination was performed using dose optimization techniques as appropriate, variously including the following: *Automated exposure control *Adjustment of mA and/or kV according to patient size (this includes techniques or standardized protocols for targeted exams where dose is matched to indication/reason for exam; i.e. extremities or head) *Use of iterative reconstruction technique DLP: 1115 mGy-cm FINDINGS: There is no evidence of acute intracranial hemorrhage or territorial infarction. No abnormal mass effect or midline shift is seen. [place] to white matter differentiation is well preserved. No extra-axial fluid collections are identified. There is some periventricular white matter low density consistent with microangiopathy. The ventricles are normal in size. There is no abnormal attenuation within the brain parenchyma. The osseous structures and soft tissues are normal. The mastoid air cells and visualized portions of the paranasal sinuses are well aerated. CT/CT head/brain wo con IMPRESSION: No acute intracranial pathology. Findings consistent with microangiopathy.
[2020-03-27] MEDS: Dextrose 5 % 1,000 ML 100 ML IVCONT ×2 (00:26→11:19)
[2020-03-27 03:29] VITALS: BP 131/64; PULSE 67; RESP 20; O2SAT 97
[2020-03-27 06:58] LABS: Hemoglobin 10.7 g/dl (14.0-18.0)
[2020-03-27 06:59] LABS: Hematocrit 34.3 % (42-52); Mean Corpuscular HGB Conc 31.2 g/dl (31.0-36.0); Mean Corpuscular Volume 89.8 fL (80-98); Red Blood Count 3.82 X10*6/uL (4.60-5.80); Red Cell Distribution Width 13.2 % (11.0-16.0)
[2020-03-27 07:19] LABS: Anion Gap 11 (12-20); Blood Urea Nitrogen 29 mg/dL (9-16); Calcium 7.5 mg/dL (8.4-10.2); Carbon Dioxide 26 mmol/L (22-29); Chloride 112 mmol/L (96-108); Creatinine Clr Calc Pharmacy 67.6; Estimated Glomerular Filt Rate > 60; Glucose Random 222 mg/dL (60-115); Potassium 3.1 mmol/l (3.3-5.1); Sodium 146 mmol/L (135-145)
[2020-03-27 07:21] LABS: PLT ABN DIST 1; Platelet Count 68 X10*3/uL (160-400)
[2020-03-27 07:38] LABS: HBc Num1 0.45 S/CO (0.00-0.79); HIV AB/AG Nonreactive (Nonreactive); HIV Num 1 0.14 S/CO (0.00-0.99); Hepatitis B Core Antibody Nonreactive (Nonreactive); ~Hepatitis B Surface Antibody NONREACTIVE (Nonreactive); ~Hepatitis C Antibody Nonreactive (Nonreactive)
[2020-03-27 07:46] LABS: Glucose, Whole Blood 206 mg/dL (60-115)
[2020-03-27 07:55] LABS: HBsAGNum1 0.25 S/CO (0.00-0.99); Hepatitis A Antibody IgM 0.18 Index (0-0.79); Hepatitis B Surface Antigen Negative (Negative); ~Hepatitis A Antibody IgM Nonreactive (Nonreactive)
[2020-03-27 08:00] VITALS: BP 113/55; PULSE 60; RESP 18; O2SAT 97
[2020-03-27 08:08] LABS: Folate 11.8 ng/mL (> or = 4.0); Vitamin B12 241 pg/mL (200-900)
[2020-03-27 08:09] LABS: Syphilis Screen Nonreactive (Nonreactive)
[2020-03-27] MEDS: Pantoprazole Sodium 40 MG/10 ML VIAL IVPUSH ×2 (08:14→17:23)
[2020-03-27] MEDS: Insulin Lispro 100 UNIT/ML 3 ML VIAL SUBCUT (08:15)
[2020-03-27] MEDS: 0.9 % Sodium Chloride Flush 3 ML SYRINGE IVFLUSH (08:16)
--- NOTE | 2020-03-27 11:23 | HO.PM.IMPN ---
Subjective Subjective Date of Service: 03/27/20 Interval History: seen and examined this AM very sleepy this AM ROS unreliable Physical Exam Vital Signs: Vital Signs: Last Vital Signs Temp 97.7 F 03/26/20 16:00 Pulse 60 03/27/20 08:00 Resp 18 03/27/20 08:00 BP 113/55 L 03/27/20 08:00 Pulse Ox 97 03/27/20 08:00 Body Mass Index 25.9 Const: Other: General - awake and alert, NAD, unkempt HEENT - dry mucous membranes, NG in place - dark colored/thick drainage Cardiovascular - s1s2 Lungs - dimished but no distress Abdomen - soft, nontender, no rebound or guarding Extremities - no edema bilaterally Neuro - very sleepy this AM, awakens to verbal stimuli; not able to follow much commands Objective Data Current Medications Generic Name Dose Route Start Last Admin Trade Name Freq PRN Reason Stop Dose Admin Acetaminophen 650 mg 03/23/20 18:30 Acetaminophen Supp 650 Mg Supp.Rect ID Q6H PRN Pain, Mild (Pain Scale 1-3) Dextrose 1,000 mls @ 100 mls/hr 03/26/20 13:15 03/27/20 11:19 D5w IVCONT 100 mls/hr .Q10H [facility] Administration Insulin Human Lispro 0 unit 03/23/20 21:00 03/27/20 08:15 Insulin Lispro 100 Unit/Ml 3 Ml Vial SUBCUT 4 unit QIDACHS [facility] Administration Protocol Ondansetron HCl 4 mg 03/23/20 18:30 Ondansetron Hcl 4 Mg/2 Ml Vial IVPUSH Q8H PRN Nausea and Vomiting Pantoprazole Sodium 40 mg 03/26/20 16:30 03/27/20 08:14 Pantoprazole Sodium 40 Mg/10 Ml Vial IVPUSH 40 mg BID@0630,1630 [facility] Administration Sodium Chloride 3 ml 03/24/20 00:00 03/27/20 08:16 0.9 % Sodium Chloride Flush 3 Ml Syringe IVFLUSH 3 ml QSHIFT [facility] Administration Labs CBC & Chem 7: 03/27/20 05:47 03/27/20 05:47 Microbiology Microbiology Results: Microbiology 03/23/20 13:46 Blood - Venous Blood Culture - Preliminary No growth after 48 hours. 03/23/20 13:31 Blood - Venous Blood Culture - Preliminary No growth after 48 hours. Assessment and Plan (1) Metabolic encephalopathy: Status: Acute Assessment and Plan: This is a 74 yo M with HTN, HLD, DM2, Hypothyroid, dementia who presents with increasing lethargy. He is admitted for metabolic encephalopathy due to severe hyperNa, NIURKA and gastric outlet obstruction. 1. HyperNa, NIURKA, severe dehydration leading to metabolic encephalopathy NIURKA/SNa improving with IVF -- will change to d5-/ Encephalolpathy had been improving, this AM very drowsy compared to yesterday -- will check CT head 2. UGI, gastriv outlet obstruction (less likely) vs gastropareis coffee grounds in NG IV PPI eventual PPI once more stable 3. Leukocytosis resolved likely reactive 4. Thrombocytopenia unclear cause, stable monitor b12/folate normal; HIV/Hep Screen negative 5. DM POC q6h -- has not required coverage Full Code DVT pptx, SCD d/w the daughter on the phone -- Valeria Morris @ [phone] regarding goals of care. Recommended change code status to DNR/DNI and to transition to hospice care. She will be discussing with her family and get back to me.
[2020-03-27 11:53] LABS: Glucose, Whole Blood 119 mg/dL (60-115)
--- NOTE | 2020-03-27 13:04 | MHC.CM.PN ---
Patient continues with confusion and has a 1:1 sitter, patient has dementia at baseline, pulling at lines. Patient is NPO with NG tube to wall suction. Waiting for electrolytes to stabilize then will be scheduled for EGD possible bowel obstruction. Patient's discharge plan continue to be home no services. Patient lives with and dtr who cares for patient. Dtr will provide transport. CM will continue to follow for discharge needs.
[2020-03-27] MEDS: Dextrose 5 % and 0.45 % NaCl 1,000 ML 100 ML IVCONT ×2 (13:48→21:58)
--- NOTE | 2020-03-27 15:34 | PM.PNGS ---
Subjective Subjective Date of Service: 03/27/20 Interval history: Patient pulled out his NG tube early this morning No reported vomiting Remains confused Physical Exam Vital Signs: Vital Signs: Last Vital Signs Temp 97.7 F 03/26/20 16:00 Pulse 60 03/27/20 08:00 Resp 18 03/27/20 08:00 BP 113/55 L 03/27/20 08:00 Pulse Ox 97 03/27/20 08:00 Body Mass Index 25.9 Chemistry 03/24/20 03/25/20 03/25/20 15:33 02:15 09:24 Sodium 162 H* 161 H* Cancelled Potassium 4.1 Cancelled Carbon Dioxide 29 Cancelled BUN Cancelled Creatinine Cancelled Calcium Cancelled 03/25/20 03/25/20 03/25/20 10:37 15:00 21:08 Sodium 155 H 155 H 132 L Potassium 4.2 3.8 2.4 L* D Carbon Dioxide 22 25 20 L BUN 77 H 71 H 43 H Creatinine 1.72 H 1.63 H 0.78 Calcium 7.9 L D 7.8 L 5.3 L* D 03/25/20 03/26/20 03/27/20 22:15 05:27 05:47 Sodium 156 H 153 H 146 H Potassium 3.5 D 3.8 3.1 L Carbon Dioxide 29 21 L 26 BUN 59 H 54 H 29 H Creatinine 1.40 1.22 1.02 Calcium 7.9 L D 7.9 L 7.5 L Hematology 03/25/20 03/25/20 03/26/20 09:24 21:08 05:27 WBC 12.3 H 8.2 9.9 Hgb 12.6 L 9.1 L D 12.2 L D Plt Count 60 L 48 L 65 L D 03/26/20 03/26/20 03/27/20 12:28 18:43 05:47 WBC 10.0 Hgb 11.3 L 11.5 L 10.7 L Plt Count 68 L Const: Other: Confused, not communicative but awake General: comfortable and no acute distress GI: Other: Soft, nondistended, scaphoid abdomen, no obvious tenderness Progress Note: A&P Assessment and plan (1) Gastric distention: Status: Acute Assessment and Plan: No vomiting with NG tube out Abdomen remains nondistended, actually scaphoid Remains confused, as baseline Seen by GI for coffee-grounds - upper GI endoscopy when medically stable being considered Okay to start clear liquids, advance as tolerated otherwise PPI No surgical issues at this time- discussed with hospitalist service Fall Risk Details Current Medications: Current Medications Generic Name Dose Route Start Last Admin Trade Name Freq PRN Reason Stop Dose Admin Acetaminophen 650 mg 03/23/20 18:30 Acetaminophen Supp 650 Mg Supp.Rect [place] Q6H PRN Pain, Mild (Pain Scale 1-3) Dextrose/Sodium Chloride 1,000 mls @ 100 mls/hr 03/27/20 11:30 03/27/20 13:48 D51/2ns IVCONT 100 mls/hr .Q10H [facility] Administration Insulin Human Lispro 0 unit 03/23/20 21:00 03/27/20 12:27 Insulin Lispro 100 Unit/Ml 3 Ml Vial SUBCUT Not Given QIDACHS [facility] Protocol Ondansetron HCl 4 mg 03/23/20 18:30 Ondansetron Hcl 4 Mg/2 Ml Vial IVPUSH Q8H PRN Nausea and Vomiting Pantoprazole Sodium 40 mg 03/26/20 16:30 03/27/20 08:14 Pantoprazole Sodium 40 Mg/10 Ml Vial IVPUSH 40 mg BID@0630,1630 [facility] Administration Sodium Chloride 3 ml 03/24/20 00:00 03/27/20 08:16 0.9 % Sodium Chloride Flush 3 Ml Syringe IVFLUSH 3 ml QSHIFT [facility] Administration Time Spent With Patient Time: Total time spent is greater than 50% in coordination of care (as documented) at patient's floor/unit and/or counseling patient: Time with patient: 15 - 24 minutes
[2020-03-27 16:00] VITALS: BP 126/57; PULSE 71; RESP 18; TEMP 36.5; O2SAT 96
[2020-03-27 16:44] LABS: Glucose, Whole Blood 111 mg/dL (60-115)
--- NOTE | 2020-03-27 16:57 | P.PNNP_ITS ---
Subjective Subjective Date of Service: 03/27/20 Interval history: seen and examined this AM very sleepy this AM ROS unreliable Physical Exam Vital Signs: Vital Signs: Last Vital Signs Temp 97.7 F 03/26/20 16:00 Pulse 60 03/27/20 08:00 Resp 18 03/27/20 08:00 BP 113/55 L 03/27/20 08:00 Pulse Ox 97 03/27/20 08:00 Body Mass Index 25.9 Const: Other: Confused General: confusion Orientation/consciousness: confusion HENMT: Other: dry mucous membranes Head: Yes normal to inspection, Yes normocephalic and Yes atraumatic Ears: hearing grossly normal bilaterally General nose exam: Normal external nose present Face and sinus: Yes normal facial exam Mouth: mucous membranes dry Eyes: General: appearance normal, both eyes and all related structures Sclerae: sclerae normal Pupils: Equal, round and reactive pupils present Neck: Neck: Yes normal visual inspection Chest: Chest palpation & inspection: normal inspection of the chest Resp: Effort & Inspection: normal respiratory effort and no respiratory distress Auscultation: clear to auscultation bilaterally and diminished lung sounds (Bibasilar) Cardio: Other: Confused Rate: regular rate Rhythm: regular rhythm Heart sounds: S1 normal heart sound present and S2 normal heart sound present GI: Other: Soft, nondistended, no guarding, no rebound, no palpable mass Inspection: Yes normal to inspection Palpation (GI): Soft to palpation, nontender, no guarding and not rigid Skin: General skin exam: no rashes or lesions noted Rashes: no rashes Wounds: no wounds Neuro: Other: Opens eyes to verbal/painful stimuli. Does not answer question s. Sleeping/snoring during exam General: confusion Cranial nerves: Yes CN's II-XII intact bilaterally, Yes Equal, round and reactive pupils present and Yes Bilaterally intact EOM present Gait exam (Neuro): Normal gait present Extrem: Other: No LE edema General: Yes normal to inspection and Yes no calf tenderness Objective Data Labs CBC & Chem 7: 03/27/20 05:47 03/27/20 05:47 Labs: Laboratory Results - last 24 hr 03/26/20 03/26/20 03/26/20 18:43 20:35 21:11 WBC RBC Hgb 11.5 L Hct 37.3 L MCV MCH MCHC RDW Plt Count MPV Absolute Nucleated RBC Nucleated RBC % (auto) Sodium Potassium Chloride Carbon Dioxide Anion Gap BUN Creatinine Estim Creat Clear Calc Estimated GFR POC Glucose 141 H Random Glucose Calcium Vitamin B12 Folate T.pallidum Ab (EIA) Nonreactive Hepatitis A IgM Ab Hep Bs Antigen Hep Bs Antibody Hep B Core Total Ab Hepatitis C Ab (EIA) HIV 1&2 Ab/P24 Ag 4thGn 03/27/20 03/27/20 03/27/20 05:47 05:47 05:47 WBC 10.0 RBC 3.82 L Hgb 10.7 L Hct 34.3 L MCV 89.8 MCH 28.0 MCHC 31.2 RDW 13.2 Plt Count 68 L MPV Not Reportable Absolute Nucleated RBC 0.000 Nucleated RBC % (auto) 0.0 Sodium 146 H Potassium 3.1 L Chloride 112 H Carbon Dioxide 26 Anion Gap 11 L BUN 29 H Creatinine 1.02 Estim Creat Clear Calc 67.6 Estimated GFR > 60 POC Glucose Random Glucose 222 H D Calcium 7.5 L Vitamin B12 241 Folate 11.8 T.pallidum Ab (EIA) Hepatitis A IgM Ab Hep Bs Antigen Hep Bs Antibody Hep B Core Total Ab Hepatitis C Ab (EIA) HIV 1&2 Ab/P24 Ag 4thGn 03/27/20 03/27/20 03/27/20 05:47 07:40 11:34 WBC RBC Hgb Hct MCV MCH MCHC RDW Plt Count MPV Absolute Nucleated RBC Nucleated RBC % (auto) Sodium Potassium Chloride Carbon Dioxide Anion Gap BUN Creatinine Estim Creat Clear Calc Estimated GFR POC Glucose 206 H 119 H Random Glucose Calcium Vitamin B12 Folate T.pallidum Ab (EIA) Hepatitis A IgM Ab Nonreactive Hep Bs Antigen Negative Hep Bs Antibody NONREACTIVE Hep B Core Total Ab Nonreactive Hepatitis C Ab (EIA) Nonreactive HIV 1&2 Ab/P24 Ag 4thGn Nonreactive 03/27/20 16:40 WBC RBC Hgb Hct MCV MCH MCHC RDW Plt Count MPV Absolute Nucleated RBC Nucleated RBC % (auto) Sodium Potassium Chloride Carbon Dioxide Anion Gap BUN Creatinine Estim Creat Clear Calc Estimated GFR POC Glucose 111 Random Glucose Calcium Vitamin B12 Folate T.pallidum Ab (EIA) Hepatitis A IgM Ab Hep Bs Antigen Hep Bs Antibody Hep B Core Total Ab Hepatitis C Ab (EIA) HIV 1&2 Ab/P24 Ag 4thGn Microbiology Microbiology Results: Microbiology 03/23/20 13:46 Blood - Venous Blood Culture - Preliminary No growth after 48 hours. 03/23/20 13:31 Blood - Venous Blood Culture - Preliminary No growth after 48 hours. Assessment & Plan Assessment and plan (1) Gastric distention: Status: Acute Assessment and Plan: 1. NIURKA: resolving; c/w dehtdration and renal hypoperfusion 2. HyperNa:resolving w IVF REC: cont IVF until taking po ; avoid NToxins Time Spent With Patient Time: Total time spent is greater than 50% in coordination of care (as documented) at patient's floor/unit and/or counseling patient:
[2020-03-27 19:24] VITALS: BP 123/57; PULSE 95; RESP 18; TEMP 36.9; O2SAT 99
[2020-03-27 20:20] LABS: Glucose, Whole Blood 124 mg/dL (60-115)
[2020-03-27 23:52] VITALS: BP 113/59; PULSE 69; RESP 18; TEMP 36.8; O2SAT 98
[2020-03-28] MEDS: Haloperidol Lactate 5 MG/ML VIAL 2.5 MG IVPUSH (00:22)
[2020-03-28 04:00] VITALS: BP 126/65; PULSE 75; RESP 18; TEMP 36.8; O2SAT 97
[2020-03-28] MEDS: Dextrose 5 % and 0.45 % NaCl 1,000 ML 100 ML IVCONT (06:22)
[2020-03-28] MEDS: Pantoprazole Sodium 40 MG/10 ML VIAL IVPUSH (06:22)
[2020-03-28 06:35] LABS: Anion Gap 12 (12-20); Blood Urea Nitrogen 19 mg/dL (9-16); Calcium 7.3 mg/dL (8.4-10.2); Carbon Dioxide 25 mmol/L (22-29); Chloride 111 mmol/L (96-108); Estimated Glomerular Filt Rate > 60; Glucose Random 171 mg/dL (60-115); Potassium 3.3 mmol/l (3.3-5.1); Sodium 145 mmol/L (135-145)
[2020-03-28 06:46] LABS: Hematocrit 35.6 % (42-52); Mean Corpuscular HGB Conc 30.9 g/dl (31.0-36.0); Mean Corpuscular Hemoglobin 27.6 pg (27.0-33.0); Mean Corpuscular Volume 89.4 fL (80-98); Red Blood Count 3.98 X10*6/uL (4.60-5.80); Red Cell Distribution Width 13.1 % (11.0-16.0); White Blood Count 13.1 X10*3/uL (4.8-10.8)
[2020-03-28 06:47] LABS: Platelet Count 66 X10*3/uL (160-400)
[2020-03-28 07:56] VITALS: BP 111/51; PULSE 60; RESP 18; TEMP 36.9; O2SAT 95
[2020-03-28 08:03] LABS: Glucose, Whole Blood 165 mg/dL (60-115)
[2020-03-28] MEDS: Insulin Lispro 100 UNIT/ML 3 ML VIAL SUBCUT (09:07)
--- NOTE | 2020-03-28 11:24 | P.PNIM_ITS ---
Subjective Subjective Date of Service: 03/28/20 Interval History: seen and examined overnight events reviewed -- became agitated and required sedation this AM opens eyes to strong verbal / tactile simtuli ROS unreliable Physical Exam Vital Signs: Vital Signs: Last Vital Signs Temp 98.5 F 03/28/20 07:56 Pulse 60 03/28/20 07:56 Resp 18 03/28/20 07:56 BP 111/51 L 03/28/20 07:56 Pulse Ox 95 03/28/20 07:56 Body Mass Index 25.9 Const: Other: General - appears comfortable Cardiovascular - regular rate and rhythm, S1-S2 Lungs - normal respiratory effort, clear to auscultation bilaterally, no wheezing Abdomen - soft, nontender, no rebound or guarding Extremities - no edema bilaterally Neuro - sedated Objective Data Current Medications Generic Name Dose Route Start Last Admin Trade Name Freq PRN Reason Stop Dose Admin Acetaminophen 650 mg 03/23/20 18:30 Acetaminophen Supp 650 Mg Supp.Rect [place] Q6H PRN Pain, Mild (Pain Scale 1-3) Dextrose/Sodium Chloride 1,000 mls @ 100 mls/hr 03/27/20 11:30 03/28/20 06:22 D51/2ns IVCONT 100 mls/hr .Q10H [facility] Administration Insulin Human Lispro 0 unit 03/23/20 21:00 03/28/20 09:07 Insulin Lispro 100 Unit/Ml 3 Ml Vial SUBCUT 2 unit QIDACHS [facility] Administration Protocol Ondansetron HCl 4 mg 03/23/20 18:30 Ondansetron Hcl 4 Mg/2 Ml Vial IVPUSH Q8H PRN Nausea and Vomiting Pantoprazole Sodium 40 mg 03/26/20 16:30 03/28/20 06:22 Pantoprazole Sodium 40 Mg/10 Ml Vial IVPUSH 40 mg BID@0630,1630 [facility] Administration Sodium Chloride 3 ml 03/24/20 00:00 03/28/20 09:08 0.9 % Sodium Chloride Flush 3 Ml Syringe IVFLUSH Not Given QSHIFT [facility] Labs CBC & Chem 7: 03/28/20 05:43 03/28/20 05:43 Microbiology Microbiology Results: Microbiology 03/23/20 13:46 Blood - Venous Blood Culture - Preliminary No growth after 48 hours. 03/23/20 13:31 Blood - Venous Blood Culture - Preliminary No growth after 48 hours. Assessment and Plan (1) Metabolic encephalopathy: Status: Acute Assessment and Plan: This is a 74 yo M with HTN, HLD, DM2, Hypothyroid, dementia who presents with increasing lethargy. He is admitted for metabolic encephalopathy due to severe hyperNa, NIURKA and gastric outlet obstruction. 1. HyperNa, NIURKA, severe dehydration leading to metabolic encephalopathy, end stage dementia continue D5-1/2 while in the hospital d/w Daughter Valeria Morris @ [phone] who reports that she has discussed her fathers care with her family and decided upon home with hospice. CM informed to start the process 2. UGI, gastris outlet obstruction (less likely) vs gastropareis stop iv ppi 3. Leukocytosis resolved likely reactive 4. Thrombocytopenia unclear cause, stable monitor b12/folate normal; HIV/Hep Screen negative 5. DM POC q6h -- has not required coverage DNR/DNI (changed by daughter) Dispo: home with hospice
[2020-03-28 11:43] LABS: Glucose, Whole Blood 135 mg/dL (60-115)
--- NOTE | 2020-03-28 11:50 | MHC.CM.PN ---
CM spoke with patient's dtr/HCP Delores by phone who does report she would like to take patient home with her on Hospice. Referral made to [facility] per Delores's request. CM will continue to follow for discharge needs.
[2020-03-28 12:00] VITALS: BP 116/56; PULSE 60; RESP 16; TEMP 36.8; O2SAT 93
--- NOTE | 2020-03-28 15:05 | MHC.CM.PN ---
CM witnessed MOLST with Dr Dialy, laminator hand and HCP Iris by phone. MOLST completed and placed on front of chart. CM will continue to follow for discharge needs.
[2020-03-28 15:29] VITALS: BP 108/56; PULSE 72; RESP 18; TEMP 37.4
[2020-03-28] MEDS: 0.9 % Sodium Chloride Flush 3 ML SYRINGE IVFLUSH ×2 (17:40→21:19)
--- NOTE | 2020-03-28 17:41 | P.EN_ITS ---
Event Note Date of Service: 03/28/20 Event Note: Late Entry Telephone conversation with official court interpreterMadhuri from , patients / HCP Iris held to complete MOLST form in anticipation of home with hospice tomorrow. MOLST form completed and placed in chart. DNR/DNI on EMR. Plan is discharge home tomorrow with hospice services.
[2020-03-28 19:12] VITALS: BP 109/67; PULSE 82; RESP 18; TEMP 37.7
[2020-03-28 20:23] LABS: Glucose, Whole Blood 116 mg/dL (60-115)
[2020-03-28] MEDS: QUEtiapine Fumarate 25 MG TABLET PO (21:19)
[2020-03-28 23:55] VITALS: BP 130/60; PULSE 69; RESP 18; TEMP 36.7; O2SAT 97
[2020-03-29 03:12] VITALS: BP 103/57; PULSE 68; RESP 18; TEMP 36.8; O2SAT 98
[2020-03-29 07:07] LABS: Anion Gap 12 (12-20); Blood Urea Nitrogen 15 mg/dL (9-16); Calcium 7.3 mg/dL (8.4-10.2); Carbon Dioxide 26 mmol/L (22-29); Chloride 112 mmol/L (96-108); Creatinine Clr Calc Pharmacy 67.6; Estimated Glomerular Filt Rate > 60; Glucose Random 118 mg/dL (60-115); Potassium 3.4 mmol/l (3.3-5.1); Sodium 147 mmol/L (135-145)
[2020-03-29 07:08] LABS: Hematocrit 36.4 % (42-52); Hemoglobin 11.4 g/dl (14.0-18.0); Mean Corpuscular HGB Conc 31.3 g/dl (31.0-36.0); Mean Corpuscular Hemoglobin 27.7 pg (27.0-33.0); Mean Corpuscular Volume 88.6 fL (80-98); Mean Platelet Volume 14.7 fL (9.4-12.4); Red Blood Count 4.11 X10*6/uL (4.60-5.80); Red Cell Distribution Width 13.2 % (11.0-16.0); White Blood Count 14.4 X10*3/uL (4.8-10.8)
[2020-03-29 07:10] LABS: Platelet Count 82 X10*3/uL (160-400)
[2020-03-29 08:11] LABS: Glucose, Whole Blood 144 mg/dL (60-115)
--- NOTE | 2020-03-29 08:47 | MHC.CM.PN ---
Patient will be discharged home today with [facility] at 10am via BLS transport. Nurse and Dtr Delores are aware.
[2020-03-29] MEDS: 0.9 % Sodium Chloride Flush 3 ML SYRINGE IVFLUSH (09:08)
--- NOTE | 2020-03-29 10:18 | P.DS_ITS ---
DS: Providers Provider Date of Service: 03/29/20 Date of admission: 03/23/20 18:30 Primary care physician: José Antonio Ying MD Consults: 03/23/20 18:12 Consult to General Surgery Routine Consulting Provider: Jamarcus Alvarez Reason for consultation: gastric outlet obstruction Has provider been notified: No Consult to Nephrology Routine Consulting Provider: Landen Vásquez Reason for consultation: alona, hypernatremia Has provider been notified: No 03/26/20 12:16 Consult to Gastroenterology Routine Consulting Provider: Dea Harrison Reason for consultation: coffee ground emesis 03/26/20 16:35 Consult to General Surgery Routine Consulting Provider: Kevin Olguin Reason for consultation: gastric outlet obstruction DS: Diagnosis Discharge Diagnosis (1) Metabolic encephalopathy: Status: Acute (2) Acute renal failure: Status: Acute (3) Acute hypernatremia: Status: Acute (4) Acute dehydration: Status: Acute (5) Gastric outlet obstruction: Status: Acute Problem details: ruled out (6) Coffee ground emesis: Status: Acute DS: Medications Discharge Medications Home Medications: Home Medications Medication Instructions Recorded Confirmed citalopram 1 tab PO DAILY 03/23/20 03/23/20 donepezil 1 tab PO BEDTIME 03/23/20 03/23/20 folic acid 1 tab PO DAILY 03/23/20 03/23/20 memantine 1 tab PO BID 03/23/20 03/23/20 metoprolol succinate 1 tab PO DAILY 03/23/20 03/23/20 multivitamin with folic acid 1 tab PO DAILY 03/23/20 03/23/20 [Tab-A-Gordon] quetiapine 1 tab PO DAILY 03/23/20 03/23/20 Previous Rx's Medication Instructions Recorded haloperidol lactate 1 mg PO Q8H PRN 1 Days ml 03/29/20 lorazepam [Ativan] 0.5 mg PO TID PRN #30 tab 03/29/20 morphine concentrate 5 mg PO Q6H PRN #30 ml 03/29/20 DS: Summary Hospital Course Hospital Course: Patient presented with 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 He was also found on CT imaging to have possibility of gastric outlet obstruction. For his encephalopathy, hypernatremia, renal failure he was treated with IV fluids and had resolution of his renal failure and hypernatremia. His gastric outlet obstruction was ruled out and likely was felt to be gastric ileus which was treated with conservative management with NG tube placement. His hospital course was further complicated by coffee-grounds emesis which was deemed secondary to traumatic NG insertion. Fortunately all of these resolved on their own. Despite improvement in his renal failure and hypernatremia patient's encephalopathy did not resolve which indicated end-stage dementia. Multiple conversations were held with the patient's daughter and patient's was the healthcare proxy and ultimately they decided upon transitioning him to hospice at home. Time Spent with Patient Time attestation: Total time spent providing and/or coordinating discharge services: Discharge coordination time: Greater than 30 minutes Physical Exam Vital Signs: Vital Signs: Last Vital Signs Temp 98.2 F 03/29/20 03:12 Pulse 68 03/29/20 03:12 Resp 18 03/29/20 03:12 BP 103/57 L 03/29/20 03:12 Pulse Ox 98 03/29/20 03:12 Body Mass Index 25.9 Const: Other: General - appears comfortable Cardiovascular - regular rate and rhythm, S1-S2 Lungs - normal respiratory effort, clear to auscultation bilaterally, no wheezing Abdomen - soft, nontender, no rebound or guarding Extremities - no edema bilaterally Neuro - resting comfortably DS: Data Data Completed and Pending Labs on day of discharge: Laboratory Tests 03/23/20 03/23/20 03/23/20 12:55 13:31 13:32 WBC 19.5 H RBC 5.76 Hgb 15.9 Hct 52.4 H MCV 91.0 MCH 27.6 MCHC 30.3 L RDW 14.1 Plt Count 90 L MPV Immature Gran % (Auto) 0.5 H Neut % (Auto) 89.8 H Lymph % (Auto) 3.6 L [place] % (Auto) 5.9 Eos % (Auto) 0.0 Baso % (Auto) 0.2 Lymph # (Auto) 0.7 L [place] # (Auto) 1.2 Eos # (Auto) 0.0 Baso # (Auto) 0.0 Abs Immat Gran (auto) 0.09 H Absolute Neuts (auto) 17.5 H Absolute Nucleated RBC 0.000 Nucleated RBC % (auto) 0.0 Smear Tech's Comments VERIFIED PT INR APTT Sodium Potassium Chloride Carbon Dioxide Anion Gap BUN Creatinine Estim Creat Clear Calc Estimated GFR POC Glucose 241 H Random Glucose Lactic Acid 2.4 H* Lactic Acid Fup @ 2Hr Lactic Acid Fup @ 4Hr Calcium Magnesium Ferritin Total Bilirubin Direct Bilirubin AST ALT Alkaline Phosphatase Ammonia Lactate Dehydrogenase Total Creatine Kinase Troponin I High Sens C-Reactive Protein Total Protein Albumin Lipase Vitamin B12 Folate Procalcitonin TSH Urine Color Urine Appearance Urine pH Ur Specific [place] Urine Protein Urine Glucose (UA) Urine Ketones Urine Blood Urine Nitrite Ur Leukocyte Esterase Ethyl Alcohol T.pallidum Ab (EIA) Coronavirus (PCR) Hepatitis A IgM Ab Hep Bs Antigen Hep Bs Antibody Hep B Core Total Ab Hepatitis C Ab (EIA) HIV 1&2 Ab/P24 Ag 4thGn Influenza Type A (PCR) Influenza Type B (PCR) RSV RNA Qual (PCR) 03/23/20 03/23/20 03/23/20 13:32 13:32 13:32 WBC RBC Hgb Hct MCV MCH MCHC RDW Plt Count MPV Immature Gran % (Auto) Neut % (Auto) Lymph % (Auto) [place] % (Auto) Eos % (Auto) Baso % (Auto) Lymph # (Auto) [place] # (Auto) Eos # (Auto) Baso # (Auto) Abs Immat Gran (auto) Absolute Neuts (auto) Absolute Nucleated RBC Nucleated RBC % (auto) Smear Tech's Comments PT INR APTT Sodium 164 H* Potassium 4.0 Chloride 120 H Carbon Dioxide 27 Anion Gap 21 H BUN 103 H* Creatinine 3.53 H Estim Creat Clear Calc 21.6 Estimated GFR 17 POC Glucose Random Glucose 316 H Lactic Acid Lactic Acid Fup @ 2Hr Lactic Acid Fup @ 4Hr Calcium 9.5 Magnesium 2.9 H Ferritin Total Bilirubin 1.9 H Direct Bilirubin 1.1 H AST 26 ALT 36 Alkaline Phosphatase 77 Ammonia 44 Lactate Dehydrogenase 189 Total Creatine Kinase 374 H Troponin I High Sens 104.6 H C-Reactive Protein 4.41 H Total Protein 7.7 Albumin 4.2 Lipase Vitamin B12 Folate Procalcitonin TSH Urine Color Urine Appearance Urine pH Ur Specific [place] Urine Protein Urine Glucose (UA) Urine Ketones Urine Blood Urine Nitrite Ur Leukocyte Esterase Ethyl Alcohol T.pallidum Ab (EIA) Coronavirus (PCR) Hepatitis A IgM Ab Hep Bs Antigen Hep Bs Antibody Hep B Core Total Ab Hepatitis C Ab (EIA) HIV 1&2 Ab/P24 Ag 4thGn Influenza Type A (PCR) Influenza Type B (PCR) RSV RNA Qual (PCR) 03/23/20 03/23/20 03/23/20 13:32 13:32 13:32 WBC RBC Hgb Hct MCV MCH MCHC RDW Plt Count MPV Immature Gran % (Auto) Neut % (Auto) Lymph % (Auto) [place] % (Auto) Eos % (Auto) Baso % (Auto) Lymph # (Auto) [place] # (Auto) Eos # (Auto) Baso # (Auto) Abs Immat Gran (auto) Absolute Neuts (auto) Absolute Nucleated RBC Nucleated RBC % (auto) Smear Tech's Comments PT 14.6 H INR 1.2 H APTT 30.6 Sodium Potassium Chloride Carbon Dioxide Anion Gap BUN Creatinine Estim Creat Clear Calc Estimated GFR POC Glucose Random Glucose Lactic Acid Lactic Acid Fup @ 2Hr Lactic Acid Fup @ 4Hr Calcium Magnesium Ferritin 1412 H Total Bilirubin Direct Bilirubin AST ALT Alkaline Phosphatase Ammonia Lactate Dehydrogenase Total Creatine Kinase Troponin I High Sens C-Reactive Protein Total Protein Albumin Lipase 41 Vitamin B12 Folate Procalcitonin TSH Urine Color Urine Appearance Urine pH Ur Specific [place] Urine Protein Urine Glucose (UA) Urine Ketones Urine Blood Urine Nitrite Ur Leukocyte Esterase Ethyl Alcohol T.pallidum Ab (EIA) Coronavirus (PCR) NEGATIVE Hepatitis A IgM Ab Hep Bs Antigen Hep Bs Antibody Hep B Core Total Ab Hepatitis C Ab (EIA) HIV 1&2 Ab/P24 Ag 4thGn Influenza Type A (PCR) NEGATIVE Influenza Type B (PCR) NEGATIVE RSV RNA Qual (PCR) NEGATIVE 03/23/20 03/23/20 03/23/20 13:32 13:32 13:56 WBC RBC Hgb Hct MCV MCH MCHC RDW Plt Count MPV Immature Gran % (Auto) Neut % (Auto) Lymph % (Auto) [place] % (Auto) Eos % (Auto) Baso % (Auto) Lymph # (Auto) [place] # (Auto) Eos # (Auto) Baso # (Auto) Abs Immat Gran (auto) Absolute Neuts (auto) Absolute Nucleated RBC Nucleated RBC % (auto) Smear Tech's Comments PT INR APTT Sodium Potassium Chloride Carbon Dioxide Anion Gap BUN Creatinine Estim Creat Clear Calc Estimated GFR POC Glucose Random Glucose Lactic Acid Lactic Acid Fup @ 2Hr Lactic Acid Fup @ 4Hr Calcium Magnesium Ferritin Total Bilirubin Direct Bilirubin AST ALT Alkaline Phosphatase Ammonia Lactate Dehydrogenase Total Creatine Kinase Troponin I High Sens C-Reactive Protein Total Protein Albumin Lipase Vitamin B12 Folate Procalcitonin 0.16 TSH Urine Color MICK Urine Appearance HAZY Urine pH 5.0 Ur Specific Maurice >= 1.030 H Urine Protein TRACE Urine Glucose (UA) NEG Urine Ketones 5 Urine Blood NEG Urine Nitrite NEG Ur Leukocyte Esterase NEG Ethyl Alcohol < 10 T.pallidum Ab (EIA) Coronavirus (PCR) Hepatitis A IgM Ab Hep Bs Antigen Hep Bs Antibody Hep B Core Total Ab Hepatitis C Ab (EIA) HIV 1&2 Ab/P24 Ag 4thGn Influenza Type A (PCR) Influenza Type B (PCR) RSV RNA Qual (PCR) 03/23/20 03/23/20 03/23/20 18:04 18:04 18:04 WBC RBC Hgb Hct MCV MCH MCHC RDW Plt Count MPV Immature Gran % (Auto) Neut % (Auto) Lymph % (Auto) [place] % (Auto) Eos % (Auto) Baso % (Auto) Lymph # (Auto) [place] # (Auto) Eos # (Auto) Baso # (Auto) Abs Immat Gran (auto) Absolute Neuts (auto) Absolute Nucleated RBC Nucleated RBC % (auto) Smear Tech's Comments PT INR APTT Sodium 164 H* Potassium 4.4 Chloride 121 H Carbon Dioxide 30 H Anion Gap 17 BUN 102 H* Creatinine 3.30 H Estim Creat Clear Calc 23.1 Estimated GFR 18 POC Glucose Random Glucose 278 H Lactic Acid Lactic Acid Fup @ 2Hr 3.2 H* Lactic Acid Fup @ 4Hr Calcium 8.8 D Magnesium Ferritin Total Bilirubin Direct Bilirubin AST ALT Alkaline Phosphatase Ammonia Lactate Dehydrogenase Total Creatine Kinase Troponin I High Sens 103.7 H C-Reactive Protein Total Protein Albumin Lipase Vitamin B12 Folate Procalcitonin TSH 2.57 Urine Color Urine Appearance Urine pH Ur Specific [place] Urine Protein Urine Glucose (UA) Urine Ketones Urine Blood Urine Nitrite Ur Leukocyte Esterase Ethyl Alcohol T.pallidum Ab (EIA) Coronavirus (PCR) Hepatitis A IgM Ab Hep Bs Antigen Hep Bs Antibody Hep B Core Total Ab Hepatitis C Ab (EIA) HIV 1&2 Ab/P24 Ag 4thGn Influenza Type A (PCR) Influenza Type B (PCR) RSV RNA Qual (PCR) 03/23/20 03/23/20 03/23/20 18:04 18:39 20:58 WBC RBC Hgb Hct MCV MCH MCHC RDW Plt Count MPV Immature Gran % (Auto) Neut % (Auto) Lymph % (Auto) [place] % (Auto) Eos % (Auto) Baso % (Auto) Lymph # (Auto) [place] # (Auto) Eos # (Auto) Baso # (Auto) Abs Immat Gran (auto) Absolute Neuts (auto) Absolute Nucleated RBC Nucleated RBC % (auto) Smear Tech's Comments PT INR APTT Sodium Potassium Chloride Carbon Dioxide Anion Gap BUN Creatinine Estim Creat Clear Calc Estimated GFR POC Glucose 220 H 268 H Random Glucose Lactic Acid Lactic Acid Fup @ 2Hr Lactic Acid Fup @ 4Hr Calcium Magnesium Ferritin Total Bilirubin Direct Bilirubin AST ALT Alkaline Phosphatase Ammonia Lactate Dehydrogenase Total Creatine Kinase Troponin I High Sens Cancelled C-Reactive Protein Total Protein Albumin Lipase Vitamin B12 Folate Procalcitonin TSH Urine Color Urine Appearance Urine pH Ur Specific [place] Urine Protein Urine Glucose (UA) Urine Ketones Urine Blood Urine Nitrite Ur Leukocyte Esterase Ethyl Alcohol T.pallidum Ab (EIA) Coronavirus (PCR) Hepatitis A IgM Ab Hep Bs Antigen Hep Bs Antibody Hep B Core Total Ab Hepatitis C Ab (EIA) HIV 1&2 Ab/P24 Ag 4thGn Influenza Type A (PCR) Influenza Type B (PCR) RSV RNA Qual (PCR) 03/23/20 03/23/20 03/24/20 21:26 21:26 03:08 WBC RBC Hgb Hct MCV MCH MCHC RDW Plt Count MPV Immature Gran % (Auto) Neut % (Auto) Lymph % (Auto) [place] % (Auto) Eos % (Auto) Baso % (Auto) Lymph # (Auto) [place] # (Auto) Eos # (Auto) Baso # (Auto) Abs Immat Gran (auto) Absolute Neuts (auto) Absolute Nucleated RBC Nucleated RBC % (auto) Smear Tech's Comments PT INR APTT Sodium 163 H* 164 H* Potassium Chloride Carbon Dioxide Anion Gap BUN Creatinine Estim Creat Clear Calc Estimated GFR POC Glucose Random Glucose Lactic Acid Lactic Acid Fup @ 2Hr Lactic Acid Fup @ 4Hr 3.5 H* Calcium Magnesium Ferritin Total Bilirubin Direct Bilirubin AST ALT Alkaline Phosphatase Ammonia Lactate Dehydrogenase Total Creatine Kinase Troponin I High Sens C-Reactive Protein Total Protein Albumin Lipase Vitamin B12 Folate Procalcitonin TSH Urine Color Urine Appearance Urine pH Ur Specific [place] Urine Protein Urine Glucose (UA) Urine Ketones Urine Blood Urine Nitrite Ur Leukocyte Esterase Ethyl Alcohol T.pallidum Ab (EIA) Coronavirus (PCR) Hepatitis A IgM Ab Hep Bs Antigen Hep Bs Antibody Hep B Core Total Ab Hepatitis C Ab (EIA) HIV 1&2 Ab/P24 Ag 4thGn Influenza Type A (PCR) Influenza Type B (PCR) RSV RNA Qual (PCR) 03/24/20 03/24/20 03/24/20 06:09 06:09 08:35 WBC 17.7 H RBC 5.11 Hgb 14.1 Hct 46.4 MCV 90.8 MCH 27.6 MCHC 30.4 L RDW 14.2 Plt Count 63 L D MPV Immature Gran % (Auto) 0.4 Neut % (Auto) 84.8 H Lymph % (Auto) 6.9 L [place] % (Auto) 7.6 Eos % (Auto) 0.1 Baso % (Auto) 0.2 Lymph # (Auto) 1.2 [place] # (Auto) 1.4 H Eos # (Auto) 0.0 Baso # (Auto) 0.0 Abs Immat Gran (auto) 0.07 H Absolute Neuts (auto) 15.0 H Absolute Nucleated RBC 0.000 Nucleated RBC % (auto) 0.0 Smear Tech's Comments VERIFIED PT INR APTT Sodium 162 H* Potassium Chloride Carbon Dioxide Anion Gap BUN Creatinine Estim Creat Clear Calc Estimated GFR POC Glucose 259 H Random Glucose Lactic Acid Lactic Acid Fup @ 2Hr Lactic Acid Fup @ 4Hr Calcium Magnesium Ferritin Total Bilirubin Direct Bilirubin AST ALT Alkaline Phosphatase Ammonia Lactate Dehydrogenase Total Creatine Kinase Troponin I High Sens C-Reactive Protein Total Protein Albumin Lipase Vitamin B12 Folate Procalcitonin TSH Urine Color Urine Appearance Urine pH Ur Specific [place] Urine Protein Urine Glucose (UA) Urine Ketones Urine Blood Urine Nitrite Ur Leukocyte Esterase Ethyl Alcohol T.pallidum Ab (EIA) Coronavirus (PCR) Hepatitis A IgM Ab Hep Bs Antigen Hep Bs Antibody Hep B Core Total Ab Hepatitis C Ab (EIA) HIV 1&2 Ab/P24 Ag 4thGn Influenza Type A (PCR) Influenza Type B (PCR) RSV RNA Qual (PCR) 03/24/20 03/24/20 03/24/20 11:49 11:49 12:34 WBC RBC Hgb Hct MCV MCH MCHC RDW Plt Count MPV Immature Gran % (Auto) Neut % (Auto) Lymph % (Auto) [place] % (Auto) Eos % (Auto) Baso % (Auto) Lymph # (Auto) [place] # (Auto) Eos # (Auto) Baso # (Auto) Abs Immat Gran (auto) Absolute Neuts (auto) Absolute Nucleated RBC Nucleated RBC % (auto) Smear Tech's Comments PT INR APTT Sodium Cancelled 164 H* Potassium 3.5 D Chloride 121 H Carbon Dioxide 29 Anion Gap 18 BUN 103 H* Creatinine 2.93 H Estim Creat Clear Calc 26.0 Estimated GFR 21 POC Glucose 162 H Random Glucose 157 H D Lactic Acid Lactic Acid Fup @ 2Hr Lactic Acid Fup @ 4Hr Calcium 8.7 Magnesium Ferritin Total Bilirubin Direct Bilirubin AST ALT Alkaline Phosphatase Ammonia Lactate Dehydrogenase Total Creatine Kinase Troponin I High Sens C-Reactive Protein Total Protein Albumin Lipase Vitamin B12 Folate Procalcitonin TSH Urine Color Urine Appearance Urine pH Ur Specific [place] Urine Protein Urine Glucose (UA) Urine Ketones Urine Blood Urine Nitrite Ur Leukocyte Esterase Ethyl Alcohol T.pallidum Ab (EIA) Coronavirus (PCR) Hepatitis A IgM Ab Hep Bs Antigen Hep Bs Antibody Hep B Core Total Ab Hepatitis C Ab (EIA) HIV 1&2 Ab/P24 Ag 4thGn Influenza Type A (PCR) Influenza Type B (PCR) RSV RNA Qual (PCR) 03/24/20 03/24/20 03/24/20 15:33 15:33 18:08 WBC RBC Hgb Hct MCV MCH MCHC RDW Plt Count MPV Immature Gran % (Auto) Neut % (Auto) Lymph % (Auto) [place] % (Auto) Eos % (Auto) Baso % (Auto) Lymph # (Auto) [place] # (Auto) Eos # (Auto) Baso # (Auto) Abs Immat Gran (auto) Absolute Neuts (auto) Absolute Nucleated RBC Nucleated RBC % (auto) Smear Tech's Comments PT INR APTT Sodium 162 H* Potassium Chloride Carbon Dioxide Anion Gap BUN Creatinine Estim Creat Clear Calc Estimated GFR POC Glucose 118 H Random Glucose Lactic Acid 2.8 H* Lactic Acid Fup @ 2Hr Lactic Acid Fup @ 4Hr Calcium Magnesium Ferritin Total Bilirubin Direct Bilirubin AST ALT Alkaline Phosphatase Ammonia Lactate Dehydrogenase Total Creatine Kinase Troponin I High Sens C-Reactive Protein Total Protein Albumin Lipase Vitamin B12 Folate Procalcitonin TSH Urine Color Urine Appearance Urine pH Ur Specific [place] Urine Protein Urine Glucose (UA) Urine Ketones Urine Blood Urine Nitrite Ur Leukocyte Esterase Ethyl Alcohol T.pallidum Ab (EIA) Coronavirus (PCR) Hepatitis A IgM Ab Hep Bs Antigen Hep Bs Antibody Hep B Core Total Ab Hepatitis C Ab (EIA) HIV 1&2 Ab/P24 Ag 4thGn Influenza Type A (PCR) Influenza Type B (PCR) RSV RNA Qual (PCR) 03/24/20 03/24/20 03/25/20 21:50 22:07 02:15 WBC RBC Hgb Hct MCV MCH MCHC RDW Plt Count MPV Immature Gran % (Auto) Neut % (Auto) Lymph % (Auto) [place] % (Auto) Eos % (Auto) Baso % (Auto) Lymph # (Auto) [place] # (Auto) Eos # (Auto) Baso # (Auto) Abs Immat Gran (auto) Absolute Neuts (auto) Absolute Nucleated RBC Nucleated RBC % (auto) Smear Tech's Comments PT INR APTT Sodium Potassium Chloride Carbon Dioxide Anion Gap BUN Creatinine Estim Creat Clear Calc Estimated GFR POC Glucose 113 Random Glucose Lactic Acid Lactic Acid Fup @ 2Hr 2.2 H* Lactic Acid Fup @ 4Hr 2.0 Calcium Magnesium Ferritin Total Bilirubin Direct Bilirubin AST ALT Alkaline Phosphatase Ammonia Lactate Dehydrogenase Total Creatine Kinase Troponin I High Sens C-Reactive Protein Total Protein Albumin Lipase Vitamin B12 Folate Procalcitonin TSH Urine Color Urine Appearance Urine pH Ur Specific [place] Urine Protein Urine Glucose (UA) Urine Ketones Urine Blood Urine Nitrite Ur Leukocyte Esterase Ethyl Alcohol T.pallidum Ab (EIA) Coronavirus (PCR) Hepatitis A IgM Ab Hep Bs Antigen Hep Bs Antibody Hep B Core Total Ab Hepatitis C Ab (EIA) HIV 1&2 Ab/P24 Ag 4thGn Influenza Type A (PCR) Influenza Type B (PCR) RSV RNA Qual (PCR) 03/25/20 03/25/20 03/25/20 02:15 04:17 08:14 WBC RBC Hgb Hct MCV MCH MCHC RDW Plt Count MPV Immature Gran % (Auto) Neut % (Auto) Lymph % (Auto) [place] % (Auto) Eos % (Auto) Baso % (Auto) Lymph # (Auto) [place] # (Auto) Eos # (Auto) Baso # (Auto) Abs Immat Gran (auto) Absolute Neuts (auto) Absolute Nucleated RBC Nucleated RBC % (auto) Smear Tech's Comments PT INR APTT Sodium 161 H* Potassium 4.1 Chloride 120 H Carbon Dioxide 29 Anion Gap 16 BUN Creatinine Estim Creat Clear Calc Estimated GFR POC Glucose 112 126 H Random Glucose Lactic Acid Lactic Acid Fup @ 2Hr Lactic Acid Fup @ 4Hr Calcium Magnesium Ferritin Total Bilirubin Direct Bilirubin AST ALT Alkaline Phosphatase Ammonia Lactate Dehydrogenase Total Creatine Kinase Troponin I High Sens C-Reactive Protein Total Protein Albumin Lipase Vitamin B12 Folate Procalcitonin TSH Urine Color Urine Appearance Urine pH Ur Specific [place] Urine Protein Urine Glucose (UA) Urine Ketones Urine Blood Urine Nitrite Ur Leukocyte Esterase Ethyl Alcohol T.pallidum Ab (EIA) Coronavirus (PCR) Hepatitis A IgM Ab Hep Bs Antigen Hep Bs Antibody Hep B Core Total Ab Hepatitis C Ab (EIA) HIV 1&2 Ab/P24 Ag 4thGn Influenza Type A (PCR) Influenza Type B (PCR) RSV RNA Qual (PCR) 03/25/20 03/25/20 03/25/20 09:24 09:24 10:37 WBC 12.3 H RBC 4.55 L Hgb 12.6 L Hct 42.4 MCV 93.2 MCH 27.7 MCHC 29.7 L RDW 14.4 Plt Count 60 L MPV Not Reportable Immature Gran % (Auto) Neut % (Auto) Lymph % (Auto) [place] % (Auto) Eos % (Auto) Baso % (Auto) Lymph # (Auto) [place] # (Auto) Eos # (Auto) Baso # (Auto) Abs Immat Gran (auto) Absolute Neuts (auto) Absolute Nucleated RBC 0.000 Nucleated RBC % (auto) 0.0 Smear Tech's Comments PT INR APTT Sodium Cancelled 155 H Potassium Cancelled 4.2 Chloride Cancelled 121 H Carbon Dioxide Cancelled 22 Anion Gap Cancelled 16 BUN Cancelled 77 H Creatinine Cancelled 1.72 H Estim Creat Clear Calc Cancelled 44.3 Estimated GFR Cancelled 39 POC Glucose Random Glucose Cancelled 162 H Lactic Acid Lactic Acid Fup @ 2Hr Lactic Acid Fup @ 4Hr Calcium Cancelled 7.9 L D Magnesium Ferritin Total Bilirubin Direct Bilirubin AST ALT Alkaline Phosphatase Ammonia Lactate Dehydrogenase Total Creatine Kinase Troponin I High Sens C-Reactive Protein Total Protein Albumin Lipase Vitamin B12 Folate Procalcitonin TSH Urine Color Urine Appearance Urine pH Ur Specific [place] Urine Protein Urine Glucose (UA) Urine Ketones Urine Blood Urine Nitrite Ur Leukocyte Esterase Ethyl Alcohol T.pallidum Ab (EIA) Coronavirus (PCR) Hepatitis A IgM Ab Hep Bs Antigen Hep Bs Antibody Hep B Core Total Ab Hepatitis C Ab (EIA) HIV 1&2 Ab/P24 Ag 4thGn Influenza Type A (PCR) Influenza Type B (PCR) RSV RNA Qual (PCR) 03/25/20 03/25/20 03/25/20 12:20 15:00 16:54 WBC RBC Hgb Hct MCV MCH MCHC RDW Plt Count MPV Immature Gran % (Auto) Neut % (Auto) Lymph % (Auto) [place] % (Auto) Eos % (Auto) Baso % (Auto) Lymph # (Auto) [place] # (Auto) Eos # (Auto) Baso # (Auto) Abs Immat Gran (auto) Absolute Neuts (auto) Absolute Nucleated RBC Nucleated RBC % (auto) Smear Tech's Comments PT INR APTT Sodium 155 H Potassium 3.8 Chloride 119 H Carbon Dioxide 25 Anion Gap 15 BUN 71 H Creatinine 1.63 H Estim Creat Clear Calc 46.8 Estimated GFR 42 POC Glucose 112 120 H Random Glucose 154 H Lactic Acid Lactic Acid Fup @ 2Hr Lactic Acid Fup @ 4Hr Calcium 7.8 L Magnesium Ferritin Total Bilirubin Direct Bilirubin AST ALT Alkaline Phosphatase Ammonia Lactate Dehydrogenase Total Creatine Kinase Troponin I High Sens C-Reactive Protein Total Protein Albumin Lipase Vitamin B12 Folate Procalcitonin TSH Urine Color Urine Appearance Urine pH Ur Specific [place] Urine Protein Urine Glucose (UA) Urine Ketones Urine Blood Urine Nitrite Ur Leukocyte Esterase Ethyl Alcohol T.pallidum Ab (EIA) Coronavirus (PCR) Hepatitis A IgM Ab Hep Bs Antigen Hep Bs Antibody Hep B Core Total Ab Hepatitis C Ab (EIA) HIV 1&2 Ab/P24 Ag 4thGn Influenza Type A (PCR) Influenza Type B (PCR) RSV RNA Qual (PCR) 03/25/20 03/25/20 03/25/20 20:59 21:08 21:08 WBC 8.2 RBC 3.27 L D Hgb 9.1 L D Hct 30.2 L D MCV 92.4 MCH 27.8 MCHC 30.1 L RDW 13.8 Plt Count 48 L MPV Not Reportable Immature Gran % (Auto) 0.5 H Neut % (Auto) 76.1 H Lymph % (Auto) 12.6 L [place] % (Auto) 9.3 Eos % (Auto) 1.3 Baso % (Auto) 0.2 Lymph # (Auto) 1.0 L [place] # (Auto) 0.8 Eos # (Auto) 0.1 Baso # (Auto) 0.0 Abs Immat Gran (auto) 0.04 H Absolute Neuts (auto) 6.2 Absolute Nucleated RBC 0.000 Nucleated RBC % (auto) 0.0 Smear Tech's Comments VERIFIED PT INR APTT Sodium 132 L Potassium 2.4 L* D Chloride 105 Carbon Dioxide 20 L Anion Gap 9 L BUN 43 H Creatinine 0.78 Estim Creat Clear Calc 97.8 Estimated GFR > 60 POC Glucose 99 Random Glucose 89 D Lactic Acid Lactic Acid Fup @ 2Hr Lactic Acid Fup @ 4Hr Calcium 5.3 L* D Magnesium Ferritin Total Bilirubin Direct Bilirubin AST ALT Alkaline Phosphatase Ammonia Lactate Dehydrogenase Total Creatine Kinase Troponin I High Sens C-Reactive Protein Total Protein Albumin Lipase Vitamin B12 Folate Procalcitonin TSH Urine Color Urine Appearance Urine pH Ur Specific [place] Urine Protein Urine Glucose (UA) Urine Ketones Urine Blood Urine Nitrite Ur Leukocyte Esterase Ethyl Alcohol T.pallidum Ab (EIA) Coronavirus (PCR) Hepatitis A IgM Ab Hep Bs Antigen Hep Bs Antibody Hep B Core Total Ab Hepatitis C Ab (EIA) HIV 1&2 Ab/P24 Ag 4thGn Influenza Type A (PCR) Influenza Type B (PCR) RSV RNA Qual (PCR) 03/25/20 03/26/20 03/26/20 22:15 05:27 05:27 WBC 9.9 RBC 4.42 L D Hgb 12.2 L D Hct 40.8 L D MCV 92.3 MCH 27.6 MCHC 29.9 L RDW 13.7 Plt Count 65 L D MPV Not Reportable Immature Gran % (Auto) Neut % (Auto) Lymph % (Auto) [place] % (Auto) Eos % (Auto) Baso % (Auto) Lymph # (Auto) [place] # (Auto) Eos # (Auto) Baso # (Auto) Abs Immat Gran (auto) Absolute Neuts (auto) Absolute Nucleated RBC 0.000 Nucleated RBC % (auto) 0.0 Smear Tech's Comments PT INR APTT Sodium 156 H 153 H Potassium 3.5 D 3.8 Chloride 117 H 119 H Carbon Dioxide 29 21 L Anion Gap 14 17 BUN 59 H 54 H Creatinine 1.40 1.22 Estim Creat Clear Calc 49.3 56.5 Estimated GFR 50 58 POC Glucose Random Glucose 127 H D 110 Lactic Acid Lactic Acid Fup @ 2Hr Lactic Acid Fup @ 4Hr Calcium 7.9 L D 7.9 L Magnesium Ferritin Total Bilirubin 1.5 H Direct Bilirubin AST 26 ALT 26 Alkaline Phosphatase 61 D Ammonia Lactate Dehydrogenase Total Creatine Kinase Troponin I High Sens C-Reactive Protein Total Protein 5.8 L D Albumin 3.2 L D Lipase Vitamin B12 Folate Procalcitonin TSH Urine Color Urine Appearance Urine pH Ur Specific [place] Urine Protein Urine Glucose (UA) Urine Ketones Urine Blood Urine Nitrite Ur Leukocyte Esterase Ethyl Alcohol T.pallidum Ab (EIA) Coronavirus (PCR) Hepatitis A IgM Ab Hep Bs Antigen Hep Bs Antibody Hep B Core Total Ab Hepatitis C Ab (EIA) HIV 1&2 Ab/P24 Ag 4thGn Influenza Type A (PCR) Influenza Type B (PCR) RSV RNA Qual (PCR) 03/26/20 03/26/20 03/26/20 09:20 11:18 12:28 WBC RBC Hgb 11.3 L Hct 37.3 L MCV MCH MCHC RDW Plt Count MPV Immature Gran % (Auto) Neut % (Auto) Lymph % (Auto) [place] % (Auto) Eos % (Auto) Baso % (Auto) Lymph # (Auto) [place] # (Auto) Eos # (Auto) Baso # (Auto) Abs Immat Gran (auto) Absolute Neuts (auto) Absolute Nucleated RBC Nucleated RBC % (auto) Smear Tech's Comments PT INR APTT Sodium Potassium Chloride Carbon Dioxide Anion Gap BUN Creatinine Estim Creat Clear Calc Estimated GFR POC Glucose 111 102 Random Glucose Lactic Acid Lactic Acid Fup @ 2Hr Lactic Acid Fup @ 4Hr Calcium Magnesium Ferritin Total Bilirubin Direct Bilirubin AST ALT Alkaline Phosphatase Ammonia Lactate Dehydrogenase Total Creatine Kinase Troponin I High Sens C-Reactive Protein Total Protein Albumin Lipase Vitamin B12 Folate Procalcitonin TSH Urine Color Urine Appearance Urine pH Ur Specific [place] Urine Protein Urine Glucose (UA) Urine Ketones Urine Blood Urine Nitrite Ur Leukocyte Esterase Ethyl Alcohol T.pallidum Ab (EIA) Coronavirus (PCR) Hepatitis A IgM Ab Hep Bs Antigen Hep Bs Antibody Hep B Core Total Ab Hepatitis C Ab (EIA) HIV 1&2 Ab/P24 Ag 4thGn Influenza Type A (PCR) Influenza Type B (PCR) RSV RNA Qual (PCR) 03/26/20 03/26/20 03/26/20 16:44 18:43 20:35 WBC RBC Hgb 11.5 L Hct 37.3 L MCV MCH MCHC RDW Plt Count MPV Immature Gran % (Auto) Neut % (Auto) Lymph % (Auto) [place] % (Auto) Eos % (Auto) Baso % (Auto) Lymph # (Auto) [place] # (Auto) Eos # (Auto) Baso # (Auto) Abs Immat Gran (auto) Absolute Neuts (auto) Absolute Nucleated RBC Nucleated RBC % (auto) Smear Tech's Comments PT INR APTT Sodium Potassium Chloride Carbon Dioxide Anion Gap BUN Creatinine Estim Creat Clear Calc Estimated GFR POC Glucose 128 H 141 H Random Glucose Lactic Acid Lactic Acid Fup @ 2Hr Lactic Acid Fup @ 4Hr Calcium Magnesium Ferritin Total Bilirubin Direct Bilirubin AST ALT Alkaline Phosphatase Ammonia Lactate Dehydrogenase Total Creatine Kinase Troponin I High Sens C-Reactive Protein Total Protein Albumin Lipase Vitamin B12 Folate Procalcitonin TSH Urine Color Urine Appearance Urine pH Ur Specific [place] Urine Protein Urine Glucose (UA) Urine Ketones Urine Blood Urine Nitrite Ur Leukocyte Esterase Ethyl Alcohol T.pallidum Ab (EIA) Coronavirus (PCR) Hepatitis A IgM Ab Hep Bs Antigen Hep Bs Antibody Hep B Core Total Ab Hepatitis C Ab (EIA) HIV 1&2 Ab/P24 Ag 4thGn Influenza Type A (PCR) Influenza Type B (PCR) RSV RNA Qual (PCR) 03/26/20 03/27/20 03/27/20 21:11 05:47 05:47 WBC 10.0 RBC 3.82 L Hgb 10.7 L Hct 34.3 L MCV 89.8 MCH 28.0 MCHC 31.2 RDW 13.2 Plt Count 68 L MPV Not Reportable Immature Gran % (Auto) Neut % (Auto) Lymph % (Auto) [place] % (Auto) Eos % (Auto) Baso % (Auto) Lymph # (Auto) [place] # (Auto) Eos # (Auto) Baso # (Auto) Abs Immat Gran (auto) Absolute Neuts (auto) Absolute Nucleated RBC 0.000 Nucleated RBC % (auto) 0.0 Smear Tech's Comments PT INR APTT Sodium 146 H Potassium 3.1 L Chloride 112 H Carbon Dioxide 26 Anion Gap 11 L BUN 29 H Creatinine 1.02 Estim Creat Clear Calc 67.6 Estimated GFR > 60 POC Glucose Random Glucose 222 H D Lactic Acid Lactic Acid Fup @ 2Hr Lactic Acid Fup @ 4Hr Calcium 7.5 L Magnesium Ferritin Total Bilirubin Direct Bilirubin AST ALT Alkaline Phosphatase Ammonia Lactate Dehydrogenase Total Creatine Kinase Troponin I High Sens C-Reactive Protein Total Protein Albumin Lipase Vitamin B12 Folate Procalcitonin TSH Urine Color Urine Appearance Urine pH Ur Specific [place] Urine Protein Urine Glucose (UA) Urine Ketones Urine Blood Urine Nitrite Ur Leukocyte Esterase Ethyl Alcohol T.pallidum Ab (EIA) Nonreactive Coronavirus (PCR) Hepatitis A IgM Ab Hep Bs Antigen Hep Bs Antibody Hep B Core Total Ab Hepatitis C Ab (EIA) HIV 1&2 Ab/P24 Ag 4thGn Influenza Type A (PCR) Influenza Type B (PCR) RSV RNA Qual (PCR) 03/27/20 03/27/20 03/27/20 05:47 05:47 07:40 WBC RBC Hgb Hct MCV MCH MCHC RDW Plt Count MPV Immature Gran % (Auto) Neut % (Auto) Lymph % (Auto) [place] % (Auto) Eos % (Auto) Baso % (Auto) Lymph # (Auto) [place] # (Auto) Eos # (Auto) Baso # (Auto) Abs Immat Gran (auto) Absolute Neuts (auto) Absolute Nucleated RBC Nucleated RBC % (auto) Smear Tech's Comments PT INR APTT Sodium Potassium Chloride Carbon Dioxide Anion Gap BUN Creatinine Estim Creat Clear Calc Estimated GFR POC Glucose 206 H Random Glucose Lactic Acid Lactic Acid Fup @ 2Hr Lactic Acid Fup @ 4Hr Calcium Magnesium Ferritin Total Bilirubin Direct Bilirubin AST ALT Alkaline Phosphatase Ammonia Lactate Dehydrogenase Total Creatine Kinase Troponin I High Sens C-Reactive Protein Total Protein Albumin Lipase Vitamin B12 241 Folate 11.8 Procalcitonin TSH Urine Color Urine Appearance Urine pH Ur Specific [place] Urine Protein Urine Glucose (UA) Urine Ketones Urine Blood Urine Nitrite Ur Leukocyte Esterase Ethyl Alcohol T.pallidum Ab (EIA) Coronavirus (PCR) Hepatitis A IgM Ab Nonreactive Hep Bs Antigen Negative Hep Bs Antibody NONREACTIVE Hep B Core Total Ab Nonreactive Hepatitis C Ab (EIA) Nonreactive HIV 1&2 Ab/P24 Ag 4thGn Nonreactive Influenza Type A (PCR) Influenza Type B (PCR) RSV RNA Qual (PCR) 03/27/20 03/27/20 03/27/20 11:34 16:40 20:15 WBC RBC Hgb Hct MCV MCH MCHC RDW Plt Count MPV Immature Gran % (Auto) Neut % (Auto) Lymph % (Auto) [place] % (Auto) Eos % (Auto) Baso % (Auto) Lymph # (Auto) [place] # (Auto) Eos # (Auto) Baso # (Auto) Abs Immat Gran (auto) Absolute Neuts (auto) Absolute Nucleated RBC Nucleated RBC % (auto) Smear Tech's Comments PT INR APTT Sodium Potassium Chloride Carbon Dioxide Anion Gap BUN Creatinine Estim Creat Clear Calc Estimated GFR POC Glucose 119 H 111 124 H Random Glucose Lactic Acid Lactic Acid Fup @ 2Hr Lactic Acid Fup @ 4Hr Calcium Magnesium Ferritin Total Bilirubin Direct Bilirubin AST ALT Alkaline Phosphatase Ammonia Lactate Dehydrogenase Total Creatine Kinase Troponin I High Sens C-Reactive Protein Total Protein Albumin Lipase Vitamin B12 Folate Procalcitonin TSH Urine Color Urine Appearance Urine pH Ur Specific [place] Urine Protein Urine Glucose (UA) Urine Ketones Urine Blood Urine Nitrite Ur Leukocyte Esterase Ethyl Alcohol T.pallidum Ab (EIA) Coronavirus (PCR) Hepatitis A IgM Ab Hep Bs Antigen Hep Bs Antibody Hep B Core Total Ab Hepatitis C Ab (EIA) HIV 1&2 Ab/P24 Ag 4thGn Influenza Type A (PCR) Influenza Type B (PCR) RSV RNA Qual (PCR) 03/28/20 03/28/20 03/28/20 05:43 05:43 07:59 WBC 13.1 H RBC 3.98 L Hgb 11.0 L Hct 35.6 L MCV 89.4 MCH 27.6 MCHC 30.9 L RDW 13.1 Plt Count 66 L MPV Not Reportable Immature Gran % (Auto) Neut % (Auto) Lymph % (Auto) [place] % (Auto) Eos % (Auto) Baso % (Auto) Lymph # (Auto) [place] # (Auto) Eos # (Auto) Baso # (Auto) Abs Immat Gran (auto) Absolute Neuts (auto) Absolute Nucleated RBC 0.000 Nucleated RBC % (auto) 0.0 Smear Tech's Comments PT INR APTT Sodium 145 Potassium 3.3 Chloride 111 H Carbon Dioxide 25 Anion Gap 12 BUN 19 H Creatinine 1.00 Estim Creat Clear Calc 69.0 Estimated GFR > 60 POC Glucose 165 H Random Glucose 171 H Lactic Acid Lactic Acid Fup @ 2Hr Lactic Acid Fup @ 4Hr Calcium 7.3 L Magnesium Ferritin Total Bilirubin Direct Bilirubin AST ALT Alkaline Phosphatase Ammonia Lactate Dehydrogenase Total Creatine Kinase Troponin I High Sens C-Reactive Protein Total Protein Albumin Lipase Vitamin B12 Folate Procalcitonin TSH Urine Color Urine Appearance Urine pH Ur Specific [place] Urine Protein Urine Glucose (UA) Urine Ketones Urine Blood Urine Nitrite Ur Leukocyte Esterase Ethyl Alcohol T.pallidum Ab (EIA) Coronavirus (PCR) Hepatitis A IgM Ab Hep Bs Antigen Hep Bs Antibody Hep B Core Total Ab Hepatitis C Ab (EIA) HIV 1&2 Ab/P24 Ag 4thGn Influenza Type A (PCR) Influenza Type B (PCR) RSV RNA Qual (PCR) 03/28/20 03/28/20 03/29/20 11:33 20:04 05:33 WBC 14.4 H RBC 4.11 L Hgb 11.4 L Hct 36.4 L MCV 88.6 MCH 27.7 MCHC 31.3 RDW 13.2 Plt Count 82 L MPV 14.7 H Immature Gran % (Auto) Neut % (Auto) Lymph % (Auto) [place] % (Auto) Eos % (Auto) Baso % (Auto) Lymph # (Auto) [place] # (Auto) Eos # (Auto) Baso # (Auto) Abs Immat Gran (auto) Absolute Neuts (auto) Absolute Nucleated RBC 0.000 Nucleated RBC % (auto) 0.0 Smear Tech's Comments PT INR APTT Sodium Potassium Chloride Carbon Dioxide Anion Gap BUN Creatinine Estim Creat Clear Calc Estimated GFR POC Glucose 135 H 116 H Random Glucose Lactic Acid Lactic Acid Fup @ 2Hr Lactic Acid Fup @ 4Hr Calcium Magnesium Ferritin Total Bilirubin Direct Bilirubin AST ALT Alkaline Phosphatase Ammonia Lactate Dehydrogenase Total Creatine Kinase Troponin I High Sens C-Reactive Protein Total Protein Albumin Lipase Vitamin B12 Folate Procalcitonin TSH Urine Color Urine Appearance Urine pH Ur Specific [place] Urine Protein Urine Glucose (UA) Urine Ketones Urine Blood Urine Nitrite Ur Leukocyte Esterase Ethyl Alcohol T.pallidum Ab (EIA) Coronavirus (PCR) Hepatitis A IgM Ab Hep Bs Antigen Hep Bs Antibody Hep B Core Total Ab Hepatitis C Ab (EIA) HIV 1&2 Ab/P24 Ag 4thGn Influenza Type A (PCR) Influenza Type B (PCR) RSV RNA Qual (PCR) 03/29/20 03/29/20 05:33 07:51 WBC RBC Hgb Hct MCV MCH MCHC RDW Plt Count MPV Immature Gran % (Auto) Neut % (Auto) Lymph % (Auto) [place] % (Auto) Eos % (Auto) Baso % (Auto) Lymph # (Auto) [place] # (Auto) Eos # (Auto) Baso # (Auto) Abs Immat Gran (auto) Absolute Neuts (auto) Absolute Nucleated RBC Nucleated RBC % (auto) Smear Tech's Comments PT INR APTT Sodium 147 H Potassium 3.4 Chloride 112 H Carbon Dioxide 26 Anion Gap 12 BUN 15 Creatinine 1.02 Estim Creat Clear Calc 67.6 Estimated GFR > 60 POC Glucose 144 H Random Glucose 118 H Lactic Acid Lactic Acid Fup @ 2Hr Lactic Acid Fup @ 4Hr Calcium 7.3 L Magnesium Ferritin Total Bilirubin Direct Bilirubin AST ALT Alkaline Phosphatase Ammonia Lactate Dehydrogenase Total Creatine Kinase Troponin I High Sens C-Reactive Protein Total Protein Albumin Lipase Vitamin B12 Folate Procalcitonin TSH Urine Color Urine Appearance Urine pH Ur Specific [place] Urine Protein Urine Glucose (UA) Urine Ketones Urine Blood Urine Nitrite Ur Leukocyte Esterase Ethyl Alcohol T.pallidum Ab (EIA) Coronavirus (PCR) Hepatitis A IgM Ab Hep Bs Antigen Hep Bs Antibody Hep B Core Total Ab Hepatitis C Ab (EIA) HIV 1&2 Ab/P24 Ag 4thGn Influenza Type A (PCR) Influenza Type B (PCR) RSV RNA Qual (PCR) Discharge Plan Discharge Patient Disposition: Hospice - Home Referrals: [facility] [Outside] Name,MD José Antonio [Primary Care Provider] - Discharge Medications: New morphine concentrate 100 mg/5 mL (20 mg/mL) solution 5 mg PO Q6H PRN (Reason: pain) Qty: 30 RF: 0 lorazepam [Ativan] 0.5 mg tablet 0.5 mg PO TID PRN (Reason: anxiety) Qty: 30 RF: 0 haloperidol lactate 2 mg/mL concentrate 1 mg PO Q8H PRN (Reason: delirium) 1 Days RF: 0 Continued donepezil 5 mg tablet 1 tab PO BEDTIME RF: 0 metoprolol succinate 50 mg tablet extended release 24 hr 1 tab PO DAILY RF: 0 citalopram 10 mg tablet 1 tab PO DAILY RF: 0 folic acid 1 mg tablet 1 tab PO DAILY RF: 0 memantine 10 mg tablet 1 tab PO BID RF: 0 quetiapine 50 mg tablet 1 tab PO DAILY RF: 0 multivitamin with folic acid [Tab-A-Gordon] 400 mcg tablet 1 tab PO DAILY RF: 0 Discharge Orders: Discharge Order (Routine); Ordered 03/29/20 Ordered By: Cornelius Daily Diet: other Activity on Discharge: As tolerated Visit Report Forms: Patient Portal Discharge page Care Plan Goals: To stay healthy and out of the hospital. Health Concerns: Advance Dementia Plan of Treatment: Advance Dementia - going home with hospice. May feed for comfort.
[2020-03-29 11:48] LABS: Glucose, Whole Blood 131 mg/dL (60-115)
[2020-03-29 12:09] VITALS: BP 113/65; PULSE 68; RESP 18
== END 2020-03-29 12:15 | disposition hospice, home (50) | DRG 682 ==
LOC: HO.ED 17:03 → HO.EDOVER 03-25 18:21 → HO.IMC 03-25 18:22
PROVIDERS: Internal Medicine; Internal Medicine Gastroenterology; Internal Medicine Nephrology; Physician Assistant; Physician Assistant Medical; Admitting Provider Family Medicine; Emergency Provider Emergency Medicine; PCP Internal Medicine Geriatric Medicine; Visit Provider Family Medicine
DX: N17.9 Acute kidney failure, unspecified (principal); G93.41 Metabolic encephalopathy; E87.0 Hyperosmolality and hypernatremia; E03.9 Hypothyroidism, unspecified; D69.6 Thrombocytopenia, unspecified; E11.9 Type 2 diabetes mellitus without complications; F03.90 Unspecified dementia, unspecified severity, without behavioral disturbance, psychotic disturbance, mood disturbance, and anxiety; E78.5 Hyperlipidemia, unspecified; G47.33 Obstructive sleep apnea (adult) (pediatric); E86.0 Dehydration; Z95.0 Presence of cardiac pacemaker; Z20.828 Contact with and (suspected) exposure to other viral communicable diseases; Z79.891 Long term (current) use of opiate analgesic; Z79.899 Other long term (current) drug therapy; Z66 Do not resuscitate
CPT/HCPCS: 0241U; 36415; 70450; 71045; 71250; 74176; 80048; 80051; 80053; 80076; 80320; 81003; 82140; 82550; 82607; 82728; 82746; 82947; 83605; 83615; 83690; 83735; 84145; 84295; 84443; 84484; 85014; 85018; 85025; 85027; 85610; 85730; 86140; 86704; 86706; 86709; 86780; 86803; 87040; 87340; 87389; 93005; 97161; 99225; 99284; C1758; J0696